=== PATIENT | female | born 1950 | race Caucasian/White ===

== ENCOUNTER → 2022-11-25 | Outpatient (CLI) | payer MEDICARE, MEDICAID | LOC: WOUNDCARE 09:47 | PROVIDERS: ATTEND Family Medicine | DX: Z47.2 Encounter for removal of internal fixation device (principal); T81.31XA Disruption of external operation (surgical) wound, not elsewhere classified, initial encounter; T84.54XA Infection and inflammatory reaction due to internal left knee prosthesis, initial encounter; M35.00 Sjogren syndrome, unspecified; E66.01 Morbid (severe) obesity due to excess calories; E43 Unspecified severe protein-calorie malnutrition; M62.81 Muscle weakness (generalized); D50.0 Iron deficiency anemia secondary to blood loss (chronic); N18.2 Chronic kidney disease, stage 2 (mild); L24.A2 Irritant contact dermatitis due to fecal, urinary or dual incontinence; R15.9 Full incontinence of feces; R32 Unspecified urinary incontinence; R19.7 Diarrhea, unspecified; E55.9 Vitamin D deficiency, unspecified | CPT/HCPCS: 11043; 87070; 87077; 87205 ==

== ENCOUNTER → 2022-11-30 | Outpatient (CLI) | payer MEDICARE, MEDICAID | LOC: WOUNDCARE 13:57 | PROVIDERS: ATTEND Family Medicine | DX: Z47.2 Encounter for removal of internal fixation device (principal); T81.31XA Disruption of external operation (surgical) wound, not elsewhere classified, initial encounter; T84.54XA Infection and inflammatory reaction due to internal left knee prosthesis, initial encounter; I96 Gangrene, not elsewhere classified; M35.00 Sjogren syndrome, unspecified; E66.01 Morbid (severe) obesity due to excess calories; E43 Unspecified severe protein-calorie malnutrition; D50.0 Iron deficiency anemia secondary to blood loss (chronic); N18.2 Chronic kidney disease, stage 2 (mild); L24.A2 Irritant contact dermatitis due to fecal, urinary or dual incontinence; E55.9 Vitamin D deficiency, unspecified; B95.2 Enterococcus as the cause of diseases classified elsewhere; R15.9 Full incontinence of feces; R19.7 Diarrhea, unspecified; Z68.43 Body mass index [BMI] 50.0-59.9, adult | CPT/HCPCS: 11042; 17250 ==

== ENCOUNTER → 2022-12-07 | Outpatient (CLI) | payer MEDICARE, MEDICAID | LOC: WOUNDCARE 13:44 | PROVIDERS: ATTEND Family Medicine | DX: T81.31XA Disruption of external operation (surgical) wound, not elsewhere classified, initial encounter (principal); Z47.2 Encounter for removal of internal fixation device; T84.54XA Infection and inflammatory reaction due to internal left knee prosthesis, initial encounter; M35.00 Sjogren syndrome, unspecified; E66.01 Morbid (severe) obesity due to excess calories; E43 Unspecified severe protein-calorie malnutrition; M62.81 Muscle weakness (generalized); D50.0 Iron deficiency anemia secondary to blood loss (chronic); N18.2 Chronic kidney disease, stage 2 (mild); L24.A2 Irritant contact dermatitis due to fecal, urinary or dual incontinence; R15.9 Full incontinence of feces; R32 Unspecified urinary incontinence; R19.7 Diarrhea, unspecified; E55.9 Vitamin D deficiency, unspecified; B95.2 Enterococcus as the cause of diseases classified elsewhere; D52.9 Folate deficiency anemia, unspecified; I96 Gangrene, not elsewhere classified | CPT/HCPCS: 11043 ==

== ENCOUNTER → 2022-12-10 | Outpatient (CLI) | payer MEDICARE, MEDICAID ==
[~2022-12-10] MED LIST: GADOTERATE 0.5 MMOL/ML (CLARISCAN) 20 ML VIAL IV ONE
--- NOTE | 2022-12-10 13:32 | Diagnostic Imaging Report ---
PROCEDURE: MRI left joint lower extremity with and without contrast. TECHNIQUE: Multiplanar, multisequence pre and post contrast-enhanced MRI of the left lower extremity was accomplished. INDICATION: Knee pain. Prior knee arthroplasty has been removed. Skin wound. COMPARISON: None available. FINDINGS: There are surgical changes from prior total knee arthroplasty has been removed and antibiotic spacer is placed at the level of the expected tibia and fibular components. There are central intramedullary tracks of T2 hyperintensity and T1 isointense signal within the proximal tibia and fibula likely correspond to sites of the stem components that were removed. There is enhancement within these intramedullary tracks which could be granulation tissue versus infection. A concern for infection is further a spine fact there is a dermal wound in the infrapatellar region that appears to directly communicate with the joint space at the level the intercondylar region. There is a small amount of fluid between the interbody spacers the could represent abscess. Outside of the intramedullary tracks, there is no significant T2 hyperintense or T1 hypointense marrow replacement. The patella is high riding and a normal patellar tendon is not identified. Therefore, this may be chronically torn. IMPRESSION: 1. Dermal wound in the infrapatellar region has a sinus tract directly communicating with the knee joint and therefore intra-articular infection is likely present. 2. Tibial and femoral spaces are in place. The enhancement around the spacers may be infectious in nature or due to granulation tissue from prior hardware being removed. 3. The signal within the intramedullary tibia and femoral tracks from prior hardware removal could be due to osteomyelitis or granulation tissue associated with the hardware removal. Dictated by: Dictated on workstation # [id number]
== END ==
LOC: RAD 09:25
PROVIDERS: ATTEND Family Medicine
DX: Z47.2 Encounter for removal of internal fixation device (principal); T81.31XA Disruption of external operation (surgical) wound, not elsewhere classified, initial encounter; T84.54XA Infection and inflammatory reaction due to internal left knee prosthesis, initial encounter; M35.00 Sjogren syndrome, unspecified; E66.01 Morbid (severe) obesity due to excess calories; E43 Unspecified severe protein-calorie malnutrition; M62.81 Muscle weakness (generalized); D50.0 Iron deficiency anemia secondary to blood loss (chronic); N18.2 Chronic kidney disease, stage 2 (mild); L24.A2 Irritant contact dermatitis due to fecal, urinary or dual incontinence; R15.9 Full incontinence of feces; R32 Unspecified urinary incontinence; R19.7 Diarrhea, unspecified; E55.9 Vitamin D deficiency, unspecified; B95.2 Enterococcus as the cause of diseases classified elsewhere; D52.9 Folate deficiency anemia, unspecified
CPT/HCPCS: 73723

== ENCOUNTER → 2022-12-17 | Outpatient (CLI) | payer MEDICARE, MEDICAID | LOC: WOUNDCARE 12:08 | PROVIDERS: ATTEND Family Medicine | DX: T81.31XA Disruption of external operation (surgical) wound, not elsewhere classified, initial encounter (principal); Z47.2 Encounter for removal of internal fixation device; T84.54XA Infection and inflammatory reaction due to internal left knee prosthesis, initial encounter; M35.00 Sjogren syndrome, unspecified; E66.01 Morbid (severe) obesity due to excess calories; E43 Unspecified severe protein-calorie malnutrition; M62.81 Muscle weakness (generalized); D50.0 Iron deficiency anemia secondary to blood loss (chronic); N18.2 Chronic kidney disease, stage 2 (mild); L24.A2 Irritant contact dermatitis due to fecal, urinary or dual incontinence; R15.9 Full incontinence of feces; R32 Unspecified urinary incontinence; R19.7 Diarrhea, unspecified; E55.9 Vitamin D deficiency, unspecified; B95.2 Enterococcus as the cause of diseases classified elsewhere; D52.9 Folate deficiency anemia, unspecified; I96 Gangrene, not elsewhere classified | CPT/HCPCS: 11042 ==

== ENCOUNTER → 2022-12-24 | Outpatient (CLI) | payer MEDICARE, MEDICAID | LOC: WOUNDCARE 14:42 | PROVIDERS: ATTEND Family Medicine | DX: I96 Gangrene, not elsewhere classified (principal); T81.31XA Disruption of external operation (surgical) wound, not elsewhere classified, initial encounter; T84.54XA Infection and inflammatory reaction due to internal left knee prosthesis, initial encounter; M35.00 Sjogren syndrome, unspecified; M62.81 Muscle weakness (generalized); D52.9 Folate deficiency anemia, unspecified; N18.2 Chronic kidney disease, stage 2 (mild); L24.A2 Irritant contact dermatitis due to fecal, urinary or dual incontinence; E66.01 Morbid (severe) obesity due to excess calories; E43 Unspecified severe protein-calorie malnutrition; R19.7 Diarrhea, unspecified; B95.2 Enterococcus as the cause of diseases classified elsewhere; R15.9 Full incontinence of feces; R32 Unspecified urinary incontinence; E55.9 Vitamin D deficiency, unspecified; Z47.2 Encounter for removal of internal fixation device; Z68.41 Body mass index [BMI] 40.0-44.9, adult | CPT/HCPCS: 99212 ==

== ENCOUNTER → 2023-01-13 | Outpatient (CLI) | payer MEDICARE, MEDICAID | LOC: WOUNDCARE 13:13 | PROVIDERS: ATTEND Family Medicine | DX: T81.31XA Disruption of external operation (surgical) wound, not elsewhere classified, initial encounter (principal); T84.54XA Infection and inflammatory reaction due to internal left knee prosthesis, initial encounter; M35.00 Sjogren syndrome, unspecified; E66.01 Morbid (severe) obesity due to excess calories; E43 Unspecified severe protein-calorie malnutrition; M62.81 Muscle weakness (generalized); D50.0 Iron deficiency anemia secondary to blood loss (chronic); N18.2 Chronic kidney disease, stage 2 (mild); L24.A2 Irritant contact dermatitis due to fecal, urinary or dual incontinence; R15.9 Full incontinence of feces; R32 Unspecified urinary incontinence; R19.7 Diarrhea, unspecified; E55.9 Vitamin D deficiency, unspecified; B95.2 Enterococcus as the cause of diseases classified elsewhere; D52.9 Folate deficiency anemia, unspecified; M86.262 Subacute osteomyelitis, left tibia and fibula | CPT/HCPCS: 99212 ==

== ENCOUNTER → 2023-01-31 | Outpatient (CLI) | payer MEDICARE, MEDICAID ==
[2023-01-31 10:41] LABS: BILIRUBIN,URINE NEGATIVE (NEGATIVE); CLARITY,URINE CLOUDY; COLOR,URINE YELLOW; GLUCOSE, URINE (UA) NEGATIVE (NEGATIVE); KETONES,URINE NEGATIVE (NEGATIVE); LEUKOCYTE ESTERASE ,URINE 2+ (NEGATIVE); NITRITE,URINE NEGATIVE (NEGATIVE); PROTEIN,URINE NEGATIVE (NEGATIVE)
[2023-01-31 10:51] LABS: BACTERIA,URINE TRACE /HPF; SQUAMOUS EPITHELIAL CELL,UR RARE /HPF; WBC,URINE 25-50 /HPF
== END ==
LOC: CVS 10:33
PROVIDERS: ATTEND Internal Medicine
DX: Z01.89 Encounter for other specified special examinations (principal)
CPT/HCPCS: 81000; 87077; 87088; 87186

== ENCOUNTER 2023-03-21 16:02 | Emergency (ER) | payer MEDICARE, MEDICAID ==
[~2023-03-21] VITALS: Ht 170.2 cm; Wt 112.9 kg
[2023-03-21 16:47] LABS: BILIRUBIN,URINE NEGATIVE (NEGATIVE); CLARITY,URINE CLEAR; COLOR,URINE YELLOW; GLUCOSE, URINE (UA) NEGATIVE (NEGATIVE); KETONES,URINE NEGATIVE (NEGATIVE); LEUKOCYTE ESTERASE ,URINE 3+ (NEGATIVE); NITRITE,URINE POSITIVE (NEGATIVE); PH,URINE 6.5 (5-9); PROTEIN,URINE TRACE (NEGATIVE)
[2023-03-21 17:04] LABS: BASOPHILS % (AUTO) 0 % (0-10); EOSINOPHILS # (AUTO) 0.1 10^3/uL (0.0-0.3); EOSINOPHILS % (AUTO) 1 % (0-10); HEMATOCRIT 34 % (35-52); LYMPHOCYTES # (AUTO) 1.1 10^3/uL (1.0-4.0); LYMPHOCYTES % (AUTO) 10 % (12-44); MEAN CORPUSCULAR HEMOGLOBIN 28 pg (25-34); MEAN CORPUSCULAR HGB CONC 32 g/dL (32-36); MEAN CORPUSCULAR VOLUME 87 fL (80-99); MEAN PLATELET VOLUME 11.3 fL (9.0-12.2); MONOCYTES # (AUTO) 0.9 10^3/uL (0.0-1.0); MONOCYTES % (AUTO) 8 % (0-12); NEUTROPHILS # (AUTO) 8.6 10^3/uL (1.8-7.8); NEUTROPHILS % (AUTO) 80 % (42-75); PLATELET COUNT 262 10^3/uL (130-400); WHITE BLOOD COUNT 10.8 10^3/uL (4.3-11.0)
[2023-03-21 17:12] LABS: RBC,URINE RARE /HPF
[2023-03-21 17:13] LABS: ALBUMIN 2.6 GM/DL (3.2-4.5); POTASSIUM 3.7 MMOL/L (3.6-5.0)
[2023-03-21 17:13] LABS: BACTERIA,URINE MODERATE /HPF; CALCIUM OXALATE CRYSTALS,UR RARE /LPF; SQUAMOUS EPITHELIAL CELL,UR 0-2 /HPF
[2023-03-21 17:14] LABS: CALCIUM 8.3 MG/DL (8.5-10.1)
[2023-03-21 17:15] LABS: TOTAL PROTEIN 6.9 GM/DL (6.4-8.2)
[2023-03-21 17:17] LABS: BILIRUBIN,TOTAL 0.3 MG/DL (0.1-1.0)
[2023-03-21 17:19] LABS: CREATININE SERUM 0.88 MG/DL (0.60-1.30); INR 1.1 (0.8-1.4); PROTHROMBIN TIME PATIENT 14.4 SEC (12.2-14.7)
--- NOTE | 2023-03-21 17:57 | ED Lower Extremity ---
General Chief Complaint: Lower Extremity Stated Complaint: LEFT KNEE Nursing Triage Note: PT BROUGHT IN BY [facility] FROM [facility] WITH COMPLAINT OF POSSIBLE INFECTION OF AKA OF LEFT LEG. PT HAD AKA February. (PENELOPE HEAD) History of Present Illness Date Seen by Provider: March 21, 2023 Time Seen by Provider: 16:06 Initial Comments 72 year old female presents with concerns for infection to her left AKA. Surgery was in [place] on 03/09/2023. Staff at [facility] felt the wound was red and warm. She had more drainage over the last 12 hours. Dressing has serosanguineous drainage present. She is unsure when it was last changed. A new dressing was applied. She had TKR by Dr. Rodriguez in [place], [place] that became infected and was then removed. She attended wound care here and final plan was AKA, as it was not felt the infection could be cleared and new implants placed. Patient denies injury to her left leg. She has limited mobility and pressure to the stump. Onset: this morning Pain/Injury Location: left leg Method of Injury: unknown (PENELOPE HEAD) Allergies and Home Medications Allergies Coded Allergies: latex (Unverified Allergy, Unknown, 12/10/22) Patient Home Medication List Home Medication List Reviewed: Yes (PENELOPE HEAD) Ciprofloxacin HCl (Ciprofloxacin HCl) 500 Mg Tablet, 500 MG PO BID Prescribed by: PENELOPE HEAD on 03/21/231808 Review of Systems Constitutional: no symptoms reported, see HPI Skin: see HPI, other (wound concerns left AKA) (PENELOPE HEAD) All Other Systems Reviewed Negative Unless Noted: Yes (PENELOPE HEAD) Past Bngyjva-Mnvjej-Jqyiut Hx Patient Social History Tobacco Use?: No Use of E-Cig and/or Vaping dev: No Substance use?: No Alcohol Use?: No Pt feels they are or have been: No (PENELOPE HEAD) Family Medical History Reviewed Nursing Family Hx (PENELOPE HEAD) Physical Exam Vital Signs Vital Signs - First Documented 03/21/23 16:06 Temp 36.0 Pulse 64 Resp 16 B/P (MAP) 120/64 (82) Pulse Ox 100 O2 Delivery Room Air (BRENDA ECHEVARRIA MD) Vital Signs Capillary Refill : Less Than 3 Seconds (PENELOPE HEAD) Height, Weight, BMI Height: '" Weight: lbs. oz. kg; 38.00 BMI Method: General Appearance: WD/WN, no apparent distress Neck: non-tender, full range of motion, supple, normal inspection Cardiovascular: normal peripheral pulses, regular rate, rhythm Respiratory: chest non-tender, lungs clear, normal breath sounds Legs: right leg non-tender, right leg normal inspection, right leg limited range of motion; left leg soft tissue tenderness (incision to left AKA, sutures intact, no active bleeding or drainage. No warmth and trace erythema on posterior side, blanchable. ) Neurologic/Psychiatric: no motor/sensory deficits, alert, normal mood/affect, oriented x 3 Skin: normal color, warm/dry (PENELOPE HEAD) Progress/Results/Core Measures Results/Orders Lab Results Laboratory Tests Test 03/21/23 16:40 03/21/23 16:50 Range/Units Urine Color YELLOW Urine Clarity CLEAR Urine pH 6.5 5-9 Urine Specific [place] <=1.005 1.016-1.022 Urine Protein TRACE H NEGATIVE Urine Glucose (UA) NEGATIVE NEGATIVE Urine Ketones NEGATIVE NEGATIVE Urine Nitrite POSITIVE H NEGATIVE Urine Bilirubin NEGATIVE NEGATIVE Urine Urobilinogen 0.2 < = 1.0 MG/DL Urine Leukocyte Esterase 3+ H NEGATIVE Urine RBC (Auto) 1+ H NEGATIVE Urine RBC RARE /HPF Urine WBC 10-25 H /HPF Urine Squamous Epithelial Cells 0-2 /HPF Urine Crystals PRESENT H /LPF Urine Calcium Oxalate Crystals RARE H /LPF Urine Bacteria MODERATE H /HPF Urine Casts NONE /LPF Urine Mucus NEGATIVE /LPF Urine Culture Indicated YES White Blood Count 10.8 4.3-11.0 10^3/uL Red Blood Count 3.95 3.80-5.11 10^6/uL Hemoglobin 11.0 L 11.5-16.0 g/dL Hematocrit 34 L 35-52 % Mean Corpuscular Volume 87 80-99 fL Mean Corpuscular Hemoglobin 28 25-34 pg Mean Corpuscular Hemoglobin Concent 32 32-36 g/dL Red Cell Distribution Width 17.6 H 10.0-14.5 % Platelet Count 262 130-400 10^3/uL Mean Platelet Volume 11.3 9.0-12.2 fL Immature Granulocyte % (Auto) 1 % Neutrophils (%) (Auto) 80 H 42-75 % Lymphocytes (%) (Auto) 10 L 12-44 % Monocytes (%) (Auto) 8 0-12 % Eosinophils (%) (Auto) 1 0-10 % Basophils (%) (Auto) 0 0-10 % Neutrophils # (Auto) 8.6 H 1.8-7.8 10^3/uL Lymphocytes # (Auto) 1.1 1.0-4.0 10^3/uL Monocytes # (Auto) 0.9 0.0-1.0 10^3/uL Eosinophils # (Auto) 0.1 0.0-0.3 10^3/uL Basophils # (Auto) 0.0 0.0-0.1 10^3/uL Immature Granulocyte # (Auto) 0.1 0.0-0.1 10^3/uL Prothrombin Time 14.4 12.2-14.7 SEC INR Comment 1.1 0.8-1.4 Activated Partial Thromboplast Time 46 H 24-35 SEC Sodium Level 138 135-145 MMOL/L Potassium Level 3.7 3.6-5.0 MMOL/L Chloride Level 99 98-107 MMOL/L Carbon Dioxide Level 26 21-32 MMOL/L Anion Gap 13 5-14 MMOL/L Blood Urea Nitrogen 29 H 7-18 MG/DL Creatinine 0.88 0.60-1.30 MG/DL Estimat Glomerular Filtration Rate 70 BUN/Creatinine Ratio 33 Glucose Level 97 70-105 MG/DL Calcium Level 8.3 L 8.5-10.1 MG/DL Corrected Calcium 9.4 8.5-10.1 MG/DL Total Bilirubin 0.3 0.1-1.0 MG/DL Aspartate Amino Transf (AST/SGOT) 18 5-34 U/L Alanine Aminotransferase (ALT/SGPT) 11 0-55 U/L Alkaline Phosphatase 93 40-136 U/L C-Reactive Protein High Sensitivity 13.15 H 0.00-0.50 MG/DL Total Protein 6.9 6.4-8.2 GM/DL Albumin 2.6 L 3.2-4.5 GM/DL (BRENDA ECHEVARRIA MD) Vital Signs/I&O 03/21/23 16:06 Temp 36.0 Pulse 64 Resp 16 B/P (MAP) 120/64 (82) Pulse Ox 100 O2 Delivery Room Air (BRENDA ECHEVARRIA MD) Blood Pressure Mean: 82 Progress Progress Note : Time: 16:06 Progress Note Patient assessed, will obtain labs and reevaluate. 1640 new ABD dressing to left stump, no active bleeding. Will assess to deter mine if any bleeding. 1730 dressing dry and intact to left stump. Labs show no evidence of infection with normal WBC. UA shows UTI. Will provide antibiotics, pain medication, and return to [facility]. Patient requesting transfer back to [facility]. 1740 [facility] notified, they do not have a van that her wc can fit in. They are requesting [facility] to return her. 1800 [facility] does not have unit available, due to airport transfer. [facility] notified and patient reports she has an old WC in her room and it will fit in their van. 181 [facility] reports the other wc is not available, PT has taken it back. Patient told she will need to wait for [facility] to transport her. She is agreeable. Pain improved. 1910 patient has no complaints. Called [facility], no unit available to transport patient. [facility] notified and they have no ability to get patient. 1956 [facility] here to transport patient. Dressing continues to have no bleeding at left stump. Discharge instructions and return precautions reviewed (PENELOPE HEAD) Departure Impression Primary Impression: Above knee amputation of left lower extremity Additional Impression: UTI (urinary tract infection) Qualified Codes: N30.01 - Acute cystitis with hematuria Disposition: HOME, SELF-CARE Condition: Improved Departure-Patient Inst. Decision time for Depature: 18:00 (PENELOPE HEAD) Referrals: KALIN LONDONO MD (PCP/Family) Primary Care Physician Patient Instructions: Urinary Tract Infection, Adult (DC), Wound Care (DC) Add. Discharge Instructions: Change dressing to left stump three times daily and more often as needed. Antibiotics for UTI. Keep scheduled appointment with primary care and surgeon in [place] as needed. Change position every 2 hours while in bed and keep pillow under left thigh, to keep pressure off left stump. Return to the emergency department for new, urgent healthcare needs. All discharge instructions reviewed with patient and/or family. Voiced understanding. Scripts Ciprofloxacin HCl (Ciprofloxacin HCl) 500 Mg Tablet 500 MG PO BID, #14 TAB 0 Refills Prov: PENELOPE HEAD 03/21/23 ATTENDING PHYSICIAN NOTE: I was physically present as attending physician in the emergency department during the care of this patient, but I was not directly involved in the decision making or delivery of care for this patient. (BRENDA ECHEVARRIA MD) PENELOPE HEAD March 21, 2023 17:57 BRENDA ECHEVARRIA MD March 21, 2023 21:24
[2023-03-21] MEDS ORDERED: CIPROFLOXACIN 500 MG (CIPRO) TABLET PO STA (18:01)
[2023-03-21] MEDS ORDERED: HYDROcodone/APAP 7.5 MG/325 MG (LORTAB, LORCET PLUS) TABLET PO STA (18:01)
[2023-03-21] MEDS ORDERED: CIPR500T5 PO (18:09)
[2023-03-21 20:08] VITALS: BP 169/82
== END 2023-03-21 20:08 | disposition home or self-care (01) ==
LOC: EDUNIT# 16:02 → ER 16:04
DX: Z89.612 Acquired absence of left leg above knee (principal); N39.0 Urinary tract infection, site not specified
CPT/HCPCS: 36415; 80053; 81000; 85025; 85610; 85730; 86141; 87077; 87088

== ENCOUNTER → 2023-04-05 | Outpatient (CLI) | payer MEDICARE, MEDICAID ==
[~2023-04-05] MED LIST changes: +CIPR500T5 PO; -GADOTERATE 0.5 MMOL/ML (CLARISCAN) 20 ML VIAL IV ONE
== END ==
LOC: WOUNDCARE 12:21
PROVIDERS: ATTEND Family Medicine
DX: T81.31XA Disruption of external operation (surgical) wound, not elsewhere classified, initial encounter (principal); A49.02 Methicillin resistant Staphylococcus aureus infection, unspecified site; D46.4 Refractory anemia, unspecified; E66.01 Morbid (severe) obesity due to excess calories; Z68.41 Body mass index [BMI] 40.0-44.9, adult; E44.0 Moderate protein-calorie malnutrition; E55.9 Vitamin D deficiency, unspecified; M35.00 Sjogren syndrome, unspecified
CPT/HCPCS: 11042; 87070; 87205; G0463; 87077

== ENCOUNTER → 2023-04-13 | Outpatient (CLI) | payer MEDICARE, MEDICAID | LOC: WOUNDCARE 14:01 | PROVIDERS: ATTEND Family Medicine | DX: T81.31XA Disruption of external operation (surgical) wound, not elsewhere classified, initial encounter (principal); B95.62 Methicillin resistant Staphylococcus aureus infection as the cause of diseases classified elsewhere; D46.4 Refractory anemia, unspecified; E66.01 Morbid (severe) obesity due to excess calories; Z68.41 Body mass index [BMI] 40.0-44.9, adult; E44.0 Moderate protein-calorie malnutrition; E55.9 Vitamin D deficiency, unspecified; M35.00 Sjogren syndrome, unspecified; T87.89 Other complications of amputation stump; I96 Gangrene, not elsewhere classified | CPT/HCPCS: 11042; G0463 ==

== ENCOUNTER → 2023-04-16 | Outpatient (CLI) | payer MEDICAID, MEDICARE ==
[~2023-04-16] MED LIST changes: +CATHETER FLUSH 10 ML SYR IV PRN; +HOLD METFORMIN - RECEIVED CONTRAST 20 ML VIAL IV SCH; +IOHEXOL 350 MG/ML 100 ML (OMNIPAQUE 350) VIAL IV ONE; +NS 100 ML (IVPB) BAG IV ONE
--- NOTE | 2023-04-16 14:48 | Diagnostic Imaging Report ---
PROCEDURE: CT left lower extremity with contrast. TECHNIQUE: Multiple axial images of the left lower extremity were obtained after intravenous administration of iodinated contrast. Auto Exposure Controls were utilized during the CT exam to meet ALARA standards for radiation dose reduction. INDICATION: Thrcn-pwn-ujtl amputation. Postoperative infection. COMPARISON: Preoperative MRI from 12/10/2022. FINDINGS: Kgsjn-qiu-axsi amputation has been performed at the level of the mid femoral shaft. Just distal to the residual femoral shaft, there is either a single collection within the communication between two bulbous components or two separate collections. The more posterior larger collection measures 5.6 x 3.8 x 5.2 cm. Anterior to this, there is a thin elongated component of a collection measuring 5.2 x 3.3 x 2.1 cm. There is induration within the subcutaneous fat of the amputation stump overlying these collections. A small amount of periosteal reaction is present at the level of the distal femoral shaft, and this can be seen as a physiologic response following amputation. Alternatively, osteomyelitis could also give this appearance. The remainder of the hip is normal in appearance. A large amount of stool is present within the visualized aspects of the rectum. IMPRESSION: 1. There are either two adjacent or a single rim-enhancing fluid collection with a thin neck in the amputation stump at the distal aspect of the femur. This fluid collection could be a hematoma, but the sterility cannot be assessed by imaging. Ultrasound-guided aspiration could be performed for fluid sampling, as deemed clinically indicated. 2. Mild periosteal reaction of the distal femoral shaft at the level of the amputation may be physiologic response following amputation. However, osteomyelitis could also give this appearance. Dictated by: Dictated on workstation # [id number]
== END ==
LOC: RAD 04-15 10:15
PROVIDERS: ATTEND Family Medicine
DX: T81.31XA Disruption of external operation (surgical) wound, not elsewhere classified, initial encounter (principal); A49.02 Methicillin resistant Staphylococcus aureus infection, unspecified site; D46.4 Refractory anemia, unspecified; E66.01 Morbid (severe) obesity due to excess calories; E44.0 Moderate protein-calorie malnutrition; E55.9 Vitamin D deficiency, unspecified; M35.00 Sjogren syndrome, unspecified; T87.89 Other complications of amputation stump; Z68.41 Body mass index [BMI] 40.0-44.9, adult; Z98.890 Other specified postprocedural states
CPT/HCPCS: 73701

== ENCOUNTER → 2023-04-19 | Outpatient (CLI) | payer MEDICARE ==
[~2023-04-19] MED LIST changes: -CATHETER FLUSH 10 ML SYR IV PRN; -HOLD METFORMIN - RECEIVED CONTRAST 20 ML VIAL IV SCH; -IOHEXOL 350 MG/ML 100 ML (OMNIPAQUE 350) VIAL IV ONE; -NS 100 ML (IVPB) BAG IV ONE
== END ==
LOC: WOUNDCARE 12:18
PROVIDERS: ATTEND Family Medicine
DX: T81.31XA Disruption of external operation (surgical) wound, not elsewhere classified, initial encounter (principal); A49.01 Methicillin susceptible Staphylococcus aureus infection, unspecified site; D46.4 Refractory anemia, unspecified; E66.01 Morbid (severe) obesity due to excess calories; E44.0 Moderate protein-calorie malnutrition; E55.9 Vitamin D deficiency, unspecified; M35.00 Sjogren syndrome, unspecified; T87.89 Other complications of amputation stump; T87.44 Infection of amputation stump, left lower extremity; I96 Gangrene, not elsewhere classified; Z68.41 Body mass index [BMI] 40.0-44.9, adult
CPT/HCPCS: 99212

== ENCOUNTER → 2023-04-26 | Outpatient (CLI) | payer MEDICARE ==
[2023-04-26 13:34] LABS: BASOPHILS # (AUTO) 0.1 10^3/uL (0.0-0.1); BASOPHILS % (AUTO) 1 % (0-10); EOSINOPHILS % (AUTO) 0 % (0-10); HEMATOCRIT 29 % (35-52); HEMOGLOBIN 8.9 g/dL (11.5-16.0); LYMPHOCYTES # (AUTO) 1.6 10^3/uL (1.0-4.0); LYMPHOCYTES % (AUTO) 17 % (12-44); MEAN CORPUSCULAR HEMOGLOBIN 27 pg (25-34); MEAN CORPUSCULAR HGB CONC 31 g/dL (32-36); MEAN CORPUSCULAR VOLUME 87 fL (80-99); MEAN PLATELET VOLUME 11.1 fL (9.0-12.2); MONOCYTES # (AUTO) 0.7 10^3/uL (0.0-1.0); MONOCYTES % (AUTO) 7 % (0-12); NEUTROPHILS # (AUTO) 7.1 10^3/uL (1.8-7.8); NEUTROPHILS % (AUTO) 75 % (42-75); PLATELET COUNT 206 10^3/uL (130-400); WHITE BLOOD COUNT 9.5 10^3/uL (4.3-11.0)
== END ==
LOC: WOUNDCARE 12:28
PROVIDERS: ATTEND Family Medicine
DX: T81.31XA Disruption of external operation (surgical) wound, not elsewhere classified, initial encounter (principal); A49.02 Methicillin resistant Staphylococcus aureus infection, unspecified site; D46.4 Refractory anemia, unspecified; E66.01 Morbid (severe) obesity due to excess calories; Z68.41 Body mass index [BMI] 40.0-44.9, adult; E44.0 Moderate protein-calorie malnutrition; E55.9 Vitamin D deficiency, unspecified; M35.00 Sjogren syndrome, unspecified; T87.89 Other complications of amputation stump; T87.44 Infection of amputation stump, left lower extremity; I96 Gangrene, not elsewhere classified
CPT/HCPCS: 85025; G0463; 36415; 99212

== ENCOUNTER → 2023-05-03 | Outpatient (CLI) | payer MEDICARE | LOC: WOUNDCARE 12:36 | PROVIDERS: ATTEND Family Medicine | DX: T81.31XA Disruption of external operation (surgical) wound, not elsewhere classified, initial encounter (principal); D46.4 Refractory anemia, unspecified; E66.01 Morbid (severe) obesity due to excess calories; E44.0 Moderate protein-calorie malnutrition; E55.9 Vitamin D deficiency, unspecified; T87.89 Other complications of amputation stump; A49.02 Methicillin resistant Staphylococcus aureus infection, unspecified site; M35.00 Sjogren syndrome, unspecified; T87.44 Infection of amputation stump, left lower extremity; Z68.41 Body mass index [BMI] 40.0-44.9, adult | CPT/HCPCS: 11042; A6197; G0463 ==

== ENCOUNTER → 2023-05-10 | Outpatient (CLI) | payer MEDICARE | LOC: WOUNDCARE 12:32 | PROVIDERS: ATTEND Family Medicine | DX: I96 Gangrene, not elsewhere classified (principal); T81.31XA Disruption of external operation (surgical) wound, not elsewhere classified, initial encounter; A49.02 Methicillin resistant Staphylococcus aureus infection, unspecified site; D46.4 Refractory anemia, unspecified; E66.01 Morbid (severe) obesity due to excess calories; E44.0 Moderate protein-calorie malnutrition; E55.9 Vitamin D deficiency, unspecified; M35.00 Sjogren syndrome, unspecified; T87.89 Other complications of amputation stump; T87.44 Infection of amputation stump, left lower extremity; B37.2 Candidiasis of skin and nail; Z68.41 Body mass index [BMI] 40.0-44.9, adult | CPT/HCPCS: 11042; 87070; 87205; G0463; 87077; 87186 ==

== ENCOUNTER → 2023-05-17 | Outpatient (CLI) | payer MEDICARE | LOC: WOUNDCARE 12:32 | PROVIDERS: ATTEND Family Medicine | DX: I96 Gangrene, not elsewhere classified (principal); T81.31XA Disruption of external operation (surgical) wound, not elsewhere classified, initial encounter; D46.4 Refractory anemia, unspecified; A49.02 Methicillin resistant Staphylococcus aureus infection, unspecified site; E66.01 Morbid (severe) obesity due to excess calories; E44.0 Moderate protein-calorie malnutrition; E55.9 Vitamin D deficiency, unspecified; M35.00 Sjogren syndrome, unspecified; T87.89 Other complications of amputation stump; T87.44 Infection of amputation stump, left lower extremity; B37.2 Candidiasis of skin and nail; Z68.41 Body mass index [BMI] 40.0-44.9, adult | CPT/HCPCS: 11042; G0463 ==

== ENCOUNTER → 2023-05-24 | Outpatient (CLI) | payer MEDICARE | LOC: WOUNDCARE 12:21 | PROVIDERS: ATTEND Family Medicine | DX: I96 Gangrene, not elsewhere classified (principal); T81.31XA Disruption of external operation (surgical) wound, not elsewhere classified, initial encounter; A49.02 Methicillin resistant Staphylococcus aureus infection, unspecified site; D46.4 Refractory anemia, unspecified; E66.01 Morbid (severe) obesity due to excess calories; E44.0 Moderate protein-calorie malnutrition; E55.9 Vitamin D deficiency, unspecified; M35.00 Sjogren syndrome, unspecified; T87.89 Other complications of amputation stump; T87.44 Infection of amputation stump, left lower extremity; B37.2 Candidiasis of skin and nail; Z68.41 Body mass index [BMI] 40.0-44.9, adult | CPT/HCPCS: 11042; G0463 ==

== ENCOUNTER 2023-05-26 11:58 | Day surgery (SDC) | payer MEDICARE, MEDICAID ==
[~2023-05-26] VITALS: Ht 170.2 cm; Wt 109.3 kg
[2023-05-26] MEDS ORDERED: LIDOCAINE 1% INJ 20 ML VIAL ONE (12:52)
[2023-05-26] MEDS ORDERED: LIDOCAINE 1% INJ 20 ML VIAL INJ ONE (14:15)
--- NOTE | 2023-05-26 14:29 | Progress Note-Post Operative ---
Post-Operative Progess Note Surgeon (s)/[employer] Worker (s) Surgeon LEONELA GARIBAY MD [employer] Worker: none Pre-Operative Diagnosis dysphagia with zenker's diverticulum Post-Operative Diagnosis same Procedure & Operative Findings Date of Procedure 05/26/23 Procedure Performed/Findings removal and replacement gastrostomy tube. Anesthesia Type local Estimated Blood Loss Estimated blood loss (mL): minimal Specimens/Packing Specimens Removed none LEONELA GARIBAY MD May 26, 2023 14:29
[2023-05-26 14:59] VITALS: BP 126/57
--- NOTE | 2023-05-26 20:30 | OPERATIVE REPORT ---
DATE OF SERVICE: 05/26/2023 ATTENDING PRIMARY CARE PHYSICIAN: Dr. Manjeet Cook. PREOPERATIVE DIAGNOSES: Dysphagia with history of Zenker's diverticulum. POSTOPERATIVE DIAGNOSES: Dysphagia with history of Zenker's diverticulum. PROCEDURE: Removal and replacement of gastrostomy tube with a 24 Palauan MICHAEL gastrostomy tube. SURGEON: Leonela Garibay MD ANESTHESIA: Local. ESTIMATED BLOOD LOSS: Minimal. DISPOSITION: The patient tolerated the procedure well. INDICATIONS: The patient is a 72-year-old female with multiple medical problems. She has been nonambulatory since 06/2022. She states that approximately in the fall, she developed significant dysphagia and had a hard time swallowing solids and liquids and was found to have a Zenker's diverticulum. She then underwent placement of a percutaneous gastrostomy tube with what appears to be a 24-Palauan gastrostomy tube. She states that the staff at her extended care facility had a difficult time using the gastrostomy tube due to food particulate matter clotting within the tube. DESCRIPTION OF PROCEDURE: The abdomen was prepped and draped in standard surgical fashion. 1% lidocaine was then used to anesthetize the skin abdominal wall musculature. The gastrostomy tube was then pulled with a steady gentle pressure with the entire tube intact. Good hemostasis was observed and a 24 Pal[place] MICHAEL gastrostomy tube was placed into the stomach through the tract without any resistance. The balloon was then inflated with 10 mm of sterile water and the external bolster placed over the abdominal wall to allow for gentle apposition of the abdominal wall layers and the stomach. A drain sponges were then placed. The patient tolerated the procedure well. The gastrostomy tube may be accessed and used at any time. Job ID: [id number] DocumentID: [id number] Dictated Date: 05/26/2023 14:33:56 Flight Engineer Performance Qualified Date: 05/26/2023 20:28:00 Dictated By: LEONELA GARIBAY MD [facility]
== END 2023-05-26 14:48 | disposition home or self-care (01) ==
LOC: SDC 11:58 → ENDO 14:48
PROVIDERS: ATTEND Surgery
DX: R13.10 Dysphagia, unspecified (principal); K22.5 Diverticulum of esophagus, acquired; Z93.1 Gastrostomy status; Z87.19 Personal history of other diseases of the digestive system

== ENCOUNTER → 2023-06-16 | Outpatient (CLI) | payer MEDICARE, MEDICAID | LOC: WOUNDCARE 12:52 | PROVIDERS: ATTEND Family Medicine | DX: T81.31XA Disruption of external operation (surgical) wound, not elsewhere classified, initial encounter (principal); D46.4 Refractory anemia, unspecified; E66.01 Morbid (severe) obesity due to excess calories; E44.0 Moderate protein-calorie malnutrition; E55.9 Vitamin D deficiency, unspecified; T87.89 Other complications of amputation stump; Z68.41 Body mass index [BMI] 40.0-44.9, adult; M35.00 Sjogren syndrome, unspecified | CPT/HCPCS: 11042; A6212; G0463 ==

== ENCOUNTER → 2023-06-21 | Outpatient (CLI) | payer MEDICARE, MEDICAID | LOC: WOUNDCARE 12:20 | PROVIDERS: ATTEND Family Medicine | DX: T81.31XA Disruption of external operation (surgical) wound, not elsewhere classified, initial encounter (principal); D46.4 Refractory anemia, unspecified; Z68.41 Body mass index [BMI] 40.0-44.9, adult; E44.0 Moderate protein-calorie malnutrition; M35.00 Sjogren syndrome, unspecified; T87.89 Other complications of amputation stump | CPT/HCPCS: 11042; A6212; G0463 ==

== ENCOUNTER → 2023-06-28 | Outpatient (CLI) | payer MEDICARE, MEDICAID | LOC: WOUNDCARE 12:25 | PROVIDERS: ATTEND Family Medicine | DX: T81.31XA Disruption of external operation (surgical) wound, not elsewhere classified, initial encounter (principal); D46.4 Refractory anemia, unspecified; E66.01 Morbid (severe) obesity due to excess calories; E44.0 Moderate protein-calorie malnutrition; E55.9 Vitamin D deficiency, unspecified; T87.89 Other complications of amputation stump; Z68.41 Body mass index [BMI] 40.0-44.9, adult; M35.00 Sjogren syndrome, unspecified | CPT/HCPCS: 11042; G0463 ==

== ENCOUNTER 2023-07-12 12:48 | Inpatient (IN) | payer MEDICARE, MEDICAID ==
[~2023-07-12] VITALS: Ht 170 cm; Wt 101.3 kg
[~2023-07-12 12:48] MED LIST changes: -ACET325T38; -ACID1TAB; -ALBU2.5V4 NEB; -AMIO200T65; -ARIP10TA55; -ASCO500T17 PO; -BETA60LO5 TOP; -CHOL10008 PO; -FLUO20TA28; -FLUT16SP22 NSEACH; -FURO40TA4; -HYDR-3820; -HYDR200T71; -LEVO112T55; -LOPE2CAP; -LOPE2TAB34; -LORA5TAB9; -LORAZ30SOL PEG; -MELA3TAB39; -MULT-422; -NYST15PO4 TOP; -ONDA4TAB11; -PANT40GR; -POTASSIUM CHLORIDE; -PRAM0.128; -PREG150C46; -PSEU15LI; -QUET25TA35 PO; -SIME125C78; -[UNRECOGNIZED DRUG - CODE]
[2023-07-12] MEDS ORDERED: NS IV 500 ML 500 ML IV ONE (13:15)
[2023-07-12 13:24] LABS: BASOPHILS # (AUTO) 0.1 10^3/uL (0.0-0.1); BASOPHILS % (AUTO) 0 % (0-10); EOSINOPHILS # (AUTO) 0.1 10^3/uL (0.0-0.3); EOSINOPHILS % (AUTO) 0 % (0-10); HEMATOCRIT 35 % (35-52); HEMOGLOBIN 10.9 g/dL (11.5-16.0); LYMPHOCYTES % (AUTO) 8 % (12-44); MEAN CORPUSCULAR HEMOGLOBIN 28 pg (25-34); MEAN CORPUSCULAR HGB CONC 31 g/dL (32-36); MEAN CORPUSCULAR VOLUME 89 fL (80-99); MEAN PLATELET VOLUME 11.3 fL (9.0-12.2); MONOCYTES # (AUTO) 1.1 10^3/uL (0.0-1.0); MONOCYTES % (AUTO) 8 % (0-12); NEUTROPHILS # (AUTO) 11.4 10^3/uL (1.8-7.8); NEUTROPHILS % (AUTO) 83 % (42-75); PLATELET COUNT 305 10^3/uL (130-400); WHITE BLOOD COUNT 13.7 10^3/uL (4.3-11.0)
--- NOTE | 2023-07-12 13:28 | ED General ---
General Chief Complaint: Respiratory Problems Stated Complaint: SOB | CONFUSION Nursing Triage Note: PT FROM [facility] WAS BEING SEEN AT WOUND CARE FOR LEFT LEG AND BECAME SOB AND WAS PUT ON 3L NC. PT STATES THAT SHE HAS BEEN SOB ALL WEEKEND AND CONFUSED. Source of Information: Patient Exam Limitations: No Limitations History of Present Illness Date Seen by Provider: Jul 12, 2023 Time Seen by Provider: 13:04 Initial Comments Here by wheelchair from wound care where she was noted to be short of breath and confused. She was therefore continued evaluation and work on her left lower extremity stump AKA. Patient admits to being short of breath this weekend and feeling a little confused. She is a resident of [facility]. She denies cough, nausea, vomiting or chest pain. She does have chronic Bal catheter. She does report difficulty with stooling. She is answering questions appropriately and following commands. She is under the care of [facility]. Timing/Duration: 2-3 Days Severity: Moderate Associated Systoms: No Chest Pain, No Cough, No Fever/Chills, No Nausea/Vomiting; Shortness of Air, Weakness Allergies and Home Medications Allergies Coded Allergies: latex (Unverified Allergy, Unknown, 12/10/22) Patient Home Medication List Home Medication List Reviewed: Yes Ciprofloxacin HCl (Ciprofloxacin HCl) 500 Mg Tablet, 500 MG PO BID Prescribed by: PENELOPE HEAD on 03/21/231808 Review of Systems Review of Systems Constitutional: see HPI; No chills, No fever EENTM: No nose congestion, No throat pain Respiratory: No cough; short of breath Cardiovascular: No chest pain; edema Gastrointestinal: abdominal pain, constipation; No nausea, No vomiting Genitourinary: see HPI Musculoskeletal: see HPI Skin: No change in color, No lesions Psychiatric/Neurological: See HPI, Weakness Past [id number] Hx Patient Social History Tobacco Use?: No Substance use?: No Alcohol Use?: No Past Medical History Surgery/Hospitalization HX: HYSTERECTOMY, LEFT LEG AMP, GALLBLADDER Surgeries: Yes Gallbladder, Hysterectomy, Orthopedic Respiratory: Yes Chronic Bronchitis Cardiac: Yes Chronic Edema/Swelling, Coronary Artery Disease Neurological: No Genitourinary: Yes Gastrointestinal: Yes Gastroesophageal Reflux Musculoskeletal: Yes Amputee Endocrine: Yes Hypothyroidsim Family Medical History No Pertinent Family Hx Physical Exam-Suspected Sepsis Physical Exam Vital Signs Vital Signs - First Documented Capillary Refill : Blood Pressure Mean: 85 Height, Weight, BMI Height: '" Weight: lbs. oz. kg; 37.00 BMI Method: General Appearance: No Apparent Distress, Obese, Other (Seems a bit confused) HEENT: PERRL/EOMI, Pharynx Normal Neck: Full Range of Motion, Non Tender, Supple Respiratory: Lungs Clear, Normal Breath Sounds Cardiovascular: Regular Rate, Rhythm Gastrointestinal: Non Tender, Soft Back: Normal Inspection, No CVA Tenderness, No Vertebral Tenderness Extremity: Non Tender, Pedal Edema (Right), Other (Left AKA) Neurologic/Psychiatric: Alert, Oriented x3 Skin: normal color, warm/dry Focused Exam Lactate Level 07/12/23 13:13: Lactic Acid Level 0.66 Lactic Acid Level Laboratory Tests Test 07/12/23 13:13 Lactic Acid Level 0.66 MMOL/L (0.50-2.00) Progress/Results/Core Measures Suspected Sepsis SIRS Temperature: Pulse: 76 Respiratory Rate: Laboratory Tests 07/12/23 13:13: White Blood Count 13.7H Blood Pressure 137 /59 Mean: 85 07/12/23 13:13: Lactic Acid Level 0.66 Laboratory Tests 07/12/23 13:13: Creatinine 0.79, INR Comment 1.2, Platelet Count 305, Total Bilirubin 0.3 Results/Orders Lab Results Laboratory Tests Test 07/12/23 13:13 07/12/23 13:45 Range/Units White Blood Count 13.7 H 4.3-11.0 10^3/uL Red Blood Count 3.95 3.80-5.11 10^6/uL Hemoglobin 10.9 L 11.5-16.0 g/dL Hematocrit 35 35-52 % Mean Corpuscular Volume 89 80-99 fL Mean Corpuscular Hemoglobin 28 25-34 pg Mean Corpuscular Hemoglobin Concent 31 L 32-36 g/dL Red Cell Distribution Width 16.0 H 10.0-14.5 % Platelet Count 305 130-400 10^3/uL Mean Platelet Volume 11.3 9.0-12.2 fL Immature Granulocyte % (Auto) 0 % Neutrophils (%) (Auto) 83 H 42-75 % Lymphocytes (%) (Auto) 8 L 12-44 % Monocytes (%) (Auto) 8 0-12 % Eosinophils (%) (Auto) 0 0-10 % Basophils (%) (Auto) 0 0-10 % Neutrophils # (Auto) 11.4 H 1.8-7.8 10^3/uL Lymphocytes # (Auto) 1.0 1.0-4.0 10^3/uL Monocytes # (Auto) 1.1 H 0.0-1.0 10^3/uL Eosinophils # (Auto) 0.1 0.0-0.3 10^3/uL Basophils # (Auto) 0.1 0.0-0.1 10^3/uL Immature Granulocyte # (Auto) 0.1 0.0-0.1 10^3/uL Prothrombin Time 15.0 H 12.2-14.7 SEC INR Comment 1.2 0.8-1.4 Activated Partial Thromboplast Time 45 H 24-35 SEC Urine Color YELLOW Urine Clarity CLEAR Urine pH 6.0 5-9 Urine Specific [place] 1.010 L 1.016-1.022 Urine Protein 1+ H NEGATIVE Urine Glucose (UA) NEGATIVE NEGATIVE Urine Ketones NEGATIVE NEGATIVE Urine Nitrite POSITIVE H NEGATIVE Urine Bilirubin NEGATIVE NEGATIVE Urine Urobilinogen 0.2 < = 1.0 MG/DL Urine Leukocyte Esterase 1+ H NEGATIVE Urine RBC (Auto) TRACE H NEGATIVE Urine RBC 2-5 H /HPF Urine WBC 5-10 H /HPF Urine Crystals NONE /LPF Urine Bacteria LARGE H /HPF Urine Casts NONE /LPF Urine Mucus NEGATIVE /LPF Urine Culture Indicated YES Sodium Level 135 135-145 MMOL/L Potassium Level 4.7 3.6-5.0 MMOL/L Chloride Level 97 L 98-107 MMOL/L Carbon Dioxide Level 30 21-32 MMOL/L Anion Gap 8 5-14 MMOL/L Blood Urea Nitrogen 66 H 7-18 MG/DL Creatinine 0.79 0.60-1.30 MG/DL Estimat Glomerular Filtration Rate 79 BUN/Creatinine Ratio 84 Glucose Level 117 H 70-105 MG/DL Lactic Acid Level 0.66 0.50-2.00 MMOL/L Calcium Level 8.7 8.5-10.1 MG/DL Corrected Calcium 9.2 8.5-10.1 MG/DL Total Bilirubin 0.3 0.1-1.0 MG/DL Aspartate Amino Transf (AST/SGOT) 22 5-34 U/L Alanine Aminotransferase (ALT/SGPT) 20 0-55 U/L Alkaline Phosphatase 141 H 40-136 U/L Troponin I 0.035 H <0.028 NG/ML C-Reactive Protein High Sensitivity 14.54 H 0.00-0.50 MG/DL B-Type Natriuretic Peptide 270.6 H <100.0 PG/ML Total Protein 7.7 6.4-8.2 GM/DL Albumin 3.4 3.2-4.5 GM/DL Free Thyroxine 0.91 0.70-1.48 NG/DL TSH [place] Testing 21.44 H 0.35-4.94 UIU/ML Influenza Type A (RT-PCR) Not Detected Not Detecte Influenza Type B (RT-PCR) Not Detected Not Detecte SARS-CoV-2 RNA (RT-PCR) Not Detected Not Detecte Blood Gas Puncture Site RIGHT RADIAL Blood Gas Patient Temperature 36.5 Arterial Blood pH 7.41 7.37-7.43 Arterial Blood Partial Pressure CO2 52 H 35-45 MMHG Arterial Blood Partial Pressure O2 72 L 79-93 MMHG Arterial Blood HCO3 33 H 23-27 MMOL/L Arterial Blood Total CO2 34.6 H 21.0-31.0 MMOL/L Arterial Blood Oxygen Saturation 95 94-100 % Arterial Blood Base Excess 8.2 H -2.5-2.5 MMOL/L Paramjit Test YES-POS Blood Gas Ventilator Setting NO Blood Gas Inspired Oxygen 2 My Orders Orders - KRISTIN KLEIN MD Cbc With Automated Diff (07/12/23 13:08) Comprehensive Metabolic Panel (07/12/23 13:08) Blood Culture (07/12/23 13:08) Sputum Culture (07/12/23 13:08) Urinalysis (07/12/23 13:08) Urine Culture (07/12/23 13:08) Protime With Inr (07/12/23 13:08) Partial Thromboplastin Time (07/12/23 13:08) Chest 1 View, Ap/Pa Only (07/12/23 13:08) Ed Iv/Invasive Line Start (07/12/23 13:08) Ed Iv/Invasive Line Start (07/12/23 13:08) Vital Signs Adult Sepsis Patie Q15M (07/12/23 13:08) O2 (07/12/23 13:08) Remove Rings In Anticipation O (07/12/23 13:08) Lactic Acid Analyzer (07/12/23 13:08) Influenza A And B By Pcr (07/12/23 13:08) Covid 19 Inhouse Test (07/12/23 13:08) Ns Iv 500 Ml (Ns Iv 500 Ml) (07/12/23 13:15) Arterial Blood Gas (07/12/23 13:08) Thyroid Analyzer (07/12/23 13:31) Arterial Blood Draw - Obtain (07/12/23 13:45) Bnp Satish (07/12/23 14:37) Hs C Reactive Protein (07/12/23 14:38) Ekg Tracing (07/12/23 14:38) Troponin I Satish (07/12/23 14:38) Free T4 (Free Thyroxine) (07/12/23 13:13) Fentanyl Injection (Fentanyl Injection (07/12/23 15:22) Ceftriaxone Iv/Im (Ceftriaxone Iv/Im) (07/12/23 16:06) Furosemide Injection (Furosemide Injec (07/12/23 16:06) Enoxaparin Injection (Enoxaparin Injecti (07/12/23 16:30) Medications Given in ED Current Medications Medications Dose Ordered Sig/Angely Route Start Time Stop Time Status Last Admin Dose Admin Sodium Chloride 500 ml @ 0 mls/hr Q0M ONCE IV 07/12/23 13:15 07/12/23 13:16 DC 07/12/23 13:23 0 MLS/HR Vital Signs/I&O 07/12/23 07/12/23 07/12/23 13:08 13:08 13:10 Temp 36.5 Pulse 76 B/P (MAP) 137/59 (85) Pulse Ox 98 O2 Delivery Nasal Cannula Nasal Cannula Nasal Cannula O2 Flow Rate 3.00 2.00 2.00 Capillary Refill : Blood Pressure Mean: 85 Progress Note : Progress Note 6 person transfer from wheelchair to bed. Seen and evaluated. IV, labs including CBC, CMP, blood cultures and lactic acid ordered. UA and chest x-ray ordered. We will check COVID and influenza. Normal saline 500 mL bolus ordered. Monitor patient. I have added thyroid studies. Differential diagnosis includes sepsis, pneumonia, UTI, thyroid dysfunction, electrolyte abnormality, dehydration 1625: CBC reviewed and does show slight elevated white count and left shift. CMP reviewed and patient has normal electrolytes with normal creatinine and negative lactic acid. I did add troponin, BNP and thyroid studies given her history and chest x-ray did show vascular congestion on my interpretation. Radiology report agreed. Troponin was slightly bumped and BNP is slightly elevated with moderately elevated CRP. UA does show urinary tract infection. Rocephin 1 g IV ordered. I did discuss the case with Dr. Laughlin and she accepts patient for admission, inpatient status for UTI and concerns for mild heart failure and elevated troponin. She requested consult with Dr. Magana with cardiology. I did discuss the case with him and he accepts patient in consult and request Lovenox 1 mg/kg subcu twice daily and this was ordered. I did give patient fentanyl 75 mcg IV for pain and we will continue her hydrocodone while in the hospital. Lasix 40 mg IV ordered for congestive heart failure concerns. 2D cardiac echo ordered for tomorrow for same reason. All of this was discussed with the patient who agrees with plan. Admit, inpatient status. ECG Initial ECG Impression Date: Jul 12, 2023 Initial ECG Impression Time: 14:46 Initial ECG Rate: 75 Initial ECG Rhythm: Normal Sinus Comment Sinus rhythm with first-degree AV block. Right axis deviation. Right bundle branch block. No evidence of ST elevation MT. Interpreted by me. Diagnostic Imaging Diagonstic Imaging: Xray Plain Films/CT/US/NM/MRI: chest Comments [facility], [place] NAME: ARLEEN LIZ [facility] REC#: [id number] PT STATUS: REG ER : 1950 PHYSICIAN: KRISTIN KLEIN MD ADMIT DATE: 07/12/23/ER Draft Date of Exam:07/12/23 CHEST 1 VIEW, AP/PA ONLY INDICATION: Shortness of air. COMPARISON: None. FINDINGS: Single frontal radiographic view of the chest was obtained and shows mild cardiomegaly and pulmonary vascular congestion. There is also mild diffuse coarse prominence of the interstitium. Left basilar effusion and associated patchy left basilar airspace opacities are also noted. There is no large effusion on the right. No pneumothorax is seen on either side. Osseous structures show no gross acute abnormalities. IMPRESSION: 1. Cardiomegaly with sequela of CHF including probable interstitial pulmonary edema. 2. Left basilar effusion with associated left basilar atelectasis. Some component of left basilar pneumonia cannot be entirely excluded. Dictated on workstation # [id number] Dict: 07/12/23 1414 Trans: 07/12/23 1418 [id number] Interpreted by: ERICKSON CODY MD Electronically signed by: Departure Communication (Admissions) Time/Spoke to Admitting Phy: 16:05 Time/Spoke to Consulting Phy: 16:09 Impression Primary Impression: UTI (urinary tract infection) Qualified Codes: N30.00 - Acute cystitis without hematuria Additional Impressions: Acute on chronic heart failure Qualified Codes: I50.9 - Heart failure, unspecified Elevated troponin Abnormal TSH Above knee amputation of left lower extremity Disposition: ADMITTED INPATIENT Condition: Stable Admissions Decision to Admit Reason: Admit from ER (General) Decision to Admit/Date: Jul 12, 2023 Time/Decision to Admit Time: 16:05 Departure-Patient Inst. Referrals: EMANUEL VILLA (PCP/Family) Primary Care Physician KRISTIN KLEIN MD Jul 12, 2023 13:28
[2023-07-12 13:34] LABS: CLARITY,URINE CLEAR; COLOR,URINE YELLOW; GLUCOSE, URINE (UA) NEGATIVE (NEGATIVE); PROTEIN,URINE 1+ (NEGATIVE)
[2023-07-12 13:35] LABS: BACTERIA,URINE LARGE /HPF; BILIRUBIN,URINE NEGATIVE (NEGATIVE); KETONES,URINE NEGATIVE (NEGATIVE); LEUKOCYTE ESTERASE ,URINE 1+ (NEGATIVE); NITRITE,URINE POSITIVE (NEGATIVE)
[2023-07-12 13:37] LABS: ALBUMIN 3.4 GM/DL (3.2-4.5); POTASSIUM 4.7 MMOL/L (3.6-5.0)
[2023-07-12 13:38] LABS: CALCIUM 8.7 MG/DL (8.5-10.1)
[2023-07-12 13:39] LABS: INR 1.2 (0.8-1.4); TOTAL PROTEIN 7.7 GM/DL (6.4-8.2)
[2023-07-12 13:41] LABS: BILIRUBIN,TOTAL 0.3 MG/DL (0.1-1.0)
[2023-07-12 13:43] LABS: CREATININE SERUM 0.79 MG/DL (0.60-1.30)
[2023-07-12 13:50] LABS: ABG BASE EXCESS 8.2 MMOL/L (-2.5-2.5); ABG OXYGEN SATURATION 95 % (94-100); ABG PCO2 52 MMHG (35-45); ABG PH 7.41 (7.37-7.43); ABG PO2 72 MMHG (79-93); ABG TCO2 34.6 MMOL/L (21.0-31.0)
[2023-07-12 13:56] LABS: ALLENS TEST YES-POS; INSPIRED O2 2; PATIENT TEMP 36.5; VENTILATOR NO
--- NOTE | 2023-07-12 14:19 | Diagnostic Imaging Report ---
INDICATION: Shortness of air. COMPARISON: None. FINDINGS: Single frontal radiographic view of the chest was obtained and shows mild cardiomegaly and pulmonary vascular congestion. There is also mild diffuse coarse prominence of the interstitium. Left basilar effusion and associated patchy left basilar airspace opacities are also noted. There is no large effusion on the right. No pneumothorax is seen on either side. Osseous structures show no gross acute abnormalities. IMPRESSION: 1. Cardiomegaly with sequela of CHF including probable interstitial pulmonary edema. 2. Left basilar effusion with associated left basilar atelectasis. Some component of left basilar pneumonia cannot be entirely excluded. Dictated by: Dictated on workstation # [id number]
[2023-07-12 14:44] LABS: TSH (THYROID ANALYZER) 21.44 UIU/ML (0.35-4.94)
[2023-07-12] MEDS ORDERED: fentaNYL INJECTION 100 MCG/2 ML VIAL IVP STA (15:22)
[2023-07-12 15:24] LABS: FREE T4 (FREE THYROXINE) 0.91 NG/DL (0.70-1.48)
[2023-07-12] MEDS ORDERED: FUROSEMIDE INJECTION 40 MG/4 ML VIAL IV STA (16:06)
[2023-07-12] MEDS ORDERED: cefTRIAXone IV/IM 1,000 MG in NS (IVPB) 50 ML 50 ML IV STA (16:06)
[2023-07-12] MEDS ORDERED: ENOXAPARIN 100 MG/1 ML SYRINGE SC ONE (16:30)
[2023-07-12 17:45] VITALS: BP 137/79
[2023-07-12] MEDS ORDERED: CATHETER FLUSH 10 ML SYR IVP PRN (19:00)
[2023-07-12] MEDS: CATHETER FLUSH 10 ML SYR IVP SCH (19:52)
[2023-07-12 20:08] VITALS: BP 124/76
[2023-07-12] MEDS: HYDROcodone/ACETAMINOPHEN 10/325 TABLET PO PRN (22:17)
[2023-07-12 23:06] VITALS: BP 124/70
[2023-07-12 23:09] VITALS: BP 111/70
[2023-07-12] MEDS ORDERED: RT-Ipratropium/Albuterol NEB 3 ML VIAL INH PRN (23:15)
[2023-07-12] MEDS ORDERED: FUROSEMIDE INJECTION 40 MG/4 ML VIAL IVP ONE (23:30)
[2023-07-12] MEDS ORDERED: FUROSEMIDE INJECTION 40 MG/4 ML VIAL ONE (23:35)
[2023-07-13 03:28] VITALS: BP 105/72
[2023-07-13] MEDS: ENOXAPARIN 300 MG/3 ML MULTI-DOSE VIAL SQ SCH ×2 (04:58→16:55)
[2023-07-13] MEDS: CATHETER FLUSH 10 ML SYR IVP SCH ×3 (04:58→20:30)
[2023-07-13] MEDS: HYDROcodone/ACETAMINOPHEN 10/325 TABLET PO PRN ×2 (05:27→13:29)
[2023-07-13 06:02] LABS: BASOPHILS # (AUTO) 0.1 10^3/uL (0.0-0.1); BASOPHILS % (AUTO) 1 % (0-10); EOSINOPHILS # (AUTO) 0.1 10^3/uL (0.0-0.3); EOSINOPHILS % (AUTO) 1 % (0-10); HEMATOCRIT 34 % (35-52); HEMOGLOBIN 10.8 g/dL (11.5-16.0); LYMPHOCYTES # (AUTO) 1.6 10^3/uL (1.0-4.0); LYMPHOCYTES % (AUTO) 17 % (12-44); MEAN CORPUSCULAR HEMOGLOBIN 28 pg (25-34); MEAN CORPUSCULAR HGB CONC 32 g/dL (32-36); MEAN CORPUSCULAR VOLUME 87 fL (80-99); MEAN PLATELET VOLUME 11.3 fL (9.0-12.2); MONOCYTES % (AUTO) 10 % (0-12); NEUTROPHILS # (AUTO) 6.5 10^3/uL (1.8-7.8); NEUTROPHILS % (AUTO) 71 % (42-75); PLATELET COUNT 289 10^3/uL (130-400); WHITE BLOOD COUNT 9.2 10^3/uL (4.3-11.0)
[2023-07-13 06:15] LABS: ALBUMIN 3.2 GM/DL (3.2-4.5); CHLORIDE 98 MMOL/L (98-107); POTASSIUM 3.3 MMOL/L (3.6-5.0); SODIUM 144 MMOL/L (135-145)
[2023-07-13 06:16] LABS: CALCIUM 8.5 MG/DL (8.5-10.1)
[2023-07-13 06:17] LABS: TOTAL PROTEIN 7.5 GM/DL (6.4-8.2); TRIGLYCERIDES 45 MG/DL (<150); VLDL CHOLESTEROL 9 MG/DL (5-40)
[2023-07-13 06:18] LABS: CARBON DIOXIDE 33 MMOL/L (21-32); GLUCOSE 89 MG/DL (70-105)
[2023-07-13 06:19] LABS: BILIRUBIN,TOTAL 0.3 MG/DL (0.1-1.0)
[2023-07-13 06:21] LABS: ALKALINE PHOSPHATASE 131 U/L (40-136); CREATININE SERUM 0.78 MG/DL (0.60-1.30); GFR ESTIMATED 81
[2023-07-13 06:22] LABS: BUN/CREATININE RATIO 65; CHOLESTEROL 104 MG/DL (< 200)
[2023-07-13 06:23] LABS: HDL CHOLESTEROL 43 MG/DL (40-60)
[2023-07-13 06:24] LABS: ALANINE AMINOTRANSFERASE 18 U/L (0-55)
[2023-07-13 07:30] VITALS: BP 139/72
--- NOTE | 2023-07-13 08:34 | Consultation-Cardiology ---
HPI-Cardiology Cardiology Consultation Date of Consultation 07/13/23 Date of Admission Time Seen by Provider: 08:29 Indication: Congestive heart failure HPI 72-year-old lady with questionable history of congestive heart failure. She has history of left AKA. Patient has been having increasing shortness of breath and confusion. Complaining of abdominal pain. She is a resident at [facility]. She denied any nausea or vomiting, no diarrhea. Reported constipation Patient was noted to have elevation in BNP, reportedly had elevated heart rate on telemetry. Home Medications & Allergies Allergies: Coded Allergies: cephalexin (Verified Allergy, Unknown, 07/12/23) codeine (Verified Allergy, Unknown, 07/12/23) latex (Unverified Allergy, Unknown, 12/10/22) morphine (Verified Allergy, Unknown, 07/12/23) Home Medication List Reviewed: Yes OEU-[id number]-Cchquw Hx Patient Social History Employed/Student: retired Smoking Status: Never a Smoker Alcohol Use?: No Past Medical History Discussed below Family Medical History Significant Family History: No Pertinent Family Hx Review of Systems-General Review of Systems Constitutional: see HPI; No chills, No fever; malaise EENTM: eye pain; No nose congestion, No throat pain Respiratory: No cough; short of breath Cardiovascular: see HPI; No chest pain; edema Gastrointestinal: abdominal pain, constipation; No nausea, No vomiting Genitourinary: see HPI Musculoskeletal: see HPI Skin: No change in color, No lesions Psychiatric/Neurological: See HPI, Weakness Reviewed Test Results Reviewed Test Results Lab Laboratory Tests Test 07/12/23 13:13 07/12/23 13:45 07/13/23 05:53 Range/Units White Blood Count 13.7 H 9.2 4.3-11.0 10^3/uL Red Blood Count 3.95 3.85 3.80-5.11 10^6/uL Hemoglobin 10.9 L 10.8 L 11.5-16.0 g/dL Hematocrit 35 34 L 35-52 % Mean Corpuscular Volume 89 87 80-99 fL Mean Corpuscular Hemoglobin 28 28 25-34 pg Mean Corpuscular Hemoglobin Concent 31 L 32 32-36 g/dL Red Cell Distribution Width 16.0 H 15.9 H 10.0-14.5 % Platelet Count 305 289 130-400 10^3/uL Mean Platelet Volume 11.3 11.3 9.0-12.2 fL Immature Granulocyte % (Auto) 0 0 % Neutrophils (%) (Auto) 83 H 71 42-75 % Lymphocytes (%) (Auto) 8 L 17 12-44 % Monocytes (%) (Auto) 8 10 0-12 % Eosinophils (%) (Auto) 0 1 0-10 % Basophils (%) (Auto) 0 1 0-10 % Neutrophils # (Auto) 11.4 H 6.5 1.8-7.8 10^3/uL Lymphocytes # (Auto) 1.0 1.6 1.0-4.0 10^3/uL Monocytes # (Auto) 1.1 H 1.0 0.0-1.0 10^3/uL Eosinophils # (Auto) 0.1 0.1 0.0-0.3 10^3/uL Basophils # (Auto) 0.1 0.1 0.0-0.1 10^3/uL Immature Granulocyte # (Auto) 0.1 0.0 0.0-0.1 10^3/uL Prothrombin Time 15.0 H 12.2-14.7 SEC INR Comment 1.2 0.8-1.4 Activated Partial Thromboplast Time 45 H 24-35 SEC Urine Color YELLOW Urine Clarity CLEAR Urine pH 6.0 5-9 Urine Specific [place] 1.010 L 1.016-1.022 Urine Protein 1+ H NEGATIVE Urine Glucose (UA) NEGATIVE NEGATIVE Urine Ketones NEGATIVE NEGATIVE Urine Nitrite POSITIVE H NEGATIVE Urine Bilirubin NEGATIVE NEGATIVE Urine Urobilinogen 0.2 < = 1.0 MG/DL Urine Leukocyte Esterase 1+ H NEGATIVE Urine RBC (Auto) TRACE H NEGATIVE Urine RBC 2-5 H /HPF Urine WBC 5-10 H /HPF Urine Crystals NONE /LPF Urine Bacteria LARGE H /HPF Urine Casts NONE /LPF Urine Mucus NEGATIVE /LPF Urine Culture Indicated YES Sodium Level 135 144 135-145 MMOL/L Potassium Level 4.7 3.3 L 3.6-5.0 MMOL/L Chloride Level 97 L 98 98-107 MMOL/L Carbon Dioxide Level 30 33 H 21-32 MMOL/L Anion Gap 8 13 5-14 MMOL/L Blood Urea Nitrogen 66 H 51 H 7-18 MG/DL Creatinine 0.79 0.78 0.60-1.30 MG/DL Estimat Glomerular Filtration Rate 79 81 BUN/Creatinine Ratio 84 65 Glucose Level 117 H 89 70-105 MG/DL Lactic Acid Level 0.66 0.50-2.00 MMOL/L Calcium Level 8.7 8.5 8.5-10.1 MG/DL Corrected Calcium 9.2 9.1 8.5-10.1 MG/DL Total Bilirubin 0.3 0.3 0.1-1.0 MG/DL Aspartate Amino Transf (AST/SGOT) 22 22 5-34 U/L Alanine Aminotransferase (ALT/SGPT) 20 18 0-55 U/L Alkaline Phosphatase 141 H 131 40-136 U/L Troponin I 0.035 H < 0.028 <0.028 NG/ML C-Reactive Protein High Sensitivity 14.54 H 0.00-0.50 MG/DL B-Type Natriuretic Peptide 270.6 H <100.0 PG/ML Total Protein 7.7 7.5 6.4-8.2 GM/DL Albumin 3.4 3.2 3.2-4.5 GM/DL Free Thyroxine 0.91 0.70-1.48 NG/DL TSH [place] Testing 21.44 H 0.35-4.94 UIU/ML Influenza Type A (RT-PCR) Not Detected Not Detecte Influenza Type B (RT-PCR) Not Detected Not Detecte SARS-CoV-2 RNA (RT-PCR) Not Detected Not Detecte Blood Gas Puncture Site RIGHT RADIAL Blood Gas Patient Temperature 36.5 Arterial Blood pH 7.41 7.37-7.43 Arterial Blood Partial Pressure CO2 52 H 35-45 MMHG Arterial Blood Partial Pressure O2 72 L 79-93 MMHG Arterial Blood HCO3 33 H 23-27 MMOL/L Arterial Blood Total CO2 34.6 H 21.0-31.0 MMOL/L Arterial Blood Oxygen Saturation 95 94-100 % Arterial Blood Base Excess 8.2 H -2.5-2.5 MMOL/L Paramjit Test YES-POS Blood Gas Ventilator Setting NO Blood Gas Inspired Oxygen 2 Triglycerides Level 45 <150 MG/DL Cholesterol Level 104 < 200 MG/DL LDL Cholesterol Direct 56 1-129 MG/DL VLDL Cholesterol 9 5-40 MG/DL HDL Cholesterol 43 40-60 MG/DL Physical Exam Physical Exam Vital Signs Vital Signs - First Documented 07/12/23 17:45 Resp 21 Capillary Refill : Height, Weight, BMI Height: '" Weight: lbs. oz. kg; 36.26 BMI Method: General Appearance: No Apparent Distress, Obese, Other (Seems a bit confused) HEENT: PERRL/EOMI, Pharynx Normal Neck: Full Range of Motion, Non Tender, Supple Respiratory: Lungs Clear, Normal Breath Sounds Cardiovascular: Regular Rate, Rhythm Gastrointestinal: Non Tender, Soft Back: Normal Inspection, No CVA Tenderness, No Vertebral Tenderness Extremity: Non Tender, Pedal Edema (Right), Other (Left AKA) Neurologic/Psychiatric: Alert, Oriented x3 A/P-Cardiology Admission Diagnosis Congestive heart failure Abdominal pain Constipation Assessment/Plan Congestive heart failure, Decompensated, shortness of breath with elevation in BNP Started on diuretics, appears to be responding well Still having dyspnea, I will evaluate 2D echo Atrial fibrillation with left bundle branch block I will evaluate EKG Starting Lovenox Abdominal pain, constipation, managed by medical team Questionable history of coronary artery disease. Initial troponin was minimally elevated, repeat troponin was normal. We will evaluate twelve-lead EKG Hypothyroidism, elevated TSH Defer management to medical team History of left AKA ABBIE BERGER MD Jul 13, 2023 08:34
[2023-07-13] MEDS: ASPIRIN 81 MG CHEWABLE TABLET PO SCH (08:54)
[2023-07-13] MEDS: FUROSEMIDE INJECTION 40 MG/4 ML VIAL IVP SCH ×2 (08:54→16:55)
[2023-07-13] MEDS ORDERED: VANCOMYCIN INJECTION 0.1 MG in NS (IVPB) 250 ML 250 ML IV SCH (11:00)
[2023-07-13] MEDS ORDERED: PIPERACILLIN/Tazobactam 4.5 GM in NS (IVPB) 100 ML 100 ML IV ONE (11:30)
[2023-07-13 12:00] VITALS: BP 109/57
[2023-07-13] MEDS ORDERED: VANCOMYCIN 2000 MG/NS 500 ML IVPB IV ONE ×2 (12:00)
--- NOTE | 2023-07-13 12:39 | History & Physical ---
GEREMIASLEIGH 07/13/23 1239: History of Present Illness History of Present Illness Reason for visit/HPI 72-year old female with history of left AKA was being seen for wound care, became confused and SOB, leading to presentation to ED on 07/12. She reports that over the weekend she has been feeling more confused and has had increasing SOB, has been needing supplemental oxygen, does not use at baseline. CXR showed vascular congestion and a left basilar effusion with atelectasis. Initial troponin slightly elevated at 0.035, repeal <0.028. BNP was elevated at 270.6 and CRP was elevated at 14.54. EKG showed that she was in a-fib with RBBB and right axis deviation. Urine culture was obtained which showed gram negative rods, probable for enterococcus. She was started on Lasix, lovenox and rocephin while in the ED. Patient is seen laying awake in bed. She reports that she is still having some SOB on 2L O2 via [place] Has maintained good O2 sats, and shows no increased work of breathing. She also reports that she has been having some intermittent epigastric pain for the past week, slightly tender on palpation. She has some edema in her right lower extremity, patient is unsure if it has changed since admission, or if changed from her baseline. Patient has no other complaints. Date of Admission Jul 12, 2023 at 16:54 Date Seen by a Provider: Jul 13, 2023 Time Seen by a Provider: 10:00 I consulted on this patient on 07/13/23 12:27 Attending Physician Di Pagan Admitting Physician Admitting Physician: Sherly Kaufman MD Attending Physician: Sherly Kaufman MD Consult Allergies and Home Medications Allergies Coded Allergies: cephalexin (Verified Allergy, Unknown, 07/12/23) codeine (Verified Allergy, Unknown, 07/12/23) latex (Unverified Allergy, Unknown, 12/10/22) morphine (Verified Allergy, Unknown, 07/12/23) Patient Home Medication List Acetaminophen (Tylenol) 325 Mg Tablet, 650 MG Q6H PRN for PAIN-MILD (1-4), (Reported) Entered as Reported by: MACY RODRIGUEZ on 07/13/23 6387 Last Action: Reviewed Albuterol Sulfate (Albuterol Sulfate) 2.5 Mg/3 Ml (0.083 %) Vial.neb, 3 ML NEB Q6H PRN for SHORTNESS OF BREATH, (Reported) Entered as Reported by: MACY RODRIGUEZ on 07/13/231515 Last Action: Reviewed Amiodarone HCl (Amiodarone HCl) 200 Mg Tablet, 200 MG DAILY, (Reported) Entered as Reported by: MACY RODRIGUEZ on 07/13/231515 Last Action: Continued Aripiprazole (Aripiprazole) 10 Mg Tablet, 10 MG DAILY, (Reported) Entered as Reported by: MACY RODRIGUEZ on 07/13/231515 Last Action: Continued Ascorbic Acid (Vitamin C) 500 Mg Tablet, 500 MG PO BID, (Reported) Entered as Reported by: MACY RODRIGUEZ on 07/13/231515 Last Action: Reviewed Betamethasone Dipropionate (Betamethasone Dipropionate) 0.05 % Lotion, 1 APPLIC TOP UD PRN for ECZEMA, (Reported) Entered as Reported by: MACY RODRIGUEZ on 07/13/231515 Last Action: Reviewed Cholecalciferol (Vitamin D3) (Vitamin D3) 25 Mcg (1000 Unit) Tab.chew, 25 MCG PO DAILY, (Reported) Entered as Reported by: MACY RODRIGUEZ on 07/13/231515 Last Action: Reviewed Fluoxetine HCl (Fluoxetine HCl) 20 Mg Tablet, 20 MG DAILY, (Reported) Entered as Reported by: MACY RODRIGUEZ on 07/13/231515 Last Action: Continued Fluticasone Propionate (Fluticasone Propionate) 50 Mcg/Actuation [place].susp, 1 SPRAY NSEACH DAILY, (Reported) Entered as Reported by: MACY RODRIGUEZ on 07/13/231515 Last Action: Reviewed Furosemide (Furosemide) 40 Mg Tablet, 40 MG DAILY, (Reported) Entered as Reported by: MACY RODRIGUEZ on 07/13/231515 Last Action: Reviewed Hydrocodone/Acetaminophen (Hydrocodone-Acetamin 10-325 mg) 10 Mg-325 Mg Tablet, 1 EA QID, (Reported) Entered as Reported by: MACY RODRIGUEZ on 07/13/231515 Last Action: Reviewed Hydroxychloroquine Sulfate (Hydroxychloroquine Sulfate) 200 Mg Tablet, 200 MG Q12H, (Reported) Entered as Reported by: MACY RODRIGUEZ on 07/13/231515 Last Action: Continued L. Acidophilus/Bulgaricus (Floranex Tablet) 1 Million Cell Tablet, 2 EACH TID, (Reported) Entered as Reported by: MACY RODRIGUEZ on 07/13/231515 Last Action: Reviewed Levothyroxine Sodium (Levothyroxine Sodium) 112 Mcg Tablet, 112 MCG DAILY, (Reported) Entered as Reported by: MACY RODRIGUEZ on 07/13/231515 Last Action: Continued Loperamide HCl (Loperamide) 2 Mg Capsule, 2 MG Q12H, (Reported) Entered as Reported by: MACY RODRIGUEZ on 07/13/231515 Last Action: Reviewed Loperamide HCl (Loperamide) 2 Mg Tablet, 2 MG DAILY PRN for LOOSE STOOLS, (Reported) Entered as Reported by: MACY RODRIGUEZ on 07/13/231515 Last Action: Reviewed Loratadine (Claritin) 5 Mg Tab.rapdis, 10 MG DAILY, (Reported) Entered as Reported by: MACY RODRIGUEZ on 07/13/231515 Last Action: Reviewed Lorazepam (Lorazepam) 2 Mg/Ml Oral.conc, 0.125 ML PEG Q8H, (Reported) Entered as Reported by: MACY RODRIGUEZ on 07/13/231515 Last Action: Reviewed Melatonin (Melatonin) 3 Mg Tablet, 3 MG HS PRN for SLEEP, (Reported) Entered as Reported by: MACY RODRIGUEZ on 07/13/231515 Last Action: Reviewed Multivitamin with Minerals (One Daily Plus Minerals) 1 Each Tablet, 1 EACH DAILY, (Reported) Entered as Reported by: MACY RODRIGUEZ on 07/13/231515 Last Action: Reviewed Nystatin (Nystatin) 100,000 Unit/Gram Powder, 1 APPLIC TOP Q12H, (Reported) Entered as Reported by: MACY RODRIGUEZ on 07/13/231515 Last Action: Reviewed Ondansetron (Ondansetron Odt) 4 Mg Tab.rapdis, 4 MG Q8H PRN for NAUSEA/VOMITING- 1ST LINE, (Reported) Entered as Reported by: MACY RODRIGUEZ on 07/13/231515 Last Action: Reviewed Pantoprazole Sodium (Pantoprazole Sodium) 40 Mg Granpkt.dr, 40 MG DAILY, (Reported) Entered as Reported by: MACY RODRIGUEZ on 07/13/231515 Last Action: Converted Pramipexole Di-HCl (Pramipexole Dihydrochloride) 0.125 Mg Tablet, 0.125 MG HS, (Reported) Entered as Reported by: MACY RODRIGUEZ on 07/13/231515 Last Action: Reviewed Pregabalin (Pregabalin) 150 Mg Capsule, 150 MG TID, (Reported) Entered as Reported by: MACY RODRIGUEZ on 07/13/231515 Last Action: Reviewed Pseudoephedrine HCl (Children's Sudafed) 15 Mg/5 Ml Liquid, 20 ML Q8H PRN for SINUS PAIN/PRESSURE, (Reported) Entered as Reported by: MACY RODRIGUEZ on 07/13/231515 Last Action: Reviewed Psyllium Husk (with Sugar) (Metamucil Free Powder) 3 Gram/7 Gram Powder, 7 GM BID, (Reported) Entered as Reported by: MACY RODRIGUEZ on 07/13/231515 Last Action: Reviewed Quetiapine Fumarate (Quetiapine Fumarate) 25 Mg Tablet, 25 MG PO HS, (Reported) Entered as Reported by: MACY RODRIGUEZ on 07/13/231515 Last Action: Continued Simethicone (Simethicone) 125 Mg Capsule, 125 MG QID PRN for GAS, (Reported) Entered as Reported by: MACY RODRIGUEZ on 07/13/231515 Last Action: Reviewed [Potassium Chloride] 20MEQ/15ML SOLN, 15 ML BID, (Reported) Entered as Reported by: MACY RODRIGUEZ on 07/13/231515 Last Action: Reviewed Discontinued Medications Ciprofloxacin HCl (Ciprofloxacin HCl) 500 Mg Tablet, 500 MG PO BID Discontinued Reason: No Longer Taking Prescribed by: PENELOPE HEAD on 03/21/231808 Last Action: Discontinued Past [id number]-Qaqkdo Hx Patient Social History Employed/Student: retired Tobacco Use?: No Smoking Status: Never a Smoker Smokeless Tobacco Frequency: Never a User Use of E-Cig and/or Vaping dev: No Substance use?: No Alcohol Use?: No Pt feels they are or have been: No Immunizations Up To Date Tetanus Booster (TDap): Unknown Current Status status: No status: No Advance Directives: No Communicates: Verbally Primary Language: Cuban Preferred Spoken Language: Cuban Is interpretation needed?: No Sensory deficits: Vision impairment Past Medical History Surgeries: Gallbladder, Hysterectomy, Orthopedic Chronic Bronchitis Chronic Edema/Swelling, Coronary Artery Disease Gastroesophageal Reflux Amputee Hypothyroidsim Family Medical History No Pertinent Family Hx Review of Systems Constitutional: No chills, No fever EENTM: No hearing loss, No blurred vision Respiratory: No cough; short of breath, wheezing (slight, left lower lobe) Cardiovascular: No chest pain; edema (mild edema in R lower extremity); No palpitations Gastrointestinal: abdominal pain (Mild epigastric pain, slight tenderness on palpation); No nausea, No vomiting Genitourinary: No dysuria, No hematuria Musculoskeletal: No back pain, No neck pain Skin: No change in color, No change in hair/nails Psychiatric/Neurological: Denies Numbness, Denies Weakness; Other (slightly confused) Physical Exam Vital Signs Vital Signs - First Documented 07/12/23 17:45 Resp 21 Capillary Refill : Height, Weight, BMI Height: '" Weight: lbs. oz. kg; 36.26 BMI Method: General Appearance: No Apparent Distress, WD/WN HEENT: PERRL/EOMI Neck: Non Tender, Supple Respiratory: Chest Non Tender, Normal Breath Sounds, Wheezing (slight wheezing over left lower lobe) Cardiovascular: No Edema, No Gallop, Normal Peripheral Pulses Gastrointestinal: Non Tender, Soft Rectal: Deferred Back: No Vertebral Tenderness Extremity: Normal Capillary Refill, No Calf Tenderness, Pedal Edema (mild edema in RLE) Neurologic/Psychiatric: Alert, Other (Slight confusion) Skin: Normal Color, Warm/Dry Lymphatic: No Adenopathy (cervical) Assessment/Plan Assessment and Plan Acute CHF exacerbation: Cardiology consulted, appreciate recs. Receiving lasix 40mg BID. Monitor I's and O's, -3100 yesterday, -1900 so far today. Echo ordered. SOB- on 2L O2 via [place] maintaining good O2 sats UTI- Received rocephin in ED, currently on Vancomycin, zosyn G-tube dependent: Patient is unsure on details of her feeds, reaching out to [facility] for more information Hx of left AKA, managed by wound care clinic Admission Diagnosis Admission Status: Observation SHERLY KAUFMAN MD 07/13/23 1741: Allergies and Home Medications Allergies Coded Allergies: cephalexin (Verified Allergy, Unknown, 07/12/23) codeine (Verified Allergy, Unknown, 07/12/23) latex (Unverified Allergy, Unknown, 12/10/22) morphine (Verified Allergy, Unknown, 07/12/23) Patient Home Medication List Home Medication List Reviewed: Yes Acetaminophen (Tylenol) 325 Mg Tablet, 650 MG Q6H PRN for PAIN-MILD (1-4), (Reported) Entered as Reported by: MACY RODRIGUEZ on 07/13/231515 Last Action: Reviewed Albuterol Sulfate (Albuterol Sulfate) 2.5 Mg/3 Ml (0.083 %) Vial.neb, 3 ML NEB Q6H PRN for SHORTNESS OF BREATH, (Reported) Entered as Reported by: MACY RODRIGUEZ on 07/13/231515 Last Action: Reviewed Amiodarone HCl (Amiodarone HCl) 200 Mg Tablet, 200 MG DAILY, (Reported) Entered as Reported by: MACY RODRIGUEZ on 07/13/231515 Last Action: Continued Aripiprazole (Aripiprazole) 10 Mg Tablet, 10 MG DAILY, (Reported) Entered as Reported by: MACY RODRIGUEZ on 07/13/231515 Last Action: Continued Ascorbic Acid (Vitamin C) 500 Mg Tablet, 500 MG PO BID, (Reported) Entered as Reported by: MACY RODRIGUEZ on 07/13/231515 Last Action: Reviewed Betamethasone Dipropionate (Betamethasone Dipropionate) 0.05 % Lotion, 1 APPLIC TOP UD PRN for ECZEMA, (Reported) Entered as Reported by: MACY RODRIGUEZ on 07/13/231515 Last Action: Reviewed Cholecalciferol (Vitamin D3) (Vitamin D3) 25 Mcg (1000 Unit) Tab.chew, 25 MCG PO DAILY, (Reported) Entered as Reported by: MACY RODRIGUEZ on 07/13/231515 Last Action: Reviewed Fluoxetine HCl (Fluoxetine HCl) 20 Mg Tablet, 20 MG DAILY, (Reported) Entered as Reported by: MACY RODRIGUEZ on 07/13/231515 Last Action: Continued Fluticasone Propionate (Fluticasone Propionate) 50 Mcg/Actuation [place].susp, 1 SPRAY NSEACH DAILY, (Reported) Entered as Reported by: MACY RODRIGUEZ on 07/13/231515 Last Action: Reviewed Furosemide (Furosemide) 40 Mg Tablet, 40 MG DAILY, (Reported) Entered as Reported by: MACY RODRIGUEZ on 07/13/231515 Last Action: Reviewed Hydrocodone/Acetaminophen (Hydrocodone-Acetamin 10-325 mg) 10 Mg-325 Mg Tablet, 1 EA QID, (Reported) Entered as Reported by: MACY RODRIGUEZ on 07/13/231515 Last Action: Reviewed Hydroxychloroquine Sulfate (Hydroxychloroquine Sulfate) 200 Mg Tablet, 200 MG Q12H, (Reported) Entered as Reported by: MACY RODRIGUEZ on 07/13/231515 Last Action: Continued L. Acidophilus/Bulgaricus (Floranex Tablet) 1 Million Cell Tablet, 2 EACH TID, (Reported) Entered as Reported by: MACY RODRIGUEZ on 07/13/231515 Last Action: Reviewed Levothyroxine Sodium (Levothyroxine Sodium) 112 Mcg Tablet, 112 MCG DAILY, (Reported) Entered as Reported by: MACY RODRIGUEZ on 07/13/231515 Last Action: Continued Loperamide HCl (Loperamide) 2 Mg Capsule, 2 MG Q12H, (Reported) Entered as Reported by: MACY RODRIGUEZ on 07/13/231515 Last Action: Reviewed Loperamide HCl (Loperamide) 2 Mg Tablet, 2 MG DAILY PRN for LOOSE STOOLS, (Reported) Entered as Reported by: MACY RODRIGUEZ on 07/13/231515 Last Action: Reviewed Loratadine (Claritin) 5 Mg Tab.rapdis, 10 MG DAILY, (Reported) Entered as Reported by: MACY RODRIGUEZ on 07/13/231515 Last Action: Reviewed Lorazepam (Lorazepam) 2 Mg/Ml Oral.conc, 0.125 ML PEG Q8H, (Reported) Entered as Reported by: MACY RODRIGUEZ on 07/13/231515 Last Action: Reviewed Melatonin (Melatonin) 3 Mg Tablet, 3 MG HS PRN for SLEEP, (Reported) Entered as Reported by: MACY RODRIGUEZ on 07/13/231515 Last Action: Reviewed Multivitamin with Minerals (One Daily Plus Minerals) 1 Each Tablet, 1 EACH DAILY, (Reported) Entered as Reported by: MACY RODRIGUEZ on 07/13/231515 Last Action: Reviewed Nystatin (Nystatin) 100,000 Unit/Gram Powder, 1 APPLIC TOP Q12H, (Reported) Entered as Reported by: MACY RODRIGUEZ on 07/13/231515 Last Action: Reviewed Ondansetron (Ondansetron Odt) 4 Mg Tab.rapdis, 4 MG Q8H PRN for NAUSEA/VOMITING- 1ST LINE, (Reported) Entered as Reported by: MACY RODRIGUEZ on 07/13/231515 Last Action: Reviewed Pantoprazole Sodium (Pantoprazole Sodium) 40 Mg Granpkt.dr, 40 MG DAILY, (Reported) Entered as Reported by: MACY RODRIGUEZ on 07/13/231515 Last Action: Converted Pramipexole Di-HCl (Pramipexole Dihydrochloride) 0.125 Mg Tablet, 0.125 MG HS, (Reported) Entered as Reported by: MACY RODRIGUEZ on 07/13/231515 Last Action: Reviewed Pregabalin (Pregabalin) 150 Mg Capsule, 150 MG TID, (Reported) Entered as Reported by: MACY RODRIGUEZ on 07/13/231515 Last Action: Reviewed Pseudoephedrine HCl (Children's Sudafed) 15 Mg/5 Ml Liquid, 20 ML Q8H PRN for SINUS PAIN/PRESSURE, (Reported) Entered as Reported by: MACY RODRIGUEZ on 07/13/231515 Last Action: Reviewed Psyllium Husk (with Sugar) (Metamucil Free Powder) 3 Gram/7 Gram Powder, 7 GM BID, (Reported) Entered as Reported by: MACY RODRIGUEZ on 07/13/231515 Last Action: Reviewed Quetiapine Fumarate (Quetiapine Fumarate) 25 Mg Tablet, 25 MG PO HS, (Reported) Entered as Reported by: MACY RODRIGUEZ on 07/13/231515 Last Action: Continued Simethicone (Simethicone) 125 Mg Capsule, 125 MG QID PRN for GAS, (Reported) Entered as Reported by: MACY RODRIGUEZ on 07/13/231515 Last Action: Reviewed [Potassium Chloride] 20MEQ/15ML SOLN, 15 ML BID, (Reported) Entered as Reported by: MACY RODRIGUEZ on 8/29/23 1516 Last Action: Reviewed Discontinued Medications Ciprofloxacin HCl (Ciprofloxacin HCl) 500 Mg Tablet, 500 MG PO BID Discontinued Reason: No Longer Taking Prescribed by: PENELOPE HEAD on 03/21/23 1809 Last Action: Discontinued Past [id number]-[id number] Hx Patient Social History Living Status: Lives in [facility] Review of Systems Constitutional: No chills, No fever; malaise EENTM: no symptoms reported Respiratory: No cough; dyspnea on exertion; No orthopnea; short of breath Cardiovascular: no symptoms reported; No chest pain; edema (mild edema in R lower extremity); No palpitations Gastrointestinal: abdominal pain (Mild epigastric pain, slight tenderness on palpation), loss of appetite; No nausea, No vomiting Genitourinary: No dysuria; frequency; No hematuria Musculoskeletal: no symptoms reported; No back pain Skin: no symptoms reported Psychiatric/Neurological: No Symptoms Reported Physical Exam General Appearance: No Apparent Distress, WD/WN, Obese HEENT: PERRL/EOMI Neck: Non Tender, Supple Respiratory: Lungs Clear, Normal Breath Sounds, No Accessory Muscle Use, No Respiratory Distress Cardiovascular: Regular Rate, Rhythm, No Murmur, Normal Peripheral Pulses Gastrointestinal: Normal Bowel Sounds, Non Tender, Soft; No Distended, No Guarding Back: No CVA Tenderness, No Vertebral Tenderness Extremity: Normal Capillary Refill, No Calf Tenderness, Other (1+ pitting edema RLE (improving) LAKA) Neurologic/Psychiatric: Alert, Oriented x3 Skin: Normal Color, Warm/Dry Lymphatic: No Adenopathy (cervical) Assessment/Plan Admission Diagnosis Admission Status: Inpatient Order (span 2 midnights) Reason for Inpatient Admission: multiple comorbidites and high risk for decompensation Supervisory-Addendum Brief Verification & Attestation Participated in pt care: history, physical Personally performed: exam, history Care discussed with: Medical Student Procedures: n/a Verification and Attestation of Medical Student E/M Service A medical student performed and documented this service in my presence. I reviewed and verified all information documented by the medical student and made modifications to such information, when appropriate. I personally performed the physical exam and medical decision making. Sherly Kaufman, Jul 13, 2023,17:51 Agree with above, in addition Plan: Acute CHF Acute Respiratory Failure with hypoxia Altered mental Status: resolved -Unable to evaluate Diastolic due to body hiabitus, IV lasix, Cardiology consult, appreciate recommendations, titrate oxygen as tolerated Type II KS Atrial Fibrillation rate controlled - Troponin trending down, likely 2/2 to stress, no chest pain UTI - H/o multi drug resistance, IV antibiotics adjusted Hypothyroidism - Levothyroxine needs adjusted Normocytic anemia - At baseline, no acute bleeding Hypokalemia - Replace and repeat BMP in AM L AKA G-tube dependent LEIGH ARCHULETA Jul 13, 2023 12:39 SHERLY KAUFMAN MD Jul 13, 2023 17:41
[2023-07-13] MEDS: RT-Ipratropium/Albuterol NEB 3 ML VIAL INH SCH ×2 (13:56→20:57)
[2023-07-13] MEDS: ONDANSETRON INJECTION 4 MG/2 ML (SDV) IV PRN (14:50)
[2023-07-13] MEDS ORDERED: ACID1TAB (15:16)
[2023-07-13] MEDS ORDERED: FLUT16SP22 NSEACH (15:16)
[2023-07-13] MEDS ORDERED: FURO40TA4 (15:16)
[2023-07-13] MEDS ORDERED: FLUO20TA28 (15:16)
[2023-07-13] MEDS ORDERED: SIME125C78 (15:16)
[2023-07-13] MEDS ORDERED: ONDA4TAB11 (15:16)
[2023-07-13] MEDS ORDERED: [UNRECOGNIZED DRUG - CODE] (15:16)
[2023-07-13] MEDS ORDERED: ARIP10TA55 (15:16)
[2023-07-13] MEDS ORDERED: PSEU15LI (15:16)
[2023-07-13] MEDS ORDERED: NYST15PO4 TOP (15:16)
[2023-07-13] MEDS ORDERED: LOPE2TAB34 (15:16)
[2023-07-13] MEDS ORDERED: BETA60LO5 TOP (15:16)
[2023-07-13] MEDS ORDERED: QUET25TA35 PO (15:16)
[2023-07-13] MEDS ORDERED: LEVO112T55 (15:16)
[2023-07-13] MEDS ORDERED: PANT40GR (15:16)
[2023-07-13] MEDS ORDERED: ACET325T38 (15:16)
[2023-07-13] MEDS ORDERED: HYDR200T71 (15:16)
[2023-07-13] MEDS ORDERED: ALBU2.5V4 NEB (15:16)
[2023-07-13] MEDS ORDERED: MELA3TAB39 (15:16)
[2023-07-13] MEDS ORDERED: LORA5TAB9 (15:16)
[2023-07-13] MEDS ORDERED: LORAZ30SOL PEG (15:16)
[2023-07-13] MEDS ORDERED: PRAM0.128 (15:16)
[2023-07-13] MEDS ORDERED: ASCO500T17 PO (15:16)
[2023-07-13] MEDS ORDERED: MULT-422 (15:16)
[2023-07-13] MEDS ORDERED: HYDR-3820 (15:16)
[2023-07-13] MEDS ORDERED: LOPE2CAP (15:16)
[2023-07-13] MEDS ORDERED: POTASSIUM CHLORIDE (15:16)
[2023-07-13] MEDS ORDERED: CHOL10008 PO (15:16)
[2023-07-13] MEDS ORDERED: AMIO200T65 (15:16)
[2023-07-13] MEDS ORDERED: PREG150C46 (15:16)
[2023-07-13 15:30] VITALS: BP 120/57
[2023-07-13] MEDS ORDERED: cefTRIAXone 1 GM/NS 50 ML IVPB IV SCH ×2 (16:00)
[2023-07-13] MEDS: PIPERACILLIN/Tazobactam 4.5 GM in NS (IVPB) 100 ML 100 ML IV SCH (16:56)
[2023-07-13] MEDS: HYDROXYCHLOROQUINE 200 MG TABLET GT SCH (18:18)
[2023-07-13] MEDS: QUEtiapine IMMEDIATE RELEASE 25 MG TABLET PO SCH (20:30)
[2023-07-13 20:37] VITALS: BP 117/58
[2023-07-13 23:13] VITALS: BP 110/71
[2023-07-14] MEDS: HYDROcodone/ACETAMINOPHEN 10/325 TABLET PO PRN ×2 (00:04→08:48)
[2023-07-14] MEDS: PIPERACILLIN/Tazobactam 4.5 GM in NS (IVPB) 100 ML 100 ML IV SCH ×3 (00:04→19:51)
[2023-07-14] MEDS: ONDANSETRON INJECTION 4 MG/2 ML (SDV) IV PRN ×4 (01:53→20:37)
[2023-07-14 03:19] VITALS: BP 99/64
[2023-07-14 05:52] LABS: BASOPHILS % (AUTO) 1 % (0-10); EOSINOPHILS # (AUTO) 0.2 10^3/uL (0.0-0.3); EOSINOPHILS % (AUTO) 3 % (0-10); HEMATOCRIT 34 % (35-52); HEMOGLOBIN 10.4 g/dL (11.5-16.0); LYMPHOCYTES # (AUTO) 1.1 10^3/uL (1.0-4.0); LYMPHOCYTES % (AUTO) 15 % (12-44); MEAN CORPUSCULAR HEMOGLOBIN 27 pg (25-34); MEAN CORPUSCULAR HGB CONC 31 g/dL (32-36); MEAN CORPUSCULAR VOLUME 87 fL (80-99); MEAN PLATELET VOLUME 10.8 fL (9.0-12.2); MONOCYTES # (AUTO) 0.9 10^3/uL (0.0-1.0); MONOCYTES % (AUTO) 12 % (0-12); NEUTROPHILS # (AUTO) 5.1 10^3/uL (1.8-7.8); NEUTROPHILS % (AUTO) 69 % (42-75); PLATELET COUNT 245 10^3/uL (130-400); WHITE BLOOD COUNT 7.4 10^3/uL (4.3-11.0)
[2023-07-14] MEDS: HYDROXYCHLOROQUINE 200 MG TABLET GT SCH ×2 (05:53→18:09)
[2023-07-14] MEDS: ENOXAPARIN 300 MG/3 ML MULTI-DOSE VIAL SQ SCH ×2 (05:54→17:17)
[2023-07-14] MEDS: FUROSEMIDE INJECTION 40 MG/4 ML VIAL IVP SCH ×2 (05:54→17:13)
[2023-07-14] MEDS: LEVOTHYROXINE 112 MCG TABLET GT SCH (05:54)
[2023-07-14] MEDS: VANCOMYCIN 1250 MG/NS 250 ML PREMIX IV SCH ×2 (05:54→18:08)
[2023-07-14] MEDS: PANTOPRAZOLE 2 MG/ML LIQUID 200 ML (PROTONIX) GT SCH ×3 (05:55)
[2023-07-14] MEDS: CATHETER FLUSH 10 ML SYR IVP SCH ×3 (05:55→19:51)
[2023-07-14 06:13] LABS: BILIRUBIN,TOTAL 0.3 MG/DL (0.1-1.0); CALCIUM 8.2 MG/DL (8.5-10.1); CREATININE SERUM 0.85 MG/DL (0.60-1.30); TOTAL PROTEIN 6.7 GM/DL (6.4-8.2)
[2023-07-14 06:15] LABS: POTASSIUM 2.5 MMOL/L (3.6-5.0)
[2023-07-14] MEDS ORDERED: POTASSIUM CHLORIDE 20 MEQ TABLET PO ONE (07:00)
[2023-07-14 07:46] VITALS: BP 129/71
[2023-07-14] MEDS: POTASSIUM CL 10MEQ/50ML IVPB 50 ML IV SCH ×5 (07:55→13:11)
[2023-07-14] MEDS: AMIODARONE 200 MG TABLET GT SCH (08:48)
[2023-07-14] MEDS: ASPIRIN 81 MG CHEWABLE TABLET PO SCH (08:48)
[2023-07-14] MEDS: ARIPiprazole 10 MG TABLET GT SCH (08:48)
[2023-07-14] MEDS: POTASSIUM CHLORIDE 20 MEQ TABLET PO SCH ×4 (08:48→19:51)
[2023-07-14] MEDS: FLUoxetine 20 MG CAPSULE GT SCH (08:49)
[2023-07-14] MEDS ORDERED: PANTOPRAZOLE SODIUM 40 MG SCH (09:00)
[2023-07-14 09:26] LABS: CALCIUM 8.2 MG/DL (8.5-10.1); CREATININE SERUM 0.83 MG/DL (0.60-1.30); POTASSIUM 2.7 MMOL/L (3.6-5.0)
--- NOTE | 2023-07-14 09:31 | Cardiology Progress Note ---
Subjective Date Seen by Provider: Jul 14, 2023 Time Seen by Provider: 08:55 Subjective/Events-last exam Patient laying in bed, complaining of generalized weakness and dyspnea. Focused Exam Lactate Level 07/12/23 13:13: Lactic Acid Level 0.66 Objective-Cardiology Exam Last Set of Vital Signs Vital Signs 07/14/23 07/14/23 12:06 12:41 Temp 36.5 Pulse 62 Resp 20 B/P (MAP) 120/54 (76) Pulse Ox 99 O2 Delivery Nasal Cannula O2 Flow Rate 2.00 I&O Intake and Output 07/14/23 00:00 Intake Total 620 ml Output Total 4900 ml Balance -4280 ml Intake Oral 0 ml IV Total 620 ml Output Urine Total 4900 ml General: Alert, Oriented X3 HEENT: Atraumatic, PERRLA Lungs: Other (decreased breath sounds) Heart: Regular Rate Abdomen: Normal Bowel Sounds, Soft Extremities: Other (+1 edema BLE) Neuro: Normal Speech Psych/Mental Status: Other (flat affect) Results Lab Laboratory Tests 07/14/23 05:28 07/14/23 09:04 A/P-Cardiology Admission Diagnosis Congestive heart failure Abdominal pain Constipation Assessment/Plan Congestive heart failure, Decompensated, shortness of breath with elevation in BNP Started on diuretics, appears to be responding well 2D Echo done 07/13/23 showing EF 65-70%. PA 15-20mmHg. Study not technically sufficient enough to evaluate LV diastolic function. Atrial fibrillation with left bundle branch block Started on Lovenox Abdominal pain, constipation, managed by medical team UTI, started on antibiotics, managed by medical team Hypokalemia, replace and continue to monitor. Questionable history of coronary artery disease. Initial troponin was minimally elevated, repeat troponin was normal. Continue medical management Hypothyroidism, elevated TSH Defer management to medical team History of left AKA Supervisory-Addendum Brief Supervisory Addendum Participated in pt care: history, MDM, physical Personally performed: exam, history, MDM Care discussed with: BARON Results interpretation: Verified all documentation Notes: Patient was seen and evaluated with Esperanza, examination performed, management plan was discussed, agree with the current scribed note, I made few changes to the note using Italic font Patient was seen at bedside, responding well to diuretics Echocardiogram showed normal LV function Currently on Lovenox, I will switch it to Xarelto prior to discharge and monitor tolerance and response Monitor blood pressure Reporting improvement in her abdominal pain ESPERANZA SARKAR Jul 14, 2023 09:31 ABBIE BERGER MD Jul 14, 2023 13:44
[2023-07-14] MEDS: RT-Ipratropium/Albuterol NEB 3 ML VIAL INH SCH ×2 (09:46→20:56)
[2023-07-14 12:06] VITALS: BP 120/54
--- NOTE | 2023-07-14 12:24 | Progress Note ---
LEIGH ARCHULETA 07/14/23 1224: Subjective Date Seen by a Provider: Jul 14, 2023 Time Seen by a Provider: 09:30 Subjective/Events-last exam Initially asleep in bed when seen, easily aroused. She states that she has been feeling SOB, unchanged from yesterday. O2 sats in high 90s on 2L [place] nursing reports she needs frequent reminders to breathe through her nose in order to utilize the supplemental oxygen. She reports that she is still having some epigastric pain which she has been having for quite awhile now, but states that it is improved from yesterday. [place], patient has been receiving 4 cans of Jevity 1.5 during the night for feedings. Will start feedings today. Echo completed yesterday showed EF of 65-70%, unable to evaluate diastolic dysfunction due to body habitus, patient noncompliance Patient has no new complaints. Review of Systems General: No Chills, No Night Sweats HEENT: No Head Aches, No Visual Changes Pulmonary: Dyspnea (states mild SOB); No Cough Cardiovascular: No: Chest Pain, Palpitations Gastrointestinal: No: Nausea, Vomiting Genitourinary: No Dysuria, No Hematuria Musculoskeletal: No: neck pain, back pain Neurological: No: Weakness, Numbness Focused Exam Lactate Level 07/12/23 13:13: Lactic Acid Level 0.66 Objective Exam Last Set of Vital Signs Vital Signs Date Time Temp Pulse Resp B/P (MAP) Pulse Ox O2 Delivery O2 Flow Rate FiO2 07/14/23 12:06 36.5 61 20 120/54 (76) 99 Nasal Cannula 2.00 Capillary Refill : I&O Intake and Output 07/14/23 00:00 Intake Total 620 ml Output Total 4900 ml Balance -4280 ml Intake Oral 0 ml IV Total 620 ml Output Urine Total 4900 ml General: Alert, Other (slight confusion) HEENT: Atraumatic Neck: Supple Lungs: Normal Air Movement Heart: Regular Rate Abdomen: Soft, Other (mild epigastric tenderness) Extremities: No Cyanosis, Normal Pulses Skin: No Rashes, No Breakdown Neuro: Normal Speech Psych/Mental Status: Mental Status NL Results Lab Laboratory Tests 07/14/23 05:28: White Blood Count 7.4, Red Blood Count 3.85, Hemoglobin 10.4L, Hematocrit 34L, Mean Corpuscular Volume 87, Mean Corpuscular Hemoglobin 27, Mean Corpuscular Hemoglobin Concent 31L, Red Cell Distribution Width 15.8H, Platelet Count 245, Mean Platelet Volume 10.8, Immature Granulocyte % (Auto) 0, Neutrophils (%) (Auto) 69, Lymphocytes (%) (Auto) 15, Monocytes (%) (Auto) 12, Eosinophils (%) (Auto) 3, Basophils (%) (Auto) 1, Neutrophils # (Auto) 5.1, Lymphocytes # (Auto) 1.1, Monocytes # (Auto) 0.9, Eosinophils # (Auto) 0.2, Basophils # (Auto) 0.0, Immature Granulocyte # (Auto) 0.0, Sodium Level 146H, Potassium Level 2.5*L, Chloride Level 99, Carbon Dioxide Level 35H, Anion Gap 12, Blood Urea Nitrogen 36H, Creatinine 0.85, Estimat Glomerular Filtration Rate 73, BUN/Creatinine Ratio 42, Glucose Level 79, Calcium Level 8.2L, Corrected Calcium 9.0, Magnesium Level 2.2, Total Bilirubin 0.3, Aspartate Amino Transf (AST/SGOT) 20, Alanine Aminotransferase (ALT/SGPT) 18, Alkaline Phosphatase 139H, Total Protein 6.7, Albumin 3.0L 07/14/23 09:04: Sodium Level 145, Potassium Level 2.7L, Chloride Level 97L, Carbon Dioxide Level 34H, Anion Gap 14, Blood Urea Nitrogen 33H, Creatinine 0.83, Estimat Glomerular Filtration Rate 75, BUN/Creatinine Ratio 40, Glucose Level 82, Calcium Level 8.2L Microbiology 07/12/23 Blood Culture - Preliminary, Resulted No growth 07/12/23 Urine Culture - Preliminary, Resulted Enterobacter cloacae complex Enterococcus faecalis Susceptibility To Follow Assessment/Plan Assessment/Plan Assess & Plan/Chief Complaint Acute CHF - echo showed EF65-70%, unable to evaluate diastolic, cardiology consulted, appreciate recs, responding well to lasix, ended yesterday -4800ml, continue to monitor I's&O's AMS - resolved UTI: on Vancomycin, zosyn A-fib: rate currently controlled, on lovenox Hypothyroidism - Levothyroxine 112mcg daily G-tube dependent: starting feeds today Normocytic anemia: mild, close to patient's baseline, continue to monitor Hypokalemia: 2.5 this morning, remeasured at 2.7, continue K replacement Clinical Quality Measures Admission Status Admission Dx Acute CHF exacerbation: Cardiology consulted, appreciate recs. Receiving lasix 40mg BID. Monitor I's and O's, -3100 yesterday, -1900 so far today. Echo ordered. SOB- on 2L O2 via [place] maintaining good O2 sats UTI- Received rocephin in ED, currently on Vancomycin, zosyn G-tube dependent: Patient is unsure on details of her feeds, reaching out to [facility] for more information Hx of left AKA, managed by wound care clinic MARIA FERNANDA LAUGHLIN MD 07/14/23 1709: Supervisory-Addendum Brief Verification & Attestation Participated in pt care: history, physical Personally performed: exam, history Care discussed with: Medical Student Procedures: n/a Verification and Attestation of Medical Student E/M Service A medical student performed and documented this service in my presence. I reviewed and verified all information documented by the medical student and made modifications to such information, when appropriate. I personally performed the physical exam and medical decision making. Maria Fernanda Laughlin, Jul 14, 2023,17:07 Agree with above, in addition Plan: Acute CHF Acute Respiratory Failure with hypoxia Altered mental Status: resolved -Unable to evaluate Diastolic due to body hiabitus, IV lasix, Cardiology consult, appreciate recommendations, titrate oxygen as tolerated 07/14: Good UOP, likely can descalate lasix in AM Type II DC Atrial Fibrillation rate controlled - Troponin trending down, likely 2/2 to stress, no chest pain UTI - H/o multi drug resistance, IV antibiotics adjusted 07/14: Enterococcous, sensitivities pending Hypothyroidism - Levothyroxine needs adjusted Normocytic anemia - At baseline, no acute bleeding Hypokalemia - Replace and repeat BMP in AM L AKA G-tube dependent Dispo: Possible d/c SNF /Wednesday LEIGH ARCHULETA Jul 14, 2023 12:24 MARIA FERNANDA LAUGHLIN MD Jul 14, 2023 17:09
[2023-07-14 16:43] VITALS: BP 135/70
[2023-07-14 19:46] VITALS: BP 116/70
[2023-07-14] MEDS: QUEtiapine IMMEDIATE RELEASE 25 MG TABLET PO SCH (19:51)
[2023-07-14 23:41] VITALS: BP 118/67
[2023-07-15] VITALS (7 sets, daily range): BP systolic 106–167; BP diastolic 54–70
[2023-07-15] MEDS: ONDANSETRON INJECTION 4 MG/2 ML (SDV) IV PRN ×3 (01:33→18:05)
[2023-07-15] MEDS: HYDROcodone/ACETAMINOPHEN 10/325 TABLET PO PRN (02:32)
[2023-07-15] MEDS: PIPERACILLIN/Tazobactam 4.5 GM in NS (IVPB) 100 ML 100 ML IV SCH ×3 (03:53→19:22)
[2023-07-15] MEDS ORDERED: TROUGH ORDER-PHARMACY XX ONE (05:00)
[2023-07-15] MEDS: ENOXAPARIN 300 MG/3 ML MULTI-DOSE VIAL SQ SCH (05:38)
[2023-07-15] MEDS: CATHETER FLUSH 10 ML SYR IVP SCH ×3 (05:42→21:41)
[2023-07-15 05:50] LABS: CALCIUM 8.4 MG/DL (8.5-10.1); CREATININE SERUM 0.92 MG/DL (0.60-1.30); POTASSIUM 2.9 MMOL/L (3.6-5.0)
[2023-07-15 05:59] LABS: VANCOMYCIN,TROUGH 36.7 UG/ML (10.0-20.0)
[2023-07-15] MEDS: VANCOMYCIN 1250 MG/NS 250 ML PREMIX IV SCH (06:01)
[2023-07-15] MEDS: LEVOTHYROXINE 112 MCG TABLET GT SCH (06:04)
[2023-07-15] MEDS: FUROSEMIDE INJECTION 40 MG/4 ML VIAL IVP SCH (06:04)
[2023-07-15] MEDS: HYDROXYCHLOROQUINE 200 MG TABLET GT SCH ×2 (06:04→17:59)
[2023-07-15] MEDS: PANTOPRAZOLE 2 MG/ML LIQUID 200 ML (PROTONIX) GT SCH ×3 (06:08)
[2023-07-15] MEDS: RT-Ipratropium/Albuterol NEB 3 ML VIAL INH SCH (06:46)
[2023-07-15] MEDS: D5 1/2NS + KCL 40 MEQ/L 1000ML 1,000 ML IV SCH ×2 (07:34→18:00)
[2023-07-15] MEDS: ARIPiprazole 10 MG TABLET GT SCH (08:05)
[2023-07-15] MEDS: AMIODARONE 200 MG TABLET GT SCH (08:05)
[2023-07-15] MEDS: ASPIRIN 81 MG CHEWABLE TABLET PO SCH (08:05)
[2023-07-15] MEDS: FLUoxetine 20 MG CAPSULE GT SCH (08:06)
[2023-07-15] MEDS: FUROSEMIDE 40 MG TABLET PO SCH ×2 (08:07→18:00)
[2023-07-15] MEDS: POTASSIUM CHLORIDE 20 MEQ TABLET PO SCH ×4 (08:08→20:40)
--- NOTE | 2023-07-15 08:31 | Cardiology Progress Note ---
Subjective Date Seen by Provider: Jul 15, 2023 Time Seen by Provider: 08:31 Subjective/Events-last exam Patient was seen at bedside, lethargic. No new complaint Focused Exam Lactate Level 07/12/23 13:13: Lactic Acid Level 0.66 Objective-Cardiology Exam Last Set of Vital Signs Vital Signs 07/15/23 07/15/23 07/15/23 07/15/23 03:05 06:46 06:51 07:00 Temp 36.7 Pulse 68 Resp 17 B/P (MAP) 128/70 (89) Pulse Ox 92 O2 Delivery Nasal Cannula O2 Flow Rate 2.00 I&O Intake and Output 07/15/23 00:00 Intake Total 260 ml Output Total 3100 ml Balance -2840 ml Intake Oral 160 ml IV Total 100 ml Output Urine Total 3100 ml # Bowel Movements 3 General: Alert, Cooperative, Other (slight confusion) HEENT: Atraumatic Neck: Supple Lungs: Normal Air Movement Heart: Regular Rate, Normal S1, Normal S2 Abdomen: Soft, Other (mild epigastric tenderness) Extremities: No Cyanosis, Normal Pulses Skin: No Rashes, No Breakdown Neuro: Normal Speech Psych/Mental Status: Mental Status NL Results Lab Laboratory Tests 07/14/23 09:04 07/15/23 05:27 A/P-Cardiology Admission Diagnosis Congestive heart failure Abdominal pain Constipation Assessment/Plan Congestive heart failure, Decompensated, shortness of breath with elevation in BNP Started on diuretics, appears to be responding well 2D Echo done 07/13/23 showing EF 65-70%. PA 15-20mmHg. Study not technically sufficient enough to evaluate LV diastolic function. Atrial fibrillation with left bundle branch block Started on Lovenox Abdominal pain, constipation, managed by medical team UTI, started on antibiotics, managed by medical team Hypokalemia, replace and continue to monitor. Questionable history of coronary artery disease. Initial troponin was minimally elevated, repeat troponin was normal. Continue medical management Hypothyroidism, elevated TSH Defer management to medical team History of left AKBARA ABBIE BERGER MD Jul 15, 2023 08:31
--- NOTE | 2023-07-15 10:36 | Diagnostic Imaging Report ---
INDICATION: Dyspnea. Frontal chest obtained at 8:38 a.m. compared with 07/12/2023 There is cardiomegaly. There is central vascular congestion which appears similar to the prior study. There is some left basilar infiltrate versus atelectasis with questionable small left pleural effusion. IMPRESSION: Cardiomegaly with central vascular congestion. There is some left basilar infiltrate versus atelectasis with questionable small left pleural effusion. Dictated by: Dictated on workstation # [id number]
--- NOTE | 2023-07-15 11:21 | Progress Note ---
LEIGH ARCHULETA 07/15/23 1121: Subjective Date Seen by a Provider: Jul 15, 2023 Time Seen by a Provider: 09:15 Subjective/Events-last exam Patient seen laying in bed this morning. She reports that she feels well overall today. She reports she is still having some SOB, continues to maintain good O2 sats on 2L via [place] Still having some mild epigastric pain with some slight tenderness to palpation, but reports it feels slightly improved from yesterday. Has been doing well with tube feeds, reports that she gets some nausea, no vomiting afterwards. Patient has no new complaints. Review of Systems General: No Chills, No Night Sweats HEENT: No Head Aches, No Visual Changes Pulmonary: Dyspnea; No Cough Cardiovascular: No: Chest Pain, Palpitations Gastrointestinal: Nausea (mild nausea after feeds), Abdominal Pain (mild epigastric pain); No: Vomiting Genitourinary: No Dysuria, No Hematuria Musculoskeletal: No: neck pain, back pain Neurological: No: Weakness, Numbness Focused Exam Lactate Level 07/12/23 13:13: Lactic Acid Level 0.66 Objective Exam Last Set of Vital Signs Vital Signs Date Time Temp Pulse Resp B/P (MAP) Pulse Ox O2 Delivery O2 Flow Rate FiO2 07/15/23 08:41 37.0 65 18 167/70 (102) 96 Nasal Cannula 2.00 Capillary Refill : I&O Intake and Output 07/15/23 00:00 Intake Total 260 ml Output Total 3100 ml Balance -2840 ml Intake Oral 160 ml IV Total 100 ml Output Urine Total 3100 ml # Bowel Movements 3 General: Alert, Oriented X3 HEENT: Atraumatic Neck: Supple Lungs: Clear to Auscultation Heart: Regular Rate, No Murmurs Abdomen: Soft, Other (slight tenderness to palpation in epigastric) Extremities: No Clubbing, No Cyanosis Skin: No Rashes, No Breakdown Neuro: Normal Speech Psych/Mental Status: Mental Status NL Results Lab Laboratory Tests 07/15/23 05:27: Sodium Level 145, Potassium Level 2.9L, Chloride Level 100, Carbon Dioxide Level 32, Anion Gap 13, Blood Urea Nitrogen 33H, Creatinine 0.92, Estimat Glomerular Filtration Rate 66, BUN/Creatinine Ratio 36, Glucose Level 178H, Calcium Level 8.4L, Magnesium Level 2.0, Vancomycin Level Trough 36.7*H Microbiology 07/12/23 Blood Culture - Preliminary, Resulted No growth 07/12/23 Urine Culture - Preliminary, Resulted Enterobacter cloacae complex Enterococcus faecalis Susceptibility To Follow Assessment/Plan Assessment/Plan Assess & Plan/Chief Complaint Acute CHF - echo on 07/13 showed EF65-70%, unable to evaluate diastolic, cardiology consulted, appreciate recs, responding well to lasix, ended yesterday -4800ml, continue to monitor I's&O's Acute Respiratory failure with hypoxia - improved, has maintained good O2 sats on 2L via [place] AMS - resolved UTI: on Vancomycin, zosyn A-fib: rate currently controlled, on lovenox Hypothyroidism - Levothyroxine 112mcg daily G-tube dependent: Doing well with resuming feeds Normocytic anemia: mild, close to patient's baseline, continue to monitor Hypokalemia: Improved from 2.7 yesterday to 2.9 today, continue K replacement Nausea: slight nausea after feeds, zofran as needed Clinical Quality Measures Admission Status Admission Dx Acute CHF exacerbation: Cardiology consulted, appreciate recs. Receiving lasix 40mg BID. Monitor I's and O's, -3100 yesterday, -1900 so far today. Echo ordered. SOB- on 2L O2 via [place] maintaining good O2 sats UTI- Received rocephin in ED, currently on Vancomycin, zosyn G-tube dependent: Patient is unsure on details of her feeds, reaching out to [facility] for more information Hx of left AKA, managed by wound care clinic MARIA FERNANDA LAUGHLIN MD 07/15/23 1503: Supervisory-Addendum Brief Verification & Attestation Participated in pt care: history, physical Personally performed: exam, history Care discussed with: Medical Student Procedures: n/a Verification and Attestation of Medical Student E/M Service A medical student performed and documented this service in my presence. I reviewed and verified all information documented by the medical student and made modifications to such information, when appropriate. I personally performed the physical exam and medical decision making. Maria Fernanda Laughlin, Jul 15, 2023,15:00 Agree with above, in addition Plan: Acute CHF Acute Respiratory Failure with hypoxia Altered mental Status: resolved -Unable to evaluate Diastolic due to body hiabitus, IV lasix, Cardiology co nsult, appreciate recommendations, titrate oxygen as tolerated 07/14: Good UOP, likely can descalate lasix in AM 07/15: Deescalate Lasix to PO Type II DE Atrial Fibrillation rate controlled - Troponin trending down, likely 2/2 to stress, no chest pain UTI - H/o multi drug resistance, IV antibiotics adjusted 07/14: Enterococcous, sensitivities pending Hypothyroidism - Levothyroxine needs adjusted Normocytic anemia - At baseline, no acute bleeding Hypokalemia - Replace and repeat BMP in AM 07/15: Increased Potassium and added to IVFs L AKA G-tube dependent LEIGH ARCHULETA Jul 15, 2023 11:21 MARIA FERNANDA LAUGHLIN MD Jul 15, 2023 15:03
--- NOTE | 2023-07-15 11:24 | Diagnostic Imaging Report ---
INDICATION: Right upper extremity PICC placement. TECHNIQUE: Portable AP view of chest is obtained with comparison made to study of 07/15/2023. FINDINGS: Right upper extremity PICC has been placed however the tip is directed cephalad in the region of jugular vein. Cardiomegaly and left basilar infiltrate have not changed. There is no evidence of pneumothorax. IMPRESSION: Abnormal positioning of right upper extremity PICC with catheter tip directed cephalad and likely within the jugular vein. Dictated by: Dictated on workstation # [id number]
[2023-07-15] MEDS: ENOXAPARIN 100 MG/1 ML SYRINGE SC SCH (18:01)
[2023-07-15] MEDS: QUEtiapine IMMEDIATE RELEASE 25 MG TABLET PO SCH (20:40)
[2023-07-16] MEDS: ONDANSETRON INJECTION 4 MG/2 ML (SDV) IV PRN ×2 (00:30→06:56)
[2023-07-16] MEDS: HYDROcodone/ACETAMINOPHEN 10/325 TABLET PO PRN (00:31)
[2023-07-16] MEDS: D5 1/2NS + KCL 40 MEQ/L 1000ML 1,000 ML IV SCH ×2 (02:47→11:10)
[2023-07-16] MEDS: PIPERACILLIN/Tazobactam 4.5 GM in NS (IVPB) 100 ML 100 ML IV SCH ×2 (03:13→11:10)
[2023-07-16 04:00] VITALS: BP 135/64
[2023-07-16] MEDS: ENOXAPARIN 100 MG/1 ML SYRINGE SC SCH (04:56)
[2023-07-16 05:25] LABS: CALCIUM 8.1 MG/DL (8.5-10.1); CREATININE SERUM 0.87 MG/DL (0.60-1.30); POTASSIUM 3.5 MMOL/L (3.6-5.0)
[2023-07-16] MEDS: CATHETER FLUSH 10 ML SYR IVP SCH (06:00)
[2023-07-16] MEDS: PANTOPRAZOLE 2 MG/ML LIQUID 200 ML (PROTONIX) GT SCH ×3 (06:00)
[2023-07-16] MEDS: HYDROXYCHLOROQUINE 200 MG TABLET GT SCH (06:16)
[2023-07-16] MEDS: LEVOTHYROXINE 112 MCG TABLET GT SCH (06:16)
[2023-07-16] MEDS: FUROSEMIDE 40 MG TABLET PO SCH (06:16)
[2023-07-16] MEDS ORDERED: TROUGH ORDER-PHARMACY XX ONE (07:00)
[2023-07-16 07:24] VITALS: BP 135/75
[2023-07-16] MEDS ORDERED: VANCOMYCIN 1250 MG/NS 250 ML PREMIX IV SCH (08:00)
[2023-07-16] MEDS: POTASSIUM CHLORIDE 20 MEQ TABLET PO SCH (08:21)
[2023-07-16] MEDS: ARIPiprazole 10 MG TABLET GT SCH (08:21)
[2023-07-16] MEDS: ASPIRIN 81 MG CHEWABLE TABLET PO SCH (08:21)
[2023-07-16] MEDS: FLUoxetine 20 MG CAPSULE GT SCH (08:21)
[2023-07-16] MEDS: AMIODARONE 200 MG TABLET GT SCH (08:21)
--- NOTE | 2023-07-16 10:10 | Cardiology Progress Note ---
Subjective Date Seen by Provider: Jul 16, 2023 Time Seen by Provider: 10:10 Subjective/Events-last exam Patient was seen at bedside, laying down comfortably. No new complaint Objective-Cardiology Exam Last Set of Vital Signs Vital Signs 07/16/23 07/16/23 07:24 08:00 Temp 36.9 Pulse 63 Resp 18 B/P (MAP) 135/75 (95) Pulse Ox 98 O2 Delivery Nasal Cannula O2 Flow Rate 2.00 I&O Intake and Output 07/15/23 23:59 Intake Total 840 ml Output Total 2500 ml Balance -1660 ml Intake Oral 0 ml IV Total 100 ml Tube Feeding 640 ml Enteral Flush 100 ml Output Urine Total 2500 ml # Bowel Movements 2 General: Alert, Oriented X3 HEENT: Atraumatic Neck: Supple Lungs: Clear to Auscultation Heart: Regular Rate, No Murmurs Abdomen: Soft, Other (slight tenderness to palpation in epigastric) Extremities: No Clubbing, No Cyanosis Skin: No Rashes, No Breakdown Neuro: Normal Speech Psych/Mental Status: Mental Status NL Results Lab Laboratory Tests 07/16/23 04:55 A/P-Cardiology Admission Diagnosis Congestive heart failure Abdominal pain Constipation Assessment/Plan Congestive heart failure, Decompensated, shortness of breath with elevation in BNP Started on diuretics, appears to be responding well 2D Echo done 07/13/23 showing EF 65-70%. PA 15-20mmHg. Study not technically sufficient enough to evaluate LV diastolic function. Atrial fibrillation with left bundle branch block Started on Lovenox Abdominal pain, constipation, managed by medical team UTI, started on antibiotics, managed by medical team Hypokalemia, replace and continue to monitor. Questionable history of coronary artery disease. Initial troponin was minimally elevated, repeat troponin was normal. Continue medical management Hypothyroidism, elevated TSH Defer management to medical team History of left ABBIE RANDOLPH MD Jul 16, 2023 10:10
[2023-07-16 12:10] VITALS: BP 132/84
--- NOTE | 2023-07-16 12:17 | Discharge Summary ---
Discharge Summary Hospital Course Was the Problem List Reviewed?: Yes Problems/Dx: (1) Acute on chronic heart failure Status: Acute Qualifiers: Qualified Codes: I50.9 - Heart failure, unspecified (2) Above knee amputation of left lower extremity Status: Acute (3) UTI (urinary tract infection) Status: Acute Qualifiers: Qualified Codes: N30.00 - Acute cystitis without hematuria Hospital Course Date of Admission: Jul 12, 2023 at 16:54 Admission Diagnosis : Family Physician/Provider: Di Pagan Date of Discharge: 07/16/23 Discharge Diagnosis: [ ] Hospital Course: Patient is a 72-year-old resident of [facility] who was being seen at the wound clinic and admitted for acute respiratory failure with hypoxia and AMS. She was found to have an acute exacerbation of CHF, cardiology was consulted and she was started on 40mg IV lasix BID, which was changed to PO today. She responded well to the lasix, good urine output, and her AMS resolved, back at her baseline. She has been on 2L supplemental O2 via [place] throughout her stay and has maintained good O2 sats, she does not normally use O2 at the facility, but had been using it for the week prior to admission. She was found to be in a-fib on EKG and was started on lovenox during this stay. She had some mild normocytic anemia throughout her stay, but this is her baseline, she was also found to be hypokalemic, started on potassium replacement and today her potassium was measured at 3.5. She was found to have a UTI on admission, has a history of MDR infections, started initially on rocephin, then treated with vancomycin and zosyn, she also received ampicillin and ceftazidime/avibactim. Her levothyroxine dose was also adjusted during this stay, increased to 112mcg. She is being discharged todayTo swing bed status Labs and Pending Lab Test: Laboratory Tests 07/16/23 04:55: Sodium Level 150H, Potassium Level 3.5L, Chloride Level 102, Carbon Dioxide Level 34H, Anion Gap 14, Blood Urea Nitrogen 31H, Creatinine 0.87, Estimat Glomerular Filtration Rate 71, BUN/Creatinine Ratio 36, Glucose Level 166H, Calcium Level 8.1L 07/16/23 06:50: Vancomycin Level Trough 16.8 Microbiology 07/12/23 Blood Culture - Preliminary, Resulted No growth 07/12/23 Urine Culture - Preliminary, Resulted Enterobacter cloacae complex Enterobacter cloacae complex#2 Enterococcus faecalis Home Meds Active Reported Lorazepam 2 Mg/Ml Oral.conc 0.125 Ml PEG Q8H Betamethasone Dipropionate 0.05 % Lotion 1 Applic TOP UD PRN Fluoxetine HCl 20 Mg Tablet 20 Mg DAILY Children's Sudafed (Pseudoephedrine HCl) 15 Mg/5 Ml Liquid 20 Ml Q8H PRN Claritin (Loratadine) 5 Mg Tab.rapdis 10 Mg DAILY TAKES 2 (5MG) TABS Albuterol Sulfate 2.5 Mg/3 Ml (0.083 %) Vial.neb 3 Ml NEB Q6H PRN Simethicone 125 Mg Capsule 125 Mg QID PRN Amiodarone HCl 200 Mg Tablet 200 Mg DAILY Nystatin 100,000 Unit/Gram Powder 1 Applic TOP Q12H PERIWOUND Fluticasone Propionate 50 Mcg/Actuation [place].susp 1 [place] NSEACH DAILY Vitamin C (Ascorbic Acid) 500 Mg Tablet 500 Mg PO BID Quetiapine Fumarate 25 Mg Tablet 25 Mg PO HS [Potassium Chloride] 20MEQ/15ML Soln 15 Ml BID One Daily Plus Minerals (Multivitamin with Minerals) 1 Each Tablet 1 Each DAILY Furosemide 40 Mg Tablet 40 Mg DAILY Floranex Tablet (L. Acidophilus/Bulgaricus) 1 Million Cell Tablet 2 Each TID Hydroxychloroquine Sulfate 200 Mg Tablet 200 Mg Q12H Levothyroxine Sodium 112 Mcg Tablet 112 Mcg DAILY Melatonin 3 Mg Tablet 3 Mg HS PRN Ondansetron Odt (Ondansetron) 4 Mg Tab.rapdis 4 Mg Q8H PRN Pramipexole Dihydrochloride (Pramipexole Di-HCl) 0.125 Mg Tablet 0.125 Mg HS Pantoprazole Sodium 40 Mg Granpkt.dr 40 Mg DAILY Tylenol (Acetaminophen) 325 Mg Tablet 650 Mg Q6H PRN Vitamin D3 (Cholecalciferol (Vitamin D3)) 25 Mcg (1000 Unit) Tab.chew 25 Mcg PO DAILY Metamucil Free Powder (Psyllium Husk (with Sugar)) 3 Gram/7 Gram Powder 7 Gm BID Hydrocodone-Acetamin 10-325 mg (Hydrocodone/Acetaminophen) 10 Mg-325 Mg Tablet 1 Ea QID Loperamide (Loperamide HCl) 2 Mg Tablet 2 Mg DAILY PRN Loperamide (Loperamide HCl) 2 Mg Capsule 2 Mg Q12H Pregabalin 150 Mg Capsule 150 Mg TID Aripiprazole 10 Mg Tablet 10 Mg DAILY Assessment/Pt Instructions Swing bed Discharge Planning: <30 minutes discharge planning Discharge Instructions Discharge Diet: Tube Feeding Discharge Physical Examination Vital Signs Vital Signs Date Time Temp Pulse Resp B/P (MAP) Pulse Ox O2 Delivery O2 Flow Rate FiO2 07/16/23 12:10 36.0 61 16 132/84 (100) 98 Nasal Cannula 2.00 General Appearance: No Apparent Distress, WD/WN, Chronically ill, Obese Allergies: Coded Allergies: cephalexin (Verified Allergy, Unknown, 07/12/23) codeine (Verified Allergy, Unknown, 07/12/23) latex (Unverified Allergy, Unknown, 12/10/22) morphine (Verified Allergy, Unknown, 07/12/23) Discharge Summary Date of Admission Jul 12, 2023 at 16:54 Date of Discharge Discharge Date: Jul 16, 2023 MAURICIO KHAN DO Jul 16, 2023 12:17
[2023-07-16] MEDS ORDERED: AMPICILLIN (IV) 1,000 MG in NS (IVPB) 50 ML 50 ML IV SCH (13:00)
[2023-07-16] MEDS ORDERED: CEFTAZIDIME IV SCH ×2 (13:00)
[2023-07-16] MEDS ORDERED: AVIBACTAM IV SCH ×2 (13:00)
[2023-07-16] MEDS ORDERED: SODIUM CHLORIDE IV SCH ×2 (13:00)
--- NOTE | 2023-07-16 13:03 | Progress Note ---
LEIGH ARCHULETA 07/16/23 1303: Progress Note Patient is a 72-year-old resident of [facility] who was being seen at the wound clinic and admitted for acute respiratory failure with hypoxia and AMS. She was found to have an acute exacerbation of CHF, cardiology was consulted and she was started on 40mg IV lasix BID, which was changed to PO today. She responded well to the lasix, good urine output, and her AMS resolved, back at her baseline. She has been on 2L supplemental O2 via [place] throughout her stay and has maintained good O2 sats, she does not normally use O2 at the facility, but had been using it for the week prior to admission. She was found to be in a-fib on EKG and was started on lovenox during this stay. She had some mild normocytic anemia throughout her stay, but this is her baseline, she was also found to be hypokalemic, started on potassium replacement and today her potassium was measured at 3.5. She was found to have a UTI on admission, has a history of MDR infections, started initially on rocephin, then treated with vancomycin and zosyn, she also received ampicillin and ceftazidime/avibactim. Her levothyroxine dose was also adjusted during this stay, increased to 112mcg. She is being discharged today back to [facility] NATALIE SIMMONS DO 07/17/23 0549: Supervisory-Addendum Brief Verification & Attestation Participated in pt care: history, MDM, physical Personally performed: exam, history, MDM, supervision of care Care discussed with: Medical Student Procedures: n/a Results interpretation: Verified all documentation Verification and Attestation of Medical Student E/M Service A medical student performed and documented this service in my presence. I reviewed and verified all information documented by the medical student and made modifications to such information, when appropriate. I personally performed the physical exam and medical decision making. Natalie Simmons Jul 17, 2023,05:49 LEIGH ARCHULETA Jul 16, 2023 13:03 NATALIE SIMMONS DO Jul 17, 2023 05:49
== END 2023-07-16 12:35 | disposition swing bed (61) | DRG 280 ==
LOC: EDUNIT# 12:48 → ER 12:50 → 4TH 16:54
PROVIDERS: ADMIT Family Medicine; ATTEND Internal Medicine
DX: I11.0 Hypertensive heart disease with heart failure (principal); J96.01 Acute respiratory failure with hypoxia; I21.A1 Myocardial infarction type 2; N39.0 Urinary tract infection, site not specified; I50.9 Heart failure, unspecified; R41.0 Disorientation, unspecified; I25.10 Atherosclerotic heart disease of native coronary artery without angina pectoris; K21.9 Gastro-esophageal reflux disease without esophagitis; Z66 Do not resuscitate; Z20.822 Contact with and (suspected) exposure to COVID-19; E03.9 Hypothyroidism, unspecified; I48.91 Unspecified atrial fibrillation; I44.7 Left bundle-branch block, unspecified; K59.00 Constipation, unspecified; D64.9 Anemia, unspecified; E87.6 Hypokalemia; Z79.01 Long term (current) use of anticoagulants; Z89.612 Acquired absence of left leg above knee; Z93.1 Gastrostomy status; Z88.1 Allergy status to other antibiotic agents; Z88.5 Allergy status to narcotic agent; Z79.891 Long term (current) use of opiate analgesic; Z79.899 Other long term (current) drug therapy
CPT/HCPCS: 36410; 36415; 36600; 71045; 76937; 80048; 80053; 80061; 80202; 81000; 82805; 83605; 83735; 83880; 84439; 84443; 84484; 85025; 85610; 85730; 86141; 87040; 87077; 87088; 87186; 87636; 93005; 93306; 94640; 94760

== ENCOUNTER → 2023-07-12 | Outpatient (CLI) | payer MEDICARE, MEDICAID ==
[~2023-07-12] MED LIST changes: +ACET325T38; +ACID1TAB; +ALBU2.5V4 NEB; +AMIO200T65; +ARIP10TA55; +ASCO500T17 PO; +BETA60LO5 TOP; +CHOL10008 PO; +FLUO20TA28; +FLUT16SP22 NSEACH; +FURO40TA4; +HYDR-3820; +HYDR200T71; +LEVO112T55; +LOPE2CAP; +LOPE2TAB34; +LORA5TAB9; +LORAZ30SOL PEG; +MELA3TAB39; +MULT-422; +NYST15PO4 TOP; +ONDA4TAB11; +PANT40GR; +POTASSIUM CHLORIDE; +PRAM0.128; +PREG150C46; +PSEU15LI; +QUET25TA35 PO; +SIME125C78; +[UNRECOGNIZED DRUG - CODE]
== END ==
LOC: WOUNDCARE 12:33
PROVIDERS: ATTEND Family Medicine
DX: T81.31XA Disruption of external operation (surgical) wound, not elsewhere classified, initial encounter (principal); D46.4 Refractory anemia, unspecified; E66.01 Morbid (severe) obesity due to excess calories; E44.0 Moderate protein-calorie malnutrition; E55.9 Vitamin D deficiency, unspecified; T87.89 Other complications of amputation stump; J96.01 Acute respiratory failure with hypoxia; M35.00 Sjogren syndrome, unspecified; Z68.41 Body mass index [BMI] 40.0-44.9, adult
CPT/HCPCS: A6197; G0463; 99212

== ENCOUNTER 2023-07-16 12:11 | Inpatient (IN) | payer MEDICARE, MEDICAID ==
[~2023-07-16] VITALS: Ht 170 cm; Wt 101.3 kg
[~2023-07-16 12:11] MED LIST changes: +ACET325T38; +ACID1TAB; +ALBU2.5V4 NEB; +AMIO200T65; +ARIP10TA55; +ASCO500T17 PO; +BETA60LO5 TOP; +CHOL10008 PO; +FLUO20TA28; +FLUT16SP22 NSEACH; +FURO40TA4; +HYDR-3820; +HYDR200T71; +LEVO112T55; +LOPE2CAP; +LOPE2TAB34; +LORA5TAB9; +LORAZ30SOL PEG; +MELA3TAB39; +MULT-422; +NYST15PO4 TOP; +ONDA4TAB11; +PANT40GR; +POTASSIUM CHLORIDE; +PRAM0.128; +PREG150C46; +PSEU15LI; +QUET25TA35 PO; +SIME125C78; +[UNRECOGNIZED DRUG - CODE]
[2023-07-16] MEDS ORDERED: RT-Ipratropium/Albuterol NEB 3 ML VIAL INH PRN (12:45)
[2023-07-16] MEDS ORDERED: HYDROXYCHLOROQUINE 200 MG TABLET GT SCH (12:45)
[2023-07-16] MEDS ORDERED: AVIBACTAM IV SCH (13:00)
[2023-07-16] MEDS ORDERED: NS IV SCH (13:00)
[2023-07-16] MEDS ORDERED: AMPICILLIN (IV) 1,000 MG in NS (IVPB) 50 ML 50 ML IV SCH (13:00)
[2023-07-16] MEDS ORDERED: CEFTAZIDIME IV SCH (13:00)
[2023-07-16] MEDS ORDERED: CATHETER FLUSH 10 ML SYR IVP PRN (13:45)
[2023-07-16] MEDS: D5 1/2NS + KCL 40 MEQ/L 1000ML 1,000 ML IV SCH ×2 (13:49→14:29)
[2023-07-16] MEDS: AMPICILLIN (IV) 1,000 MG in NS (IVPB) 50 ML 50 ML IV SCH ×2 (14:23→21:56)
[2023-07-16] MEDS: CATHETER FLUSH 10 ML SYR IVP SCH ×2 (14:25→21:57)
[2023-07-16] MEDS: AVIBACTAM IV SCH ×2 (14:28→21:53)
[2023-07-16] MEDS: NS IV SCH ×2 (14:28→21:53)
[2023-07-16] MEDS: CEFTAZIDIME IV SCH ×2 (14:28→21:53)
[2023-07-16] MEDS: ONDANSETRON INJECTION 4 MG/2 ML (SDV) IV PRN (14:33)
[2023-07-16] MEDS: ENOXAPARIN 100 MG/1 ML SYRINGE SC SCH (17:44)
[2023-07-16] MEDS: HYDROXYCHLOROQUINE 200 MG TABLET GT SCH (17:44)
[2023-07-16] MEDS: FUROSEMIDE 40 MG TABLET PO SCH (17:44)
[2023-07-16 18:04] VITALS: BP 132/67
[2023-07-16] MEDS: POTASSIUM CHLORIDE 20 MEQ TABLET PO SCH (21:52)
[2023-07-16] MEDS: QUEtiapine IMMEDIATE RELEASE 25 MG TABLET PO SCH (21:52)
[2023-07-16] MEDS ORDERED: NS (IVPB) 100 ML 100 ML ONE (22:00)
[2023-07-17] MEDS: AMPICILLIN (IV) 1,000 MG in NS (IVPB) 50 ML 50 ML IV SCH ×4 (01:38→20:30)
[2023-07-17] MEDS: HYDROcodone/ACETAMINOPHEN 10/325 TABLET PO PRN ×2 (03:27→18:05)
[2023-07-17 06:00] VITALS: BP 178/78
--- NOTE | 2023-07-17 06:04 | Progress Note - Hospitalist ---
Subjective HPI/CC On Admission Date Seen by Provider: Jul 17, 2023 Time Seen by Provider: 09:00 Subjective/Events-last exam No major issues Reviewed meds and labs Supportive care Review of Systems General: Fatigue, Malaise Objective Exam Vital Signs Vital Signs Date Time Temp Pulse Resp B/P (MAP) Pulse Ox O2 Delivery O2 Flow Rate FiO2 07/17/23 19:59 36.5 63 20 130/82 (98) 98 Nasal Cannula 2.00 Capillary Refill : General Appearance: No Apparent Distress, WD/WN, Chronically ill, Obese Respiratory: Lungs Clear, Normal Breath Sounds Cardiovascular: Regular Rate, Rhythm Neurologic/Psychiatric: Alert Results/Procedures Lab Laboratory Tests 07/17/23 06:55 Patient resulted labs reviewed. Assessment/Plan Assessment and Plan Assess & Plan/Chief Complaint Assessment: Complicated multidrug-resistant UTI G-tube dependent intermediate patient Advanced age Severe debility Plan: Supportive care IV antibiotics MAURICIO KHAN DO Jul 17, 2023 06:04
[2023-07-17] MEDS: NS IV SCH ×3 (06:43→21:06)
[2023-07-17] MEDS: AVIBACTAM IV SCH ×3 (06:43→21:06)
[2023-07-17] MEDS: CEFTAZIDIME IV SCH ×3 (06:43→21:06)
[2023-07-17] MEDS: HYDROXYCHLOROQUINE 200 MG TABLET GT SCH ×2 (06:44→17:57)
[2023-07-17] MEDS: ENOXAPARIN 100 MG/1 ML SYRINGE SC SCH ×2 (06:44→17:58)
[2023-07-17] MEDS: FUROSEMIDE 40 MG TABLET PO SCH ×2 (06:44→17:57)
[2023-07-17] MEDS: LEVOTHYROXINE 112 MCG TABLET GT SCH (06:44)
[2023-07-17] MEDS: CATHETER FLUSH 10 ML SYR IVP SCH ×3 (06:46→21:07)
[2023-07-17 07:04] LABS: BASOPHILS % (AUTO) 0 % (0-10); EOSINOPHILS % (AUTO) 0 % (0-10); HEMATOCRIT 31 % (35-52); HEMOGLOBIN 9.7 g/dL (11.5-16.0); LYMPHOCYTES # (AUTO) 1.3 10^3/uL (1.0-4.0); LYMPHOCYTES % (AUTO) 12 % (12-44); MEAN CORPUSCULAR HEMOGLOBIN 28 pg (25-34); MEAN CORPUSCULAR HGB CONC 32 g/dL (32-36); MEAN CORPUSCULAR VOLUME 89 fL (80-99); MEAN PLATELET VOLUME 10.9 fL (9.0-12.2); MONOCYTES % (AUTO) 9 % (0-12); NEUTROPHILS # (AUTO) 8.5 10^3/uL (1.8-7.8); NEUTROPHILS % (AUTO) 79 % (42-75); PLATELET COUNT 235 10^3/uL (130-400); WHITE BLOOD COUNT 10.8 10^3/uL (4.3-11.0)
[2023-07-17 07:25] LABS: ALBUMIN 3.1 GM/DL (3.2-4.5); BILIRUBIN,TOTAL 0.2 MG/DL (0.1-1.0); CALCIUM 7.9 MG/DL (8.5-10.1); CREATININE SERUM 0.8 MG/DL (0.60-1.30); POTASSIUM 3.7 MMOL/L (3.6-5.0); TOTAL PROTEIN 6.7 GM/DL (6.4-8.2)
[2023-07-17] MEDS: FLUoxetine 20 MG CAPSULE GT SCH (08:53)
[2023-07-17] MEDS: ARIPiprazole 10 MG TABLET GT SCH (08:53)
[2023-07-17] MEDS: ASPIRIN 81 MG CHEWABLE TABLET PO SCH (08:53)
[2023-07-17] MEDS: AMIODARONE 200 MG TABLET GT SCH (08:54)
[2023-07-17] MEDS: POTASSIUM CHLORIDE 20 MEQ TABLET PO SCH ×2 (08:54→20:34)
[2023-07-17] MEDS: D5 1/2NS + KCL 40 MEQ/L 1000ML 1,000 ML IV SCH ×2 (09:58→18:17)
[2023-07-17] MEDS: PANTOPRAZOLE 2 MG/ML LIQUID 200 ML (PROTONIX) GT SCH ×3 (09:59)
[2023-07-17 19:59] VITALS: BP 130/82
[2023-07-17] MEDS: QUEtiapine IMMEDIATE RELEASE 25 MG TABLET PO SCH (20:34)
[2023-07-17 23:34] VITALS: BP 124/60
[2023-07-18] MEDS: D5 1/2NS + KCL 40 MEQ/L 1000ML 1,000 ML IV SCH ×2 (01:18→15:20)
[2023-07-18] MEDS: AMPICILLIN (IV) 1,000 MG in NS (IVPB) 50 ML 50 ML IV SCH ×4 (02:25→20:18)
[2023-07-18] MEDS: ONDANSETRON INJECTION 4 MG/2 ML (SDV) IV PRN (02:36)
[2023-07-18 03:00] VITALS: BP 150/70
[2023-07-18] MEDS: ENOXAPARIN 100 MG/1 ML SYRINGE SC SCH ×2 (05:19→16:52)
[2023-07-18] MEDS: AVIBACTAM IV SCH ×3 (05:20→22:47)
[2023-07-18] MEDS: NS IV SCH ×3 (05:20→22:47)
[2023-07-18] MEDS: CATHETER FLUSH 10 ML SYR IVP SCH ×3 (05:20→22:47)
[2023-07-18] MEDS: CEFTAZIDIME IV SCH ×3 (05:20→22:47)
[2023-07-18] MEDS: FUROSEMIDE 40 MG TABLET PO SCH ×2 (05:20→16:51)
[2023-07-18] MEDS: LEVOTHYROXINE 112 MCG TABLET GT SCH (05:20)
[2023-07-18] MEDS: HYDROXYCHLOROQUINE 200 MG TABLET GT SCH ×2 (05:20→16:51)
[2023-07-18 05:53] LABS: BASOPHILS # (AUTO) 0.1 10^3/uL (0.0-0.1); BASOPHILS % (AUTO) 1 % (0-10); EOSINOPHILS # (AUTO) 0.1 10^3/uL (0.0-0.3); EOSINOPHILS % (AUTO) 1 % (0-10); HEMATOCRIT 32 % (35-52); HEMOGLOBIN 9.9 g/dL (11.5-16.0); LYMPHOCYTES # (AUTO) 1.3 10^3/uL (1.0-4.0); LYMPHOCYTES % (AUTO) 10 % (12-44); MEAN CORPUSCULAR HEMOGLOBIN 28 pg (25-34); MEAN CORPUSCULAR HGB CONC 31 g/dL (32-36); MEAN CORPUSCULAR VOLUME 88 fL (80-99); MEAN PLATELET VOLUME 10.8 fL (9.0-12.2); MONOCYTES # (AUTO) 0.9 10^3/uL (0.0-1.0); MONOCYTES % (AUTO) 7 % (0-12); NEUTROPHILS # (AUTO) 10.3 10^3/uL (1.8-7.8); NEUTROPHILS % (AUTO) 81 % (42-75); PLATELET COUNT 241 10^3/uL (130-400); WHITE BLOOD COUNT 12.6 10^3/uL (4.3-11.0)
[2023-07-18 06:11] LABS: ALBUMIN 3.2 GM/DL (3.2-4.5); BILIRUBIN,TOTAL 0.3 MG/DL (0.1-1.0); CALCIUM 8.1 MG/DL (8.5-10.1); CREATININE SERUM 0.78 MG/DL (0.60-1.30); POTASSIUM 4.1 MMOL/L (3.6-5.0)
[2023-07-18] MEDS: PANTOPRAZOLE 2 MG/ML LIQUID 200 ML (PROTONIX) GT SCH ×3 (06:36)
--- NOTE | 2023-07-18 07:08 | Progress Note - Hospitalist ---
Subjective HPI/CC On Admission Date Seen by Provider: Jul 18, 2023 Time Seen by Provider: 11:00 Subjective/Events-last exam Patient doing about the same Left [id number] amputation makes it very difficult for her to get out of bed G-tube feeding tolerated IV antibiotics maintained Supportive care we will continue Review of Systems General: Fatigue, Malaise Objective Exam Vital Signs Vital Signs Date Time Temp Pulse Resp B/P (MAP) Pulse Ox O2 Delivery O2 Flow Rate FiO2 07/18/23 12:45 36.3 66 18 143/82 (102) 98 Nasal Cannula 2.00 Capillary Refill : General Appearance: No Apparent Distress, WD/WN, Chronically ill, Obese Cardiovascular: Regular Rate, Rhythm Neurologic/Psychiatric: Alert, Oriented x3, Depressed Affect Results/Procedures Lab Laboratory Tests 07/18/23 05:43 Patient resulted labs reviewed. Assessment/Plan Assessment and Plan Assess & Plan/Chief Complaint Assessment: Complicated multidrug-resistant UTI G-tube dependent [facility]P patient Advanced age Severe debility Left AKA Plan: Supportive care IV antibiotics Swing bed MAURICIO KHAN DO Jul 18, 2023 07:08
[2023-07-18 08:57] VITALS: BP 127/61
[2023-07-18] MEDS: POTASSIUM CHLORIDE 20 MEQ TABLET PO SCH ×2 (10:46→20:18)
[2023-07-18] MEDS: AMIODARONE 200 MG TABLET GT SCH (10:46)
[2023-07-18] MEDS: ARIPiprazole 10 MG TABLET GT SCH (10:46)
[2023-07-18] MEDS: FLUoxetine 20 MG CAPSULE GT SCH (10:46)
[2023-07-18] MEDS: ASPIRIN 81 MG CHEWABLE TABLET PO SCH (10:46)
[2023-07-18 12:45] VITALS: BP 143/82
[2023-07-18 17:00] VITALS: BP 171/70
[2023-07-18] MEDS: QUEtiapine IMMEDIATE RELEASE 25 MG TABLET PO SCH (20:18)
[2023-07-18 20:56] VITALS: BP 135/63
[2023-07-18 23:25] VITALS: BP 142/78
[2023-07-19] MEDS: D5 1/2NS + KCL 40 MEQ/L 1000ML 1,000 ML IV SCH ×3 (01:53→21:44)
[2023-07-19] MEDS: AMPICILLIN (IV) 1,000 MG in NS (IVPB) 50 ML 50 ML IV SCH ×4 (02:38→21:26)
[2023-07-19 03:05] VITALS: BP 138/72
[2023-07-19] MEDS: HYDROcodone/ACETAMINOPHEN 10/325 TABLET PO PRN ×2 (03:07→10:14)
[2023-07-19] MEDS: ENOXAPARIN 100 MG/1 ML SYRINGE SC SCH ×2 (05:19→18:21)
[2023-07-19] MEDS: LEVOTHYROXINE 112 MCG TABLET GT SCH (05:19)
[2023-07-19] MEDS: NS IV SCH ×3 (05:19→21:26)
[2023-07-19] MEDS: CEFTAZIDIME IV SCH ×3 (05:19→21:26)
[2023-07-19] MEDS: HYDROXYCHLOROQUINE 200 MG TABLET GT SCH ×2 (05:19→18:21)
[2023-07-19] MEDS: AVIBACTAM IV SCH ×3 (05:19→21:26)
[2023-07-19] MEDS: PANTOPRAZOLE 2 MG/ML LIQUID 200 ML (PROTONIX) GT SCH ×3 (05:20)
[2023-07-19] MEDS: CATHETER FLUSH 10 ML SYR IVP SCH ×3 (05:20→21:44)
[2023-07-19] MEDS: FUROSEMIDE 40 MG TABLET PO SCH ×2 (05:22→18:21)
[2023-07-19 05:26] LABS: BASOPHILS # (AUTO) 0.1 10^3/uL (0.0-0.1); BASOPHILS % (AUTO) 0 % (0-10); EOSINOPHILS # (AUTO) 0.1 10^3/uL (0.0-0.3); EOSINOPHILS % (AUTO) 1 % (0-10); HEMATOCRIT 30 % (35-52); HEMOGLOBIN 9.5 g/dL (11.5-16.0); LYMPHOCYTES # (AUTO) 1.4 10^3/uL (1.0-4.0); LYMPHOCYTES % (AUTO) 11 % (12-44); MEAN CORPUSCULAR HEMOGLOBIN 28 pg (25-34); MEAN CORPUSCULAR HGB CONC 32 g/dL (32-36); MEAN CORPUSCULAR VOLUME 87 fL (80-99); MEAN PLATELET VOLUME 11.7 fL (9.0-12.2); MONOCYTES # (AUTO) 0.8 10^3/uL (0.0-1.0); MONOCYTES % (AUTO) 6 % (0-12); NEUTROPHILS # (AUTO) 10.8 10^3/uL (1.8-7.8); NEUTROPHILS % (AUTO) 82 % (42-75); PLATELET COUNT 252 10^3/uL (130-400); WHITE BLOOD COUNT 13.2 10^3/uL (4.3-11.0)
[2023-07-19 05:49] LABS: ALBUMIN 2.9 GM/DL (3.2-4.5); BILIRUBIN,TOTAL 0.3 MG/DL (0.1-1.0); CALCIUM 7.9 MG/DL (8.5-10.1); CREATININE SERUM 0.79 MG/DL (0.60-1.30); POTASSIUM 4.7 MMOL/L (3.6-5.0)
--- NOTE | 2023-07-19 06:56 | Progress Note - Hospitalist ---
Subjective HPI/CC On Admission Date Seen by Provider: Jul 19, 2023 Time Seen by Provider: 10:00 Subjective/Events-last exam No major issues overnight Remains supine in bed and bedridden IV abx maintained Loose stools No pain Review of Systems General: Fatigue, Malaise Objective Exam Vital Signs Vital Signs Date Time Temp Pulse Resp B/P (MAP) Pulse Ox O2 Delivery O2 Flow Rate FiO2 07/19/23 12:15 35.8 60 18 133/78 (96) 95 Nasal Cannula 2.00 Capillary Refill : General Appearance: No Apparent Distress, WD/WN, Chronically ill, Obese Respiratory: Lungs Clear, Normal Breath Sounds Cardiovascular: Regular Rate, Rhythm Results/Procedures Lab Laboratory Tests 07/19/23 05:15 Patient resulted labs reviewed. Assessment/Plan Assessment and Plan Assess & Plan/Chief Complaint Assessment: Complicated multidrug-resistant UTI G-tube dependent half-way patient Advanced age Severe debility Left AKA Plan: Supportive care IV antibiotics Swing bed MAURICIO KHAN DO Jul 19, 2023 06:56
[2023-07-19 07:28] VITALS: BP 111/56
[2023-07-19] MEDS: ASPIRIN 81 MG CHEWABLE TABLET PO SCH (10:13)
[2023-07-19] MEDS: POTASSIUM CHLORIDE 20 MEQ TABLET PO SCH ×2 (10:13→21:44)
[2023-07-19] MEDS: ARIPiprazole 10 MG TABLET GT SCH (10:13)
[2023-07-19] MEDS: AMIODARONE 200 MG TABLET GT SCH (10:13)
[2023-07-19] MEDS: FLUoxetine 20 MG CAPSULE GT SCH (10:14)
[2023-07-19] MEDS ORDERED: CHOLESTYRAMINE LITE 4 GM PACKET PO SCH (11:30)
[2023-07-19 12:15] VITALS: BP 133/78
[2023-07-19 16:12] VITALS: BP 140/65
[2023-07-19 20:17] VITALS: BP 168/80
[2023-07-19] MEDS: QUEtiapine IMMEDIATE RELEASE 25 MG TABLET PO SCH (21:26)
[2023-07-19] MEDS: CHOLESTYRAMINE LITE 4 GM PACKET PO SCH (22:42)
[2023-07-20 00:10] VITALS: BP 118/57
[2023-07-20] MEDS: AMPICILLIN (IV) 1,000 MG in NS (IVPB) 50 ML 50 ML IV SCH ×2 (02:33→09:31)
[2023-07-20 03:43] VITALS: BP 118/58
[2023-07-20 04:12] LABS: BASOPHILS # (AUTO) 0.1 10^3/uL (0.0-0.1); BASOPHILS % (AUTO) 0 % (0-10); EOSINOPHILS # (AUTO) 0.1 10^3/uL (0.0-0.3); EOSINOPHILS % (AUTO) 0 % (0-10); HEMATOCRIT 29 % (35-52); HEMOGLOBIN 9.2 g/dL (11.5-16.0); LYMPHOCYTES # (AUTO) 1.4 10^3/uL (1.0-4.0); LYMPHOCYTES % (AUTO) 10 % (12-44); MEAN CORPUSCULAR HEMOGLOBIN 27 pg (25-34); MEAN CORPUSCULAR HGB CONC 32 g/dL (32-36); MEAN CORPUSCULAR VOLUME 86 fL (80-99); MONOCYTES % (AUTO) 7 % (0-12); NEUTROPHILS % (AUTO) 82 % (42-75); PLATELET COUNT 261 10^3/uL (130-400); WHITE BLOOD COUNT 14.6 10^3/uL (4.3-11.0)
[2023-07-20] MEDS: ENOXAPARIN 100 MG/1 ML SYRINGE SC SCH (04:23)
[2023-07-20 04:48] LABS: ALBUMIN 3.1 GM/DL (3.2-4.5); BILIRUBIN,TOTAL 0.4 MG/DL (0.1-1.0); CALCIUM 8.1 MG/DL (8.5-10.1); CREATININE SERUM 0.79 MG/DL (0.60-1.30); POTASSIUM 4.3 MMOL/L (3.6-5.0); TOTAL PROTEIN 6.6 GM/DL (6.4-8.2)
[2023-07-20] MEDS: FUROSEMIDE 40 MG TABLET PO SCH (05:12)
[2023-07-20] MEDS: LEVOTHYROXINE 112 MCG TABLET GT SCH (05:12)
[2023-07-20] MEDS: CATHETER FLUSH 10 ML SYR IVP SCH (05:13)
[2023-07-20] MEDS: D5 1/2NS + KCL 40 MEQ/L 1000ML 1,000 ML IV SCH (05:13)
[2023-07-20 05:23] LABS: EOSINOPHILS % (MANUAL) 3 %; LYMPHOCYTES % (MANUAL) 11 %; MONOCYTES % (MANUAL) 4 %; NEUTROPHILS % (MANUAL) 82 %; RBC MORPH NORMAL
[2023-07-20] MEDS: PANTOPRAZOLE 2 MG/ML LIQUID 200 ML (PROTONIX) GT SCH ×3 (06:21)
[2023-07-20] MEDS: HYDROXYCHLOROQUINE 200 MG TABLET GT SCH (06:21)
[2023-07-20 07:57] VITALS: BP 152/69
--- NOTE | 2023-07-20 08:52 | Cardiology Progress Note ---
Subjective Date Seen by Provider: Jul 20, 2023 Time Seen by Provider: 08:50 Subjective/Events-last exam Patient was seen at bedside, laying down comfortably. No new complain Objective-Cardiology Exam Last Set of Vital Signs Vital Signs 07/20/23 07:57 Temp 36.5 Pulse 70 Resp 18 B/P (MAP) 152/69 (96) Pulse Ox 97 O2 Delivery Nasal Cannula O2 Flow Rate 2.00 I&O Intake and Output 07/20/23 00:00 Intake Total 2248 ml Output Total 2500 ml Balance -252 ml Intake Oral 0 ml Tube Feeding 400 ml Other 1848 ml Output Urine Total 2500 ml # Bowel Movements 12 General: Alert, Cooperative HEENT: Atraumatic, PERRLA Neck: Supple Lungs: Clear to Auscultation, Normal Air Movement Heart: Regular Rate, Normal S1, Normal S2 Abdomen: Normal Bowel Sounds Neuro: Normal Speech Psych/Mental Status: Mood NL Results Lab Laboratory Tests 07/20/23 04:05 A/P-Cardiology Admission Diagnosis Congestive heart failure Atrial fibrillation Hypertension UTI Assessment/Plan Shortness of breath, acute decompensated left ventricular diastolic dysfunction Normal systolic function Better at this time. 2D Echo done 07/13/23 showing EF 65-70%. PA 15-20mmHg. Study not technically sufficient enough to evaluate LV diastolic function. Paroxysmal atrial fibrillation with left bundle branch block, back to sinus rhythm Started on Lovenox, will change to Eliquis Stop aspirin Abdominal pain, constipation, managed by medical team UTI, started on antibiotics, managed by medical team Hypokalemia, replace and continue to monitor. Questionable history of coronary artery disease. Initial troponin was minimally elevated, repeat troponin was normal. Continue medical management Hypothyroidism, elevated TSH Defer management to medical team History of left AKBARA ABBIE BERGER MD Jul 20, 2023 08:52
--- NOTE | 2023-07-20 08:57 | Progress Note - Hospitalist ---
Subjective HPI/CC On Admission Date Seen by Provider: Jul 20, 2023 Time Seen by Provider: 11:30 Objective Exam Vital Signs Vital Signs Date Time Temp Pulse Resp B/P (MAP) Pulse Ox O2 Delivery O2 Flow Rate FiO2 07/20/23 07:57 36.5 70 18 152/69 (96) 97 Nasal Cannula 2.00 Capillary Refill : Results/Procedures Lab Laboratory Tests 07/20/23 04:05 Patient resulted labs reviewed. Assessment/Plan Assessment and Plan Assess & Plan/Chief Complaint Assessment: Complicated multidrug-resistant UTI G-tube dependent group home patient Advanced age Severe debility Left AKA Plan: Supportive care IV antibiotics Swing bed MAURICIO KHAN DO Jul 20, 2023 08:57
[2023-07-20] MEDS ORDERED: APIXABAN 5 MG TABLET PO SCH (09:00)
[2023-07-20] MEDS: POTASSIUM CHLORIDE 20 MEQ TABLET PO SCH (09:30)
[2023-07-20] MEDS: FLUoxetine 20 MG CAPSULE GT SCH (09:30)
[2023-07-20] MEDS: ARIPiprazole 10 MG TABLET GT SCH (09:30)
[2023-07-20] MEDS: CHOLESTYRAMINE LITE 4 GM PACKET PO SCH (09:30)
[2023-07-20] MEDS: CEFTAZIDIME IV SCH (09:31)
[2023-07-20] MEDS: HYDROcodone/ACETAMINOPHEN 10/325 TABLET PO PRN (09:31)
[2023-07-20] MEDS: AVIBACTAM IV SCH (09:31)
[2023-07-20] MEDS: AMIODARONE 200 MG TABLET GT SCH (09:31)
[2023-07-20] MEDS: NS IV SCH (09:31)
[2023-07-20] MEDS ORDERED: AVIBACTAM IV SCH (10:00)
[2023-07-20] MEDS ORDERED: CEFTAZIDIME IV SCH (10:00)
[2023-07-20] MEDS ORDERED: NS IV SCH (10:00)
[2023-07-20] MEDS ORDERED: POTA20PA28 PO (10:46)
[2023-07-20] MEDS ORDERED: CHOL4PAC3 PO (10:46)
[2023-07-20] MEDS ORDERED: ARIP10TA55 PEG (10:46)
[2023-07-20] MEDS ORDERED: PANT40GR PEG (10:46)
[2023-07-20] MEDS ORDERED: FLUO20TA28 PEG (10:46)
[2023-07-20] MEDS ORDERED: APIX5TAB PEG (10:46)
[2023-07-20] MEDS ORDERED: QUET25TA35 PEG (10:46)
[2023-07-20] MEDS ORDERED: HYDR-3820 PEG (10:46)
[2023-07-20] MEDS ORDERED: LEVO112T55 PEG (10:46)
[2023-07-20] MEDS ORDERED: ONDA4TAB11 PEG (10:46)
[2023-07-20] MEDS ORDERED: HYDR200T71 PEG (10:46)
[2023-07-20] MEDS ORDERED: FURO40TA4 PEG (10:46)
[2023-07-20] MEDS ORDERED: LORA5TAB9 PEG (10:46)
[2023-07-20] MEDS ORDERED: PREG150C46 PEG (10:46)
[2023-07-20] MEDS ORDERED: ACET325T38 PEG (10:46)
[2023-07-20] MEDS ORDERED: PRAM0.128 PEG (10:46)
[2023-07-20] MEDS ORDERED: METO50TA7 PO (10:46)
[2023-07-20] MEDS ORDERED: ALBU2.5V4 NEB (10:46)
[2023-07-20] MEDS ORDERED: AMIO200T65 PEG (10:46)
[2023-07-20] MEDS ORDERED: LORAZ30SOL PEG (10:46)
--- NOTE | 2023-07-20 10:48 | Discharge Inst-Skilled Nursing ---
Discharge Inst-Skilled NF Reconcile Patient Problems Problems Reviewed?: Yes Patient Instructions Patient Problems: Debility UTI Consult/Follow Up/Orders Follow Up Appt.: PCP NH rounds Skilled NF Admit to: Via [facility] Certification ([facility]) I certify that SNF services are required to be given on an inpatient basis because of the above named patient's need for [facility] care on a continuing basis for the conditions(s) for which he/she was receiving inpatient hospital services prior to his/her transfer to the SNF. Fpc Facility Order: Nursing Services, Immigration Investigator-Evaluate & Treat, Physical Therapy-Evaluate & Treat Oxygen Delivery Method: Nasal Cannula Discharge Diet: Tube Feeding New & Resume Previous Orders New Medications: Potassium Chloride (Potassium Chloride) 20 Meq Packet 20 MEQ PO DAILY, #30 PACKET Apixaban (Eliquis) 5 Mg Tablet 5 MG PEG BID, #60 TAB Cholestyramine/Aspartame (Prevalite Packet) 4 Gram Powd.pack 4 GM PO TID, #60 EACH Furosemide (Furosemide) 40 Mg Tablet 40 MG PEG DAILY@07,17, #60 TAB Metoprolol Succinate (Metoprolol Succinate) 50 Mg Tab.er.24h 50 MG PO DAILY, #30 TAB Changed Medications: Acetaminophen (Tylenol) 325 Mg Tablet 650 MG PEG Q6H PRN for PAIN-MILD (1-4), #30 TAB (Medication details modified) Amiodarone HCl (Amiodarone HCl) 200 Mg Tablet 200 MG PEG DAILY, #30 TAB (Medication details modified) Aripiprazole (Aripiprazole) 10 Mg Tablet 10 MG PEG DAILY, #30 TAB (Medication details modified) Fluoxetine HCl (Fluoxetine HCl) 20 Mg Tablet 20 MG PEG DAILY, #30 TAB (Medication details modified) Hydrocodone/Acetaminophen (Hydrocodone-Acetamin 10-325 mg) 10 Mg-325 Mg Tablet 1 EA PEG QID, #15 TAB (Medication details modified) Hydroxychloroquine Sulfate (Hydroxychloroquine Sulfate) 200 Mg Tablet 200 MG PEG Q12H, #60 TAB (Medication details modified) Levothyroxine Sodium (Levothyroxine Sodium) 112 Mcg Tablet 112 MCG PEG DAILY, #30 TAB (Medication details modified) Loratadine (Claritin) 5 Mg Tab.rapdis 10 MG PEG DAILY, #60 TAB (Medication details modified) TAKES 2 (5MG) TABS Ondansetron (Ondansetron Odt) 4 Mg Tab.rapdis 4 MG PEG Q8H PRN for NAUSEA/VOMITING-1ST LINE, #10 TAB (Medication details modified) Pantoprazole Sodium (Pantoprazole Sodium) 40 Mg Granpkt.dr 40 MG PEG DAILY, #30 TAB (Medication details modified) Pramipexole Di-HCl (Pramipexole Dihydrochloride) 0.125 Mg Tablet 0.125 MG PEG HS, #30 TAB (Medication details modified) Pregabalin (Pregabalin) 150 Mg Capsule 150 MG PEG TID, #90 TAB (Medication details modified) Quetiapine Fumarate (Quetiapine Fumarate) 25 Mg Tablet 25 MG PEG HS, #30 TAB (Changed from: PO) Continued Medications: Albuterol Sulfate (Albuterol Sulfate) 2.5 Mg/3 Ml (0.083 %) Vial.neb 3 ML NEB Q6H PRN for SHORTNESS OF BREATH, #60 EA (This prescription has been renewed) Ascorbic Acid (Vitamin C) 500 Mg Tablet 500 MG PO BID, TAB Betamethasone Dipropionate (Betamethasone Dipropionate) 0.05 % Lotion 1 APPLIC TOP UD PRN for ECZEMA, EA Cholecalciferol (Vitamin D3) (Vitamin D3) 25 Mcg (1000 Unit) Tab.chew 25 MCG PO DAILY, TAB Fluticasone Propionate (Fluticasone Propionate) 50 Mcg/Actuation [place].susp 1 SPRAY NSEACH DAILY, EA L. Acidophilus/Bulgaricus (Floranex Tablet) 1 Million Cell Tablet 2 EACH TID, TAB Loperamide HCl (Loperamide) 2 Mg Capsule 2 MG Q12H, CAP Loperamide HCl (Loperamide) 2 Mg Tablet 2 MG DAILY PRN for LOOSE STOOLS, TAB Lorazepam (Lorazepam) 2 Mg/Ml Oral.conc 0.125 ML PEG Q8H, #30 ML (This prescription has been renewed) Melatonin (Melatonin) 3 Mg Tablet 3 MG HS PRN for SLEEP, TAB Multivitamin with Minerals (One Daily Plus Minerals) 1 Each Tablet 1 EACH DAILY, TAB Nystatin (Nystatin) 100,000 Unit/Gram Powder 1 APPLIC TOP Q12H, EA PERIWOUND Pseudoephedrine HCl (Children's Sudafed) 15 Mg/5 Ml Liquid 20 ML Q8H PRN for SINUS PAIN/PRESSURE, EA Psyllium Husk (with Sugar) (Metamucil Free Powder) 3 Gram/7 Gram Powder 7 GM BID, KACI Simethicone (Simethicone) 125 Mg Capsule 125 MG QID PRN for GAS, CAP Discontinued Medications: Furosemide (Furosemide) 40 Mg Tablet 40 MG DAILY, TAB [Potassium Chloride] () 20MEQ/15ML SOLN 15 ML BID, KACI Simmons Jul 20, 2023 10:46 MAURICIO SIMMONS DO Jul 20, 2023 10:48
--- NOTE | 2023-07-20 10:48 | Discharge Summary ---
Discharge Summary Hospital Course Was the Problem List Reviewed?: Yes Problems/Dx: (1) UTI (urinary tract infection) Status: Acute (2) Above knee amputation of left lower extremity Status: Acute Hospital Course Date of Admission: Jul 16, 2023 at 12:45 Admission Diagnosis : Family Physician/Provider: Di Pagan Date of Discharge: 07/20/23 Discharge Diagnosis: [ ] Hospital Course: Lengthy course after she was admitted for sepsis due to resistant UTI. IV abx maintained and completed while on SB. G-tube maintained for nutrition due to dysphagia. No events during SB course. Labs and Pending Lab Test: Laboratory Tests 07/20/23 04:05: White Blood Count 14.6H, Red Blood Count 3.36L, Hemoglobin 9.2L, Hematocrit 29L, Mean Corpuscular Volume 86, Mean Corpuscular Hemoglobin 27, Mean Corpuscular Hemoglobin Concent 32, Red Cell Distribution Width 15.9H, Platelet Count 261, Mean Platelet Volume 11.0, Immature Granulocyte % (Auto) 1, Neutrophils (%) (Auto) 82H, Lymphocytes (%) (Auto) 10L, Monocytes (%) (Auto) 7, Eosinophils (%) (Auto) 0, Basophils (%) (Auto) 0, Neutrophils # (Auto) 12.0H, Lymphocytes # (Auto) 1.4, Monocytes # (Auto) 1.0, Eosinophils # (Auto) 0.1, Basophils # (Auto) 0.1, Immature Granulocyte # (Auto) 0.1, Neutrophils % (Manual) 82, Lymphocytes % (Manual) 11, Monocytes % (Manual) 4, Eosinophils % (Manual) 3, Blood Morphology Comment NORMAL, Sodium Level 138, Potassium Level 4.3, Chloride Level 103, Carbon Dioxide Level 25, Anion Gap 10, Blood Urea Nitrogen 16, Creatinine 0.79, Estimat Glomerular Filtration Rate 79, BUN/Creatinine Ratio 20, Glucose Level 142H, Calcium Level 8.1L, Corrected Calcium 8.8, Total Bilirubin 0.4, Aspartate Amino Transf (AST/SGOT) 24, Alanine Aminotransferase (ALT/SGPT) 32, Alkaline Phosphatase 106, Total Protein 6.6, Albumin 3.1L Home Meds Active Potassium Chloride 20 Meq Packet 20 Meq PO DAILY Furosemide 40 Mg Tablet 40 Mg PEG DAILY@, Metoprolol Succinate 50 Mg Tab.er.24h 50 Mg PO DAILY Prevalite Packet (Cholestyramine/Aspartame) 4 Gram Powd.pack 4 Gm PO TID Eliquis (Apixaban) 5 Mg Tablet 5 Mg PEG BID Lorazepam 2 Mg/Ml Oral.conc 0.125 Ml PEG Q8H Fluoxetine HCl 20 Mg Tablet 20 Mg PEG DAILY Claritin (Loratadine) 5 Mg Tab.rapdis 10 Mg PEG DAILY TAKES 2 (5MG) TABS Albuterol Sulfate 2.5 Mg/3 Ml (0.083 %) Vial.neb 3 Ml NEB Q6H PRN Amiodarone HCl 200 Mg Tablet 200 Mg PEG DAILY Quetiapine Fumarate 25 Mg Tablet 25 Mg PEG HS Hydroxychloroquine Sulfate 200 Mg Tablet 200 Mg PEG Q12H Levothyroxine Sodium 112 Mcg Tablet 112 Mcg PEG DAILY Ondansetron Odt (Ondansetron) 4 Mg Tab.rapdis 4 Mg PEG Q8H PRN Pramipexole Dihydrochloride (Pramipexole Di-HCl) 0.125 Mg Tablet 0.125 Mg PEG HS Pantoprazole Sodium 40 Mg Granpkt.dr 40 Mg PEG DAILY Tylenol (Acetaminophen) 325 Mg Tablet 650 Mg PEG Q6H PRN Hydrocodone-Acetamin 10-325 mg (Hydrocodone/Acetaminophen) 10 Mg-325 Mg Tablet 1 Ea PEG QID Pregabalin 150 Mg Capsule 150 Mg PEG TID Aripiprazole 10 Mg Tablet 10 Mg PEG DAILY Reported Betamethasone Dipropionate 0.05 % Lotion 1 Applic TOP UD PRN Children's Sudafed (Pseudoephedrine HCl) 15 Mg/5 Ml Liquid 20 Ml Q8H PRN Simethicone 125 Mg Capsule 125 Mg QID PRN Nystatin 100,000 Unit/Gram Powder 1 Applic TOP Q12H PERIWOUND Fluticasone Propionate 50 Mcg/Actuation [place].susp 1 [place] NSEACH DAILY Vitamin C (Ascorbic Acid) 500 Mg Tablet 500 Mg PO BID [Potassium Chloride] 20MEQ/15ML Soln 15 Ml BID One Daily Plus Minerals (Multivitamin with Minerals) 1 Each Tablet 1 Each DAILY Furosemide 40 Mg Tablet 40 Mg DAILY Floranex Tablet (L. Acidophilus/Bulgaricus) 1 Million Cell Tablet 2 Each TID Melatonin 3 Mg Tablet 3 Mg HS PRN Vitamin D3 (Cholecalciferol (Vitamin D3)) 25 Mcg (1000 Unit) Tab.chew 25 Mcg PO DAILY Metamucil Free Powder (Psyllium Husk (with Sugar)) 3 Gram/7 Gram Powder 7 Gm BID Loperamide (Loperamide HCl) 2 Mg Tablet 2 Mg DAILY PRN Loperamide (Loperamide HCl) 2 Mg Capsule 2 Mg Q12H Assessment/Pt Instructions PCP NH rounds Discharge Planning: <30 minutes discharge planning Discharge Instructions Discharge Diet: Tube Feeding Discharge Physical Examination Vital Signs Vital Signs Date Time Temp Pulse Resp B/P (MAP) Pulse Ox O2 Delivery O2 Flow Rate FiO2 07/20/23 07:57 36.5 70 18 152/69 (96) 97 Nasal Cannula 2.00 General Appearance: No Apparent Distress, WD/WN Allergies: Coded Allergies: cephalexin (Verified Allergy, Unknown, 07/12/23) codeine (Verified Allergy, Unknown, 07/12/23) latex (Unverified Allergy, Unknown, 12/10/22) morphine (Verified Allergy, Unknown, 07/12/23) Discharge Summary Date of Admission Jul 16, 2023 at 12:45 Date of Discharge Discharge Date: Jul 20, 2023 Discharge Diagnosis Assessment: Complicated multidrug-resistant UTI G-tube dependent longterm patient Advanced age Severe debility Left AKA Plan: Supportive care IV antibiotics Swing bed MAURICIO KHAN DO Jul 20, 2023 10:48
[2023-07-20 12:05] VITALS: BP 161/74
[2023-07-20 12:56] VITALS: BP 161/74
== END 2023-07-20 12:42 | DRG 690 ==
LOC: 4TH 12:45
PROVIDERS: ADMIT Internal Medicine; ATTEND Internal Medicine
DX: N39.0 Urinary tract infection, site not specified (principal); Z16.24 Resistance to multiple antibiotics; I50.32 Chronic diastolic (congestive) heart failure; R13.10 Dysphagia, unspecified; Z93.1 Gastrostomy status; I48.0 Paroxysmal atrial fibrillation; I44.7 Left bundle-branch block, unspecified; K59.00 Constipation, unspecified; Z66 Do not resuscitate; E87.6 Hypokalemia; E03.9 Hypothyroidism, unspecified; Z89.612 Acquired absence of left leg above knee
CPT/HCPCS: 36415; 80053; 85007; 85025; 85027; 94760

== ENCOUNTER → 2023-07-28 | Outpatient (CLI) | payer MEDICARE, MEDICAID ==
[~2023-07-28] MED LIST changes: +ACET325T38 PEG; +AMIO200T65 PEG; +APIX5TAB PEG; +ARIP10TA55 PEG; +CHOL4PAC3 PO; +FLUO20TA28 PEG; +FURO40TA4 PEG; +HYDR-3820 PEG; +HYDR200T71 PEG; +LEVO112T55 PEG; +LORA5TAB9 PEG; +METO50TA7 PO; +ONDA4TAB11 PEG; +PANT40GR PEG; +POTA20PA28 PO; +PRAM0.128 PEG; +PREG150C46 PEG; +QUET25TA35 PEG
== END ==
LOC: WOUNDCARE 13:02
PROVIDERS: ATTEND Family Medicine
DX: T81.31XA Disruption of external operation (surgical) wound, not elsewhere classified, initial encounter (principal); D46.4 Refractory anemia, unspecified; E66.01 Morbid (severe) obesity due to excess calories; Z68.41 Body mass index [BMI] 40.0-44.9, adult; E44.0 Moderate protein-calorie malnutrition; E55.9 Vitamin D deficiency, unspecified; M35.00 Sjogren syndrome, unspecified; T87.89 Other complications of amputation stump; J96.01 Acute respiratory failure with hypoxia
CPT/HCPCS: 99212

== ENCOUNTER 2023-08-06 10:36 | Emergency (ER) | payer MEDICARE, MEDICAID ==
[~2023-08-06] VITALS: Ht 170 cm; Wt 112.0 kg
--- NOTE | 2023-08-06 10:40 | ED Abdominal Pain ---
General Stated Complaint: SOB | ABD PAIN History of Present Illness Date Seen by Provider: Aug 06, 2023 Time Seen by Provider: 10:40 Initial Comments 72-year-old female [facility]. Patient's complaint upon arrival to the ER was abdominal pain. longterm was concerned for maybe some shortness of breath however no significant shortness of breath per patient. Patient has had a normal bowel movement yesterday with some diarrhea which is normal for her. Patient's abdominal pain is located in the mid to lower abdomen. She does feel bloated. Allergies and Home Medications Allergies Coded Allergies: cephalexin (Verified Allergy, Unknown, 07/12/23) codeine (Verified Allergy, Unknown, 07/12/23) latex (Unverified Allergy, Unknown, 12/10/22) morphine (Verified Allergy, Unknown, 07/12/23) Patient Home Medication List Home Medication List Reviewed: Yes Acetaminophen (Tylenol) 325 Mg Tablet, 650 MG PEG Q6H PRN for PAIN-MILD (1-4) Prescribed by: MAURICIO KHAN on 07/20/23 1046 Albuterol Sulfate (Albuterol Sulfate) 2.5 Mg/3 Ml (0.083 %) Vial.neb, 3 ML NEB Q6H PRN for SHORTNESS OF BREATH Prescribed by: MAURICIO KHAN on 07/20/23 104 Amiodarone HCl (Amiodarone HCl) 200 Mg Tablet, 200 MG PEG DAILY Prescribed by: MAURICIO KHAN on 07/20/23 1046 Apixaban (Eliquis) 5 Mg Tablet, 5 MG PEG BID Prescribed by: MAURICIO KHAN on 07/20/23 1046 Aripiprazole (Aripiprazole) 10 Mg Tablet, 10 MG PEG DAILY Prescribed by: MAURICIO KHAN on 07/20/23 1046 Ascorbic Acid (Vitamin C) 500 Mg Tablet, 500 MG PO BID, (Reported) Entered as Reported by: MACY RODRIGUEZ on 07/13/23 151 Betamethasone Dipropionate (Betamethasone Dipropionate) 0.05 % Lotion, 1 APPLIC TOP UD PRN for ECZEMA, (Reported) Entered as Reported by: MACY RODRIGUEZ on 07/13/23 151 Cholecalciferol (Vitamin D3) (Vitamin D3) 25 Mcg (1000 Unit) Tab.chew, 25 MCG PO DAILY, (Reported) Entered as Reported by: MACY RODRIGUEZ on 07/13/231515 Cholestyramine/Aspartame (Prevalite Packet) 4 Gram Powd.pack, 4 GM PO TID Prescribed by: MAURICIO KHAN on 07/20/231045 Fluoxetine HCl (Fluoxetine HCl) 20 Mg Tablet, 20 MG PEG DAILY Prescribed by: MAURICIO KHAN on 07/20/231045 Fluticasone Propionate (Fluticasone Propionate) 50 Mcg/Actuation [place].susp, 1 SPRAY NSEACH DAILY, (Reported) Entered as Reported by: MACY RODRIGUEZ on 07/13/231515 Furosemide (Furosemide) 40 Mg Tablet, 40 MG PEG DAILY@,17 Prescribed by: MAURICIO KHAN on 07/20/23 104 Hydrocodone/Acetaminophen (Hydrocodone-Acetamin 10-325 mg) 10 Mg-325 Mg Tablet, 1 EA PEG QID Prescribed by: MAURICIO KHAN on 07/20/231045 Hydroxychloroquine Sulfate (Hydroxychloroquine Sulfate) 200 Mg Tablet, 200 MG PEG Q12H Prescribed by: MAURICIO KHAN on 07/20/231045 L. Acidophilus/Bulgaricus (Floranex Tablet) 1 Million Cell Tablet, 2 EACH TID, (Reported) Entered as Reported by: MACY RODRIGUEZ on 07/13/231515 Levothyroxine Sodium (Levothyroxine Sodium) 112 Mcg Tablet, 112 MCG PEG DAILY Prescribed by: MAURICIO KHAN on 07/20/231045 Loperamide HCl (Loperamide) 2 Mg Capsule, 2 MG Q12H, (Reported) Entered as Reported by: MACY RODRIGUEZ on 07/13/231515 Loperamide HCl (Loperamide) 2 Mg Tablet, 2 MG DAILY PRN for LOOSE STOOLS, (Reported) Entered as Reported by: MACY RODRIGUEZ on 07/13/231515 Loratadine (Claritin) 5 Mg Tab.rapdis, 10 MG PEG DAILY Prescribed by: MAURICIO KHAN on 07/20/231045 Lorazepam (Lorazepam) 2 Mg/Ml Oral.conc, 0.125 ML PEG Q8H Prescribed by: MAURICIO KHAN on 07/20/231045 Melatonin (Melatonin) 3 Mg Tablet, 3 MG HS PRN for SLEEP, (Reported) Entered as Reported by: MACY RODRIGUEZ on 07/13/23 151 Metoprolol Succinate (Metoprolol Succinate) 50 Mg Tab.er.24h, 50 MG PO DAILY Prescribed by: MAURICIO KHAN on 07/20/23 104 Multivitamin with Minerals (One Daily Plus Minerals) 1 Each Tablet, 1 EACH DAILY, (Reported) Entered as Reported by: MACY RODRIGUEZ on 07/13/23 1516 Nitrofurantoin Macrocrystal (Nitrofurantoin) 100 Mg Capsule, 100 MG PO BID Prescribed by: THIEN SARAH on 08/06/23 1254 Nystatin (Nystatin) 100,000 Unit/Gram Powder, 1 APPLIC TOP Q12H, (Reported) Entered as Reported by: MACY RODRIGUEZ on 07/13/23 151 Ondansetron (Ondansetron Odt) 4 Mg Tab.rapdis, 4 MG PEG Q8H PRN for NAUSEA/VOMITING-1ST LINE Prescribed by: MAURICIO KHAN on 07/20/23 1046 Pantoprazole Sodium (Pantoprazole Sodium) 40 Mg Granpkt.dr, 40 MG PEG DAILY Prescribed by: MAURICIO KHAN on 07/20/23 1046 Polyethylene Glycol 3350 (Miralax) 17 Gram/Dose Powder, 119 GM FEEDING TID Prescribed by: THIEN SARAH on 08/06/23 1254 Potassium Chloride (Potassium Chloride) 20 Meq Packet, 20 MEQ PO DAILY Prescribed by: MAURICIO KHAN on 07/20/23 104 Pramipexole Di-HCl (Pramipexole Dihydrochloride) 0.125 Mg Tablet, 0.125 MG PEG HS Prescribed by: MAURICIO KHAN on 07/20/23 104 Pregabalin (Pregabalin) 150 Mg Capsule, 150 MG PEG TID Prescribed by: MAURICIO KHAN on 07/20/23 1046 Pseudoephedrine HCl (Children's Sudafed) 15 Mg/5 Ml Liquid, 20 ML Q8H PRN for SINUS PAIN/PRESSURE, (Reported) Entered as Reported by: MACY RODRIGUEZ on 07/13/23 151 Psyllium Husk (with Sugar) (Metamucil Free Powder) 3 Gram/7 Gram Powder, 7 GM BID, (Reported) Entered as Reported by: MACY RODRIGUEZ on 07/13/23 1516 Quetiapine Fumarate (Quetiapine Fumarate) 25 Mg Tablet, 25 MG PEG HS Prescribed by: MAURICIO KHAN on 07/20/23 1046 Simethicone (Simethicone) 125 Mg Capsule, 125 MG QID PRN for GAS, (Reported) Entered as Reported by: MACY RODRIGUEZ on 07/13/23 1516 Review of Systems Review of Systems Constitutional: No chills, No fever Respiratory: See HPI Cardiovascular: No Symptoms Reported Gastrointestinal: No Symptoms Reported, Abdomen Distended, Abdominal Pain, Nausea Genitourinary: No Symptoms Reported Skin: no symptoms reported Psychiatric/Neurological: No Symptoms Reported Past Iknxzqr-Epcgjq-Kqqyaa Hx Past Medical History Surgery/Hospitalization HX: HTN, Amp left leg AK, Surgeries: Yes Gallbladder, Hysterectomy, Orthopedic Respiratory: Yes Chronic Bronchitis Cardiac: Yes Chronic Edema/Swelling, Coronary Artery Disease Neurological: No Genitourinary: Yes Gastrointestinal: Yes Gastroesophageal Reflux Musculoskeletal: Yes Amputee Endocrine: Yes Hypothyroidsim Family Medical History No Pertinent Family Hx Physical Exam Vital Signs Vital Signs - First Documented 08/06/23 10:40 Temp 36.7 Pulse 67 Resp 18 B/P (MAP) 136/84 (101) Pulse Ox 97 O2 Delivery Nasal Cannula O2 Flow Rate 2.00 Capillary Refill : Height/Weight/BMI Height: '" Weight: lbs. oz. kg; 35.22 BMI Method: General Appearance: no apparent distress, obese Respiratory: lungs clear, normal breath sounds Cardiovascular: normal peripheral pulses, regular rate, rhythm Gastrointestinal: distended; No guarding; tenderness, other (PEG tube in place) Genital/Rectal: other (Chronic indwelling Bal catheter in place) Extremities: other (Left AKA) Neurologic/Psychiatric: alert, other (At baseline) Skin: normal color, warm/dry Progress/Results/Core Measures Results/Orders Lab Results Laboratory Tests Test 08/06/23 11:00 08/06/23 11:06 Range/Units White Blood Count 10.9 4.3-11.0 10^3/uL Red Blood Count 3.41 L 3.80-5.11 10^6/uL Hemoglobin 10.0 L 11.5-16.0 g/dL Hematocrit 33 L 35-52 % Mean Corpuscular Volume 96 80-99 fL Mean Corpuscular Hemoglobin 29 25-34 pg Mean Corpuscular Hemoglobin Concent 31 L 32-36 g/dL Red Cell Distribution Width 20.7 H 10.0-14.5 % Platelet Count 150 130-400 10^3/uL Mean Platelet Volume 12.0 9.0-12.2 fL Immature Granulocyte % (Auto) 1 % Neutrophils (%) (Auto) 82 H 42-75 % Lymphocytes (%) (Auto) 8 L 12-44 % Monocytes (%) (Auto) 7 0-12 % Eosinophils (%) (Auto) 2 0-10 % Basophils (%) (Auto) 0 0-10 % Neutrophils # (Auto) 9.0 H 1.8-7.8 10^3/uL Lymphocytes # (Auto) 0.8 L 1.0-4.0 10^3/uL Monocytes # (Auto) 0.8 0.0-1.0 10^3/uL Eosinophils # (Auto) 0.2 0.0-0.3 10^3/uL Basophils # (Auto) 0.0 0.0-0.1 10^3/uL Immature Granulocyte # (Auto) 0.1 0.0-0.1 10^3/uL Sodium Level 140 135-145 MMOL/L Potassium Level 4.4 3.6-5.0 MMOL/L Chloride Level 103 98-107 MMOL/L Carbon Dioxide Level 27 21-32 MMOL/L Anion Gap 10 5-14 MMOL/L Blood Urea Nitrogen 42 H 7-18 MG/DL Creatinine 0.71 0.60-1.30 MG/DL Estimat Glomerular Filtration Rate 90 BUN/Creatinine Ratio 59 Glucose Level 107 H 70-105 MG/DL Calcium Level 8.6 8.5-10.1 MG/DL Corrected Calcium 9.1 8.5-10.1 MG/DL Magnesium Level 2.6 H 1.6-2.4 MG/DL Total Bilirubin 0.4 0.1-1.0 MG/DL Aspartate Amino Transf (AST/SGOT) 23 5-34 U/L Alanine Aminotransferase (ALT/SGPT) 32 0-55 U/L Alkaline Phosphatase 195 H 40-136 U/L C-Reactive Protein High Sensitivity 6.83 H 0.00-0.50 MG/DL Total Protein 7.7 6.4-8.2 GM/DL Albumin 3.4 3.2-4.5 GM/DL Lipase 7 L 8-78 U/L Urine Color YELLOW Urine Clarity SL CLOUDY Urine pH 6.0 5-9 Urine Specific Jet 1.015 L 1.016-1.022 Urine Protein 2+ H NEGATIVE Urine Glucose (UA) NEGATIVE NEGATIVE Urine Ketones NEGATIVE NEGATIVE Urine Nitrite POSITIVE H NEGATIVE Urine Bilirubin NEGATIVE NEGATIVE Urine Urobilinogen 0.2 < = 1.0 MG/DL Urine Leukocyte Esterase 3+ H NEGATIVE Urine RBC (Auto) 2+ H NEGATIVE Urine RBC 2-5 H /HPF Urine WBC 5-10 H /HPF Urine Crystals PRESENT H /LPF Urine Calcium Oxalate Crystals RARE H /LPF Urine Bacteria LARGE H /HPF Urine Casts NONE /LPF Urine Mucus NEGATIVE /LPF Urine Culture Indicated YES My Orders Orders - LISA SARAHVOR L DO Cbc And Automated Diff (08/06/23 10:42) Comprehensive Metabolic Panel (08/06/23 10:42) Hs C Reactive Protein (08/06/23 10:42) Lipase (08/06/23 10:42) Magnesium (08/06/23 10:42) Ua Culture If Indicated (08/06/23 10:42) Chest 1 View, Ap/Pa Only (08/06/23 10:42) Abdomen/Kub 1view (08/06/23 10:42) Urine Culture (08/06/23 11:06) Ct Abdomen/Pelvis W (08/06/23 11:30) Iohexol Injection (Omnipaque 350 Mg/Ml 1 (08/06/23 11:45) Received Contrast (Hold Metformin- Contr (08/06/23 11:45) Ns (Ivpb) 100 Ml (Sodium Chloride 0.9% 1 (08/06/23 11:45) Medications Given in ED Current Medications Medications Dose Ordered Sig/Angely Route Start Time Stop Time Status Last Admin Dose Admin Iohexol 100 ml ONCE ONCE IV 08/06/23 11:45 08/06/23 11:46 DC 08/06/23 11:49 100 ML Sodium Chloride 100 ml ONCE ONCE IV 08/06/23 11:45 08/06/23 11:46 DC 08/06/23 11:49 80 ML Vital Signs/I&O 08/06/23 10:40 Temp 36.7 Pulse 67 Resp 18 B/P (MAP) 136/84 (101) Pulse Ox 97 O2 Delivery Nasal Cannula O2 Flow Rate 2.00 Progress Progress Note : Progress Note Patient's diagnostic studies were ordered reviewed and interpreted by me. Does have an indwelling Bal however her urine is concerning for urinary tract infection so we will treat her with Macrobid for 5 days. Patient's chest x-ray shows some pulmonary edema that appears to be developing. She is currently on Lasix 40 mg twice a day. Recommended that she increase that to Lasix 80 and 40 in the morning or 80 twice a day. 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 Patient's x-ray was obtained and was concerning for abnormality however CT she has constipation appears to be chronic. I will prescribe her MiraLAX 3 times a day for this. Patient's labs showed no acute findings. [facility]. She will be transferred via EMS. Departure Impression Primary Impression: UTI (urinary tract infection) Qualified Codes: N30.01 - Acute cystitis with hematuria Additional Impressions: Constipation Qualified Codes: K59.00 - Constipation, unspecified Pulmonary edema Qualified Codes: J81.0 - Acute pulmonary edema Disposition: HOME, SELF-CARE Condition: Stable Departure-Patient Inst. Referrals: [facility]MANU[facility]ILLA (PCP/Family) Primary Care Physician Patient Instructions: Constipation, Adult ED, Urinary Tract Infection, Adult ED, Heart Failure ED Add. Discharge Instructions: Please increase Lasix to 80 mg instead of 40 mg dose for 3 days. 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 Scripts Polyethylene Glycol 3350 (Miralax) 17 Gram/Dose Powder 119 GM FEEDING TID, #1 EA Prov: THIEN SARAH DO 08/06/23 Nitrofurantoin Macrocrystal (Nitrofurantoin) 100 Mg Capsule 100 MG PO BID for 5 Days, #10 CAP 0 Refills Prov: ALIRIO SARAHR L DO 08/06/23 ALIRIO SARAHR Darrell DO Aug 06, 2023 10:40
[2023-08-06 11:14] LABS: BASOPHILS % (AUTO) 0 % (0-10); EOSINOPHILS # (AUTO) 0.2 10^3/uL (0.0-0.3); EOSINOPHILS % (AUTO) 2 % (0-10); HEMATOCRIT 33 % (35-52); LYMPHOCYTES # (AUTO) 0.8 10^3/uL (1.0-4.0); LYMPHOCYTES % (AUTO) 8 % (12-44); MEAN CORPUSCULAR HEMOGLOBIN 29 pg (25-34); MEAN CORPUSCULAR HGB CONC 31 g/dL (32-36); MEAN CORPUSCULAR VOLUME 96 fL (80-99); MONOCYTES # (AUTO) 0.8 10^3/uL (0.0-1.0); MONOCYTES % (AUTO) 7 % (0-12); NEUTROPHILS % (AUTO) 82 % (42-75); PLATELET COUNT 150 10^3/uL (130-400); WHITE BLOOD COUNT 10.9 10^3/uL (4.3-11.0)
[2023-08-06 11:24] LABS: ALBUMIN 3.4 GM/DL (3.2-4.5); POTASSIUM 4.4 MMOL/L (3.6-5.0)
[2023-08-06 11:25] LABS: BACTERIA,URINE LARGE /HPF; BILIRUBIN,URINE NEGATIVE (NEGATIVE); CLARITY,URINE SL CLOUDY; COLOR,URINE YELLOW; GLUCOSE, URINE (UA) NEGATIVE (NEGATIVE); KETONES,URINE NEGATIVE (NEGATIVE); LEUKOCYTE ESTERASE ,URINE 3+ (NEGATIVE); NITRITE,URINE POSITIVE (NEGATIVE); PROTEIN,URINE 2+ (NEGATIVE)
[2023-08-06 11:25] LABS: CALCIUM 8.6 MG/DL (8.5-10.1)
[2023-08-06 11:26] LABS: CALCIUM OXALATE CRYSTALS,UR RARE /LPF
[2023-08-06 11:26] LABS: TOTAL PROTEIN 7.7 GM/DL (6.4-8.2)
[2023-08-06 11:28] LABS: BILIRUBIN,TOTAL 0.4 MG/DL (0.1-1.0)
[2023-08-06 11:30] LABS: CREATININE SERUM 0.71 MG/DL (0.60-1.30)
[2023-08-06 11:33] LABS: MAGNESIUM 2.6 MG/DL (1.6-2.4)
[2023-08-06] MEDS ORDERED: HOLD METFORMIN - RECEIVED CONTRAST 20 ML VIAL IV SCH (11:45)
[2023-08-06] MEDS ORDERED: NS 100 ML (IVPB) BAG IV ONE (11:45)
[2023-08-06] MEDS ORDERED: IOHEXOL 350 MG/ML 100 ML (OMNIPAQUE 350) VIAL IV ONE (11:45)
--- NOTE | 2023-08-06 11:45 | Diagnostic Imaging Report ---
INDICATION: Dyspnea. Single AP view of chest is obtained with comparison made study of 07/15/2023. There has been increase in cardiomegaly and pulmonary venous congestion. There is increased density in the perihilar regions with prominent interstitial markings likely due to pulmonary edema. No pneumothorax is seen. There may be mild pleural fluid. IMPRESSION: Findings are suggestive of developing congestive heart failure with pulmonary edema and probable pleural fluid, greater on the left. Dictated by: Dictated on workstation # [id number]
--- NOTE | 2023-08-06 11:46 | Diagnostic Imaging Report ---
ABDOMEN/KUB 1 VIEW INDICATION: Abdominal pain. COMPARISON: None available. TECHNIQUE: AP view of the abdomen. FINDINGS: Large gas-filled structure within the midline of the pelvis may represent a portion of the sigmoid colon with a volvulus. The remainder of the colon is not significantly dilated. No features of free intraperitoneal air. There is a potential percutaneous gastrostomy tube in place. IMPRESSION: Radiographic features raise a possibility of sigmoid volvulus. CT of the abdomen and pelvis with IV contrast is suggested for further assessment. Dictated by: Dictated on workstation # [id number]
--- NOTE | 2023-08-06 12:02 | Diagnostic Imaging Report ---
EXAMINATION: CT abdomen and pelvis with intravenous contrast. TECHNIQUE: Multiple contiguous axial images were obtained through the abdomen and pelvis after the uneventful administration of intravenous contrast. All CT scans use one or more of the following dose optimizing techniques: automated exposure control, MA and/or KvP adjustment based on patient size and exam type or iterative reconstruction. HISTORY: Abdominal pain COMPARISON: None available. FINDINGS: Limited views of the lower thorax show moderate left pleural effusion and overlying atelectasis. There is mild edema in the right lung base. There is a small pericardial effusion. Liver is heterogeneous dysmorphic suggestive of developing cirrhosis. No suspicious liver lesion. There is no biliary ductal dilation. Gallbladder is not seen. Pancreas is normal. Spleen is normal. Adrenal glands are normal. The kidneys are normal. There is no hydronephrosis. Bladder is decompressed by Bal catheter. Sigmoid colon is distended with stool. Remainder of the bowel is normal in caliber. No bowel wall thickening. Gastric tube is present. There is body wall edema. No free fluid or air. No abdominal or pelvic lymphadenopathy. Aorta is normal in caliber without aneurysm. There are no suspicious osseus lesions. IMPRESSION: 1. Moderate left pleural effusion and pulmonary edema in the right lung base with small pericardial effusion. 2. Enlarged and dysmorphic liver concerning for developing cirrhosis. 3. Sigmoid colon is distended with stool but the remainder of the bowel is normal. Dictated by: Dictated on workstation # [id number]
[2023-08-06] MEDS ORDERED: POLY119P5 FEEDING (12:54)
[2023-08-06] MEDS ORDERED: NITR100C PO (12:54)
[2023-08-06 13:51] VITALS: BP 132/82
== END 2023-08-06 13:51 | disposition home or self-care (01) ==
LOC: EDUNIT# 10:36 → ER 10:37
DX: N39.0 Urinary tract infection, site not specified (principal); K59.00 Constipation, unspecified; J81.1 Chronic pulmonary edema; Z79.899 Other long term (current) drug therapy; Z93.1 Gastrostomy status; Z96.0 Presence of urogenital implants; Z91.040 Latex allergy status; Z88.1 Allergy status to other antibiotic agents
CPT/HCPCS: 36415; 71045; 74018; 74177; 80053; 81000; 83690; 83735; 85025; 86141; 87077; 87088; 87184

== ENCOUNTER 2023-08-28 07:33 | Inpatient (IN) | payer MEDICARE, MEDICAID ==
[~2023-08-28] VITALS: Ht 167.6 cm; Wt 114.0 kg
[~2023-08-28 07:33] MED LIST changes: -ACID1TAB; +ACID1TAB PEG; +ASCO500T17 PEG; -ASCO500T17 PO; +ASPI-1238 PO; +CARV6.252 PO; +CHOL10008 PEG; -CHOL10008 PO; +ERTA1VIA4 IJ; -LOPE2CAP; +LOPE2CAP PEG; -LOPE2TAB34; +LOPE2TAB34 PEG; -MELA3TAB39; +MELA3TAB39 PEG; -MULT-422; +MULT-422 PEG; +NITR100C PO; +POLY119P5 FEEDING; -PREG150C46; -PREG150C46 PEG; +PREG150C47; +PREG150C47 PEG; -PSEU15LI; +PSEU15LI PEG; -SIME125C78; +SIME125C78 PEG; +SUCR1TAB PO; -[UNRECOGNIZED DRUG - CODE]; +[UNRECOGNIZED DRUG - CODE] PEG
[2023-08-28 07:55] LABS: BASOPHILS # (AUTO) 0.1 10^3/uL (0.0-0.1); BASOPHILS % (AUTO) 1 % (0-10); EOSINOPHILS # (AUTO) 0.3 10^3/uL (0.0-0.3); EOSINOPHILS % (AUTO) 3 % (0-10); HEMATOCRIT 32 % (35-52); HEMOGLOBIN 9.7 g/dL (11.5-16.0); LYMPHOCYTES # (AUTO) 0.9 10^3/uL (1.0-4.0); LYMPHOCYTES % (AUTO) 9 % (12-44); MEAN CORPUSCULAR HEMOGLOBIN 28 pg (25-34); MEAN CORPUSCULAR HGB CONC 30 g/dL (32-36); MEAN CORPUSCULAR VOLUME 95 fL (80-99); MEAN PLATELET VOLUME 11.6 fL (9.0-12.2); MONOCYTES # (AUTO) 0.7 10^3/uL (0.0-1.0); MONOCYTES % (AUTO) 7 % (0-12); NEUTROPHILS # (AUTO) 7.7 10^3/uL (1.8-7.8); NEUTROPHILS % (AUTO) 80 % (42-75); PLATELET COUNT 190 10^3/uL (130-400); WHITE BLOOD COUNT 9.7 10^3/uL (4.3-11.0)
[2023-08-28 08:03] LABS: ALBUMIN 3.2 GM/DL (3.2-4.5); CHLORIDE 99 MMOL/L (98-107); SODIUM 145 MMOL/L (135-145)
[2023-08-28 08:05] LABS: CALCIUM 8.7 MG/DL (8.5-10.1)
[2023-08-28 08:06] LABS: GLUCOSE 143 MG/DL (70-105); TOTAL PROTEIN 7.5 GM/DL (6.4-8.2)
[2023-08-28 08:07] LABS: CARBON DIOXIDE 36 MMOL/L (21-32)
[2023-08-28 08:08] LABS: BILIRUBIN,TOTAL 0.4 MG/DL (0.1-1.0)
[2023-08-28 08:09] LABS: ALKALINE PHOSPHATASE 149 U/L (40-136); CREATININE SERUM 0.74 MG/DL (0.60-1.30); GFR ESTIMATED 86
[2023-08-28 08:10] LABS: BUN/CREATININE RATIO 72
[2023-08-28 08:12] LABS: ALANINE AMINOTRANSFERASE 33 U/L (0-55)
--- NOTE | 2023-08-28 08:26 | Diagnostic Imaging Report ---
INDICATION: Dyspnea. COMPARISON: 08/13/2023. DISCUSSION: Single portable upright view of the chest was obtained. Marked cardiomegaly is stable. Moderate left pleural effusion is stable. Central venous congestion is increased. Bilateral mixed interstitial and alveolar infiltrates are increased, likely moderate to severe pulmonary edema. No pneumothorax or osseous abnormality. IMPRESSION: 1. Cardiomegaly with worsening failure. Dictated by: Dictated on workstation # [id number]
[2023-08-28] MEDS ORDERED: FUROSEMIDE INJECTION 40 MG/4 ML VIAL IVP ONE (08:45)
[2023-08-28] MEDS ORDERED: cefTRIAXone IV/IM 1,000 MG in NS (IVPB) 50 ML 50 ML IV ONE (08:45)
--- NOTE | 2023-08-28 09:37 | ED Respiratory ---
General Chief Complaint: Respiratory Problems Stated Complaint: SOA Nursing Triage Note: PT TO [facility] BY [facility] WITH CC OF SOB, BREATHING TX GIVEN AT [facility] AND ANOTHER GIVEN BY EMS RUNNING ON ARRIVAL. PT WAS RUNNING MID 80'S O2 THROUGH THE NIGHT AND FIRST TX WAS GIVEN 2 HRS AGO. 100% WITH THE TX ON ARRIVAL Source: patient Exam Limitations: no limitations History of Present Illness Date Seen by Provider: Aug 28, 2023 Time Seen by Provider: 07:36 Initial Comments 70-year-old female with past medical history most notable for heart failure, chronic UTIs coming in via EMS from the [facility] due to shortness of breath. She was reportedly in the mid 80s throughout the night, given some breathing treatments which did have some improvement. She does take twice daily Lasix, but she states she does have an increase in fluid she thinks. Denies any chest pain, fever, dysuria, or any other concerns. Allergies and Home Medications Allergies Coded Allergies: cephalexin (Verified Allergy, Unknown, 07/12/23) codeine (Verified Allergy, Unknown, 07/12/23) latex (Unverified Allergy, Unknown, 12/10/22) morphine (Verified Allergy, Unknown, 07/12/23) Patient Home Medication List Home Medication List Reviewed: Yes Acetaminophen (Tylenol) 325 Mg Tablet, 650 MG PEG Q6H PRN for PAIN-MILD (1-4) Prescribed by: MAURICIO KHAN on 07/20/23 1046 Albuterol Sulfate (Albuterol Sulfate) 2.5 Mg/3 Ml (0.083 %) Vial.neb, 3 ML NEB Q6H PRN for SHORTNESS OF BREATH Prescribed by: MAURICIO KHAN on 07/20/23 1046 Amiodarone HCl (Amiodarone HCl) 200 Mg Tablet, 200 MG PEG DAILY Prescribed by: MAURICIO KHAN on 07/20/23 1046 Apixaban (Eliquis) 5 Mg Tablet, 5 MG PEG BID Prescribed by: MAURICIO KHAN on 07/20/23 1046 Aripiprazole (Aripiprazole) 10 Mg Tablet, 10 MG PEG DAILY Prescribed by: MAURICIO KHAN on 07/20/23 1046 Ascorbic Acid (Vitamin C) 500 Mg Tablet, 500 MG PO BID, (Reported) Entered as Reported by: MACY RODRIGUEZ on 07/13/23 1516 Aspirin (Aspirin EC) 81 Mg Tablet.dr, 81 MG PO DAILY Prescribed by: MAURICIO KHAN on 08/16/23 1033 Betamethasone Dipropionate (Betamethasone Dipropionate) 0.05 % Lotion, 1 APPLIC TOP UD PRN for ECZEMA, (Reported) Entered as Reported by: MACY RODRIGUEZ on 07/13/23 151 Carvedilol (Carvedilol) 6.25 Mg Tablet, 6.25 MG PO BID Prescribed by: MAURICIO KHAN on 08/16/23 1033 Cholecalciferol (Vitamin D3) (Vitamin D3) 25 Mcg (1000 Unit) Tab.chew, 25 MCG PO DAILY, (Reported) Entered as Reported by: MACY RODRIGUEZ on 07/13/23 151 Cholestyramine/Aspartame (Prevalite Packet) 4 Gram Powd.pack, 4 GM PO TID Prescribed by: MAURICIO KHAN on 07/20/23 104 Ertapenem Sodium (Ertapenem) 1 Gram Vial, 1 GM IJ Q24H Prescribed by: MAURICIO KHAN on 08/16/23 1102 Fluoxetine HCl (Fluoxetine HCl) 20 Mg Tablet, 20 MG PEG DAILY Prescribed by: MAURICIO KHAN on 07/20/23 1046 Fluticasone Propionate (Fluticasone Propionate) 50 Mcg/Actuation [place].susp, 1 SPRAY NSEACH DAILY, (Reported) Entered as Reported by: MACY RODRIGUEZ on 07/13/23 151 Furosemide (Furosemide) 40 Mg Tablet, 40 MG PEG DAILY@07,17 Prescribed by: MAURICIO KHAN on 07/20/23 104 Hydrocodone/Acetaminophen (Hydrocodone-Acetamin 10-325 mg) 10 Mg-325 Mg Tablet, 1 EA PEG QID Prescribed by: MAURICIO KHAN on 07/20/23 104 Hydroxychloroquine Sulfate (Hydroxychloroquine Sulfate) 200 Mg Tablet, 200 MG PEG Q12H Prescribed by: MAURICIO KHAN on 07/20/23 104 L. Acidophilus/Bulgaricus (Floranex Tablet) 1 Million Cell Tablet, 2 EACH TID, (Reported) Entered as Reported by: MACY RODRIGUEZ on 07/13/23 151 Levothyroxine Sodium (Levothyroxine Sodium) 112 Mcg Tablet, 112 MCG PEG DAILY Prescribed by: MAURICIO KHAN on 07/20/23 104 Loperamide HCl (Loperamide) 2 Mg Capsule, 2 MG Q12H, (Reported) Entered as Reported by: MACY RODRIGUEZ on 07/13/231515 Loperamide HCl (Loperamide) 2 Mg Tablet, 2 MG DAILY PRN for LOOSE STOOLS, (Reported) Entered as Reported by: MACY RODRIGUEZ on 07/13/231515 Loratadine (Claritin) 5 Mg Tab.rapdis, 10 MG PEG DAILY Prescribed by: MAURICIO KHAN on 07/20/23 104 Lorazepam (Lorazepam) 2 Mg/Ml Oral.conc, 0.125 ML PEG Q8H Prescribed by: MAURICIO KHAN on 07/20/231045 Melatonin (Melatonin) 3 Mg Tablet, 3 MG HS PRN for SLEEP, (Reported) Entered as Reported by: MACY RODRIGUEZ on 07/13/231515 Multivitamin with Minerals (One Daily Plus Minerals) 1 Each Tablet, 1 EACH DAILY, (Reported) Entered as Reported by: MACY RODRIGUEZ on 07/13/231515 Nitrofurantoin Macrocrystal (Nitrofurantoin) 100 Mg Capsule, 100 MG PO BID Prescribed by: THIEN SARAH on 08/06/23 1254 Nystatin (Nystatin) 100,000 Unit/Gram Powder, 1 APPLIC TOP Q12H, (Reported) Entered as Reported by: MACY RODRIGUEZ on 07/13/231515 Ondansetron (Ondansetron Odt) 4 Mg Tab.rapdis, 4 MG PEG Q8H PRN for NAUSEA/VOMITING-1ST LINE Prescribed by: MAURICIO KHAN on 07/20/23 104 Pantoprazole Sodium (Pantoprazole Sodium) 40 Mg Granpkt.dr, 40 MG PEG DAILY Prescribed by: MAURICIO KHAN on 07/20/23 104 Polyethylene Glycol 3350 (Miralax) 17 Gram/Dose Powder, 119 GM FEEDING TID Prescribed by: THIEN SARAH on 08/06/23 1254 Potassium Chloride (Potassium Chloride) 20 Meq Packet, 20 MEQ PO DAILY Prescribed by: MAURICIO KHAN on 07/20/23 1046 Pramipexole Di-HCl (Pramipexole Dihydrochloride) 0.125 Mg Tablet, 0.125 MG PEG HS Prescribed by: MAURICIO KHAN on 07/20/23 1046 Pregabalin (Pregabalin) 150 Mg Capsule, 150 MG PEG TID Prescribed by: MAURICIO KHAN on 07/20/23 1046 Pseudoephedrine HCl (Children's Sudafed) 15 Mg/5 Ml Liquid, 20 ML Q8H PRN for SINUS PAIN/PRESSURE, (Reported) Entered as Reported by: MACY RODRIGUEZ on 07/13/23 151 Psyllium Husk (with Sugar) (Metamucil Free Powder) 3 Gram/7 Gram Powder, 7 GM BID, (Reported) Entered as Reported by: MACY RODRIGUEZ on 07/13/23 151 Quetiapine Fumarate (Quetiapine Fumarate) 25 Mg Tablet, 25 MG PEG HS Prescribed by: MAURICIO KHAN on 07/20/23 104 Simethicone (Simethicone) 125 Mg Capsule, 125 MG QID PRN for GAS, (Reported) Entered as Reported by: MACY RODRIGUEZ on 07/13/23 151 Sucralfate (Sucralfate) 1 Gram Tablet, 1 GM PO ACHS Prescribed by: MAURICIO KHAN on 08/16/23 1033 Review of Systems Review of Systems Constitutional: No fever Respiratory: see HPI Cardiovascular: no symptoms reported Gastrointestinal: no symptoms reported Genitourinary: no symptoms reported Musculoskeletal: no symptoms reported Past Vtnpxzz-Luakis-Otbyrh Hx Patient Social History Tobacco Use?: No Substance use?: No Alcohol Use?: No Past Medical History Surgery/Hospitalization HX: HTN, Amp left leg [place], uti-chronic, chf, depression, anemia, fib, hypothyroidims, chromic kidney disease,neuropathy, sleep apnea, Surgeries: Yes Amputation, Gallbladder, Hysterectomy, Joint Replacement, Orthopedic Respiratory: Yes (CHRONIC RESP FAILURE--O2 DEPENDENT 2-3L/NC) Chronic Bronchitis Cardiac: Yes (RBBB; CHF) Atrial Fibrillation, Chronic Edema/Swelling, Coronary Artery Disease, High Cholesterol, Hypertension Neurological: Yes Dementia Genitourinary: Yes (INDWELLING COLEMAN) Bladder Infection, UTI-Chronic Gastrointestinal: Yes Gastroesophageal Reflux, Gall Bladder Disease Musculoskeletal: Yes (LEFT AKA;RIGHT KNEE REPLACEMENT; BED BOUND) Amputee Endocrine: Yes (MORBID OBESITY) Hypothyroidsim HEENT: No Cancer: No Psychosocial: Yes Anxiety, Depression Integumentary: No Blood Disorders: No Family Medical History No Pertinent Family Hx SOCIAL HISTORY: -SMOKED A LITTLE BIT, QUIT IN 1960'S -DENIES ETOH -DENIES DRUG USE PAST SURGICAL HISTORY: -OPEN CHOLECYSTECTOMY -HYSTERECTOMY/BILATERAL SALPINGO-OOPHORECTOMY -RIGHT KNEE REPLACEMENT -LEFT KNEE REPLACEMENT DONE BY DR. TSAI IN [place], WHICH BECAME INFECTED AND PT EVENTUALLY HAD LEFT ABOVE THE KNEE AMPUTATION 03/09/23 IN [place] Physical Exam Vital Signs - First Documented 08/28/23 07:36 Temp 36.9 Pulse 52 Resp 17 B/P (MAP) 167/79 (108) Pulse Ox 100 O2 Delivery Non Rebreather Capillary Refill : Height: '" Weight: lbs. oz. kg; 35.00 BMI Method: General Appearance: WD/WN, mild distress Eyes: Bilateral Eye Normal Inspection HEENT: PERRL/EOMI, normal ENT inspection, pharynx normal Neck: non-tender, full range of motion, supple, normal inspection Respiratory: no respiratory distress, accessory muscle use, crackles Cardiovascular: regular rate, rhythm Gastrointestinal: normal bowel sounds, non tender, soft Extremities: normal range of motion, non-tender, normal inspection, no calf tenderness, pedal edema Neurologic/Psychiatric: no motor/sensory deficits, alert, normal mood/affect, oriented x 3 Skin: normal color, warm/dry Progress/Results/Core Measures Suspected Sepsis SIRS Temperature: Pulse: 52 Respiratory Rate: 17 Laboratory Tests 08/28/23 07:44: White Blood Count 9.7 Blood Pressure 167 /79 Mean: 108 Laboratory Tests 08/28/23 07:44: Creatinine 0.74, Platelet Count 190, Total Bilirubin 0.4 Results/Orders Lab Results Laboratory Tests Test 08/28/23 07:44 08/28/23 07:57 Range/Units White Blood Count 9.7 4.3-11.0 10^3/uL Red Blood Count 3.41 L 3.80-5.11 10^6/uL Hemoglobin 9.7 L 11.5-16.0 g/dL Hematocrit 32 L 35-52 % Mean Corpuscular Volume 95 80-99 fL Mean Corpuscular Hemoglobin 28 25-34 pg Mean Corpuscular Hemoglobin Concent 30 L 32-36 g/dL Red Cell Distribution Width 17.7 H 10.0-14.5 % Platelet Count 190 130-400 10^3/uL Mean Platelet Volume 11.6 9.0-12.2 fL Immature Granulocyte % (Auto) 0 % Neutrophils (%) (Auto) 80 H 42-75 % Lymphocytes (%) (Auto) 9 L 12-44 % Monocytes (%) (Auto) 7 0-12 % Eosinophils (%) (Auto) 3 0-10 % Basophils (%) (Auto) 1 0-10 % Neutrophils # (Auto) 7.7 1.8-7.8 10^3/uL Lymphocytes # (Auto) 0.9 L 1.0-4.0 10^3/uL Monocytes # (Auto) 0.7 0.0-1.0 10^3/uL Eosinophils # (Auto) 0.3 0.0-0.3 10^3/uL Basophils # (Auto) 0.1 0.0-0.1 10^3/uL Immature Granulocyte # (Auto) 0.0 0.0-0.1 10^3/uL Activated Partial Thromboplast Time 41 H 24-35 SEC Sodium Level 145 135-145 MMOL/L Potassium Level 4.0 3.6-5.0 MMOL/L Chloride Level 99 98-107 MMOL/L Carbon Dioxide Level 36 H 21-32 MMOL/L Anion Gap 10 5-14 MMOL/L Blood Urea Nitrogen 53 H 7-18 MG/DL Creatinine 0.74 0.60-1.30 MG/DL Estimat Glomerular Filtration Rate 86 BUN/Creatinine Ratio 72 Glucose Level 143 H 70-105 MG/DL Calcium Level 8.7 8.5-10.1 MG/DL Corrected Calcium 9.3 8.5-10.1 MG/DL Total Bilirubin 0.4 0.1-1.0 MG/DL Aspartate Amino Transf (AST/SGOT) 31 5-34 U/L Alanine Aminotransferase (ALT/SGPT) 33 0-55 U/L Alkaline Phosphatase 149 H 40-136 U/L Troponin I < 0.028 <0.028 NG/ML B-Type Natriuretic Peptide 289.8 H <100.0 PG/ML Total Protein 7.5 6.4-8.2 GM/DL Albumin 3.2 3.2-4.5 GM/DL Influenza Type A (RT-PCR) Not Detected Not Detecte Influenza Type B (RT-PCR) Not Detected Not Detecte SARS-CoV-2 RNA (RT-PCR) Not Detected Not Detecte My Orders Orders - RUSTY JAMES MD [facility] [place] (08/28/23 07:41) Cbc And Automated Diff (08/28/23 07:41) Comprehensive Metabolic Panel (08/28/23 07:41) Partial Thromboplastin Time (08/28/23 07:41) Troponin I Satish (08/28/23 07:41) Influenza A And B By Pcr (08/28/23 07:41) Chest 1 View, Ap/Pa Only (08/28/23 07:41) Ed Iv/Invasive Line Start (08/28/23 07:41) Ekg Tracing (08/28/23 07:41) Covid 19 Inhouse Test (08/28/23 07:41) Ceftriaxone Iv/Im (Ceftriaxone Iv/Im) (08/28/23 08:45) Furosemide Injection (Furosemide Injec (08/28/23 08:45) Vital Signs/I&O 08/28/23 07:36 Temp 36.9 Pulse 52 Resp 17 B/P (MAP) 167/79 (108) Pulse Ox 100 O2 Delivery Non Rebreather Capillary Refill : Blood Pressure Mean: 108 Progress Note : Progress Note 73-year-old female with above history coming in due to shortness of breath. The patient was placed on 3 L here with oxygen in the low to mid 90s. Lungs with crackles on exam. Given IV Lasix here. Chest x-ray ordered and interpreted by me showing likely pulmonary edema, unclear if there could be pneumonia as well. She was given IV ceftriaxone just in case. I do not hear any significant wheezing, will hold off on steroids, also given this may increase fluid overload for her. EKG with no acute ischemic changes my interpretation. Troponin negative, BNP slightly elevated above her baseline, normal creatinine. I contacted Dr. Britton, she will admit the patient under inpatient status for further evaluation and management. ECG Initial ECG Impression Date: Aug 28, 2023 Initial ECG Impression Time: 07:55 Initial ECG Rate: 52 Initial ECG Rhythm: S.Lan Comment Wide QRS with a right bundle branch block, no STEMI Diagnostic Imaging Diagonstic Imaging: Xray (chest) Comments [facility] [place], [place] NAME: ARLEEN LIZ [facility] REC#: [id number] PT STATUS: REG ER : 1950 PHYSICIAN: RUSTY JAMES MD ADMIT DATE: 08/28/23/ER Signed Date of Exam:08/28/23 CHEST 1 VIEW, AP/PA ONLY INDICATION: Dyspnea. COMPARISON: 08/13/2023. DISCUSSION: Single portable upright view of the chest was obtained. Marked cardiomegaly is stable. Moderate left pleural effusion is stable. Central venous congestion is increased. Bilateral mixed interstitial and alveolar infiltrates are increased, likely moderate to severe pulmonary edema. No pneumothorax or osseous abnormality. IMPRESSION: 1. Cardiomegaly with worsening failure. Dictated by: Dictated on workstation # [id number] Dict: 08/28/23822 Trans: 08/28/23823 [facility] [id number] Interpreted by: KALIN BOSCH MD Electronically signed by: KALIN BOSCH MD 08/28/23823 Departure Impression Primary Impression: Acute on chronic heart failure Qualified Codes: I50.9 - Heart failure, unspecified Additional Impression: Respiratory failure Qualified Codes: J96.01 - Acute respiratory failure with hypoxia Disposition: ADMITTED INPATIENT Condition: Stable Admissions Decision to Admit Reason: Admit from ER (General) Decision to Admit/Date: Aug 28, 2023 Time/Decision to Admit Time: 09:30 Departure-Patient Inst. Referrals: EMANUEL [facility]ILLA (PCP/Family) Primary Care Physician RUSTY JAMES MD Aug 28, 2023 09:37
[2023-08-28] MEDS ORDERED: ONDANSETRON INJECTION 4 MG/2 ML (SDV) IVP ONE (09:45)
[2023-08-28 11:30] VITALS: BP 195/83
[2023-08-28] MEDS ORDERED: MELATONIN 3 MG TABLET PO PRN (12:00)
[2023-08-28] MEDS ORDERED: ENOXAPARIN 40 MG/0.4 ML SYRINGE SC SCH (12:00)
[2023-08-28] MEDS ORDERED: MILK OF MAGNESIA 400 MG/5 ML 30 ML UDC PO PRN (12:00)
[2023-08-28] MEDS ORDERED: BENZONATATE 100 MG CAPSULE PO PRN (12:00)
[2023-08-28] MEDS ORDERED: ANTACID SUSPENSION 30 ML UDC PO PRN (12:00)
[2023-08-28 12:09] VITALS: BP 182/75
--- NOTE | 2023-08-28 14:40 | History & Physical ---
ERROL TORRES MD,RESIDENT 08/28/23 1440: HPI History of Present Illness: Pt is a 72 yo female with a medcal history significant for CHF, AFib, AKA, hypothyroidism. She presented to the ED from her halfway for increased SOB and hypoxia. Overnight her oxygen saturation has been dipping to the 80s, this improved after a couple of treatments. Pt reports that she used to wear a CPAP at home however has not in the last few weeks as she said she didn't think she needed it. Pt appears to be a poor historian. Source: patient Time Seen by Provider: 09:45 Attending Physician Di Pagan PCP Admitting Physician: Alyssa Maier MD Attending Physician: Alyssa Maier MD Consult Date of Admission Aug 28, 2023 at 10:42 Home Medications Home Medications Reviewed patient Home Medication Reconciliation performed by pharmacy medication reconciliations radiation control technician and/or nursing. Patients Allergies have been reviewed. Allergies Coded Allergies: cephalexin (Verified Allergy, Unknown, 07/12/23) codeine (Verified Allergy, Unknown, 07/12/23) latex (Unverified Allergy, Unknown, 12/10/22) morphine (Verified Allergy, Unknown, 07/12/23) ARX-Qfugwi-Hpbozt Hx Patient Social History Smoking Status: Never a Smoker Alcohol Use?: No Immunizations Up To Date Influenza Vaccine Up-to-Date: No; Not Current Family Medical History Significant Family History: No Pertinent Family Hx Other Significan Family Hx: SOCIAL HISTORY: -SMOKED A LITTLE BIT, QUIT IN [place] -DENIES ETOH -DENIES DRUG USE PAST SURGICAL HISTORY: -OPEN CHOLECYSTECTOMY -HYSTERECTOMY/BILATERAL SALPINGO-OOPHORECTOMY -RIGHT KNEE REPLACEMENT -LEFT KNEE REPLACEMENT DONE BY DR. TSAI IN [place], WHICH BECAME INFECTED AND PT EVENTUALLY HAD LEFT ABOVE THE KNEE AMPUTATION 03/09/23 IN [place] Review of Systems ([facility]) Constitutional: no symptoms reported Respiratory: short of breath Cardiovascular: edema Gastrointestinal: no symptoms reported Skin: no symptoms reported Psychiatric/Neurological: No Symptoms Reported Physical Exam-([facility]) Physical Exam Vital Signs VS - Last 72 Hours, by Label 08/28/23 08/28/23 08/28/23 08/28/23 07:36 07:45 10:55 11:30 Temp 36.9 36.9 36.2 Pulse 52 51 56 Resp 17 18 18 B/P (MAP) 167/79 (108) 146/66 195/83 (120) Pulse Ox 100 98 94 O2 Delivery Non Rebreather Nasal Cannula Nasal Cannula Nasal Cannula O2 Flow Rate 3.00 3.00 3.00 08/28/23 08/28/23 12:09 12:43 Pulse 50 54 B/P (MAP) 182/75 (110) Capillary Refill : General Appearance: no apparent distress Eyes: Bilateral Eye EOMI Neck: non-tender Respiratory: rales, wheezing Cardiovascular: regular rate, rhythm Gastrointestinal: non tender, soft, other (PEG tube in place) Extremities: pedal edema (Edema to mid-calf) Neurologic/Psychiatric: alert, normal mood/affect, oriented x 3 Skin: ecchymosis Assessment/Plan Assessment/Plan Admission Status: Inpatient Order (span 2 midnights) (1) Acute on chronic heart failure Status: Acute Assessment & Plan: Acute onset SOB BNP 289.8 CXR: Qualifiers: Qualified Codes: I50.9 - Heart failure, unspecified (2) Respiratory failure Status: Acute Qualifiers: Qualified Codes: J96.01 - Acute respiratory failure with hypoxia (3) Pulmonary edema Status: Acute ALYSSA MAIER MD 08/28/232043: Home Medications Allergies Coded Allergies: cephalexin (Verified Allergy, Unknown, 07/12/23) codeine (Verified Allergy, Unknown, 07/12/23) latex (Unverified Allergy, Unknown, 12/10/22) morphine (Verified Allergy, Unknown, 07/12/23) Assessment/Plan Physician Addendum Addendum Pt presented to the ER duet hypoxia and found to be in CHF exacerbation. Was already on oral Lasix but worsening so will start IV lasix. Catheter in place for UOP monitor. BNP up from previous admission earlier this month. Near her baseline oxygen so will try to wean as able. . I personally have seen and evaluated the patient and performed the physical exam. I agree with the documented assessment and plan. Progress 20:42 ERROL TORRES MD,RESIDENT Aug 28, 2023 14:40 ALYSSA MAIER MD Aug 28, 2023 20:44
[2023-08-28] MEDS ORDERED: carvediloL 6.25 MG TABLET FEEDING SCH (15:15)
[2023-08-28] MEDS: ONDANSETRON INJECTION 4 MG/2 ML (SDV) IV PRN (16:04)
[2023-08-28 16:21] VITALS: BP 130/51
[2023-08-28 17:04] VITALS: BP 130/51
[2023-08-28] MEDS ORDERED: RT-Ipratropium/Albuterol NEB 3 ML VIAL INH PRN (17:15)
[2023-08-28] MEDS ORDERED: CARV6.252 PEG (18:17)
[2023-08-28] MEDS ORDERED: FLUO40CA PEG (18:17)
[2023-08-28] MEDS ORDERED: IPRAT-ALBUT INH (18:17)
[2023-08-28] MEDS ORDERED: SUCR1TAB PEG (18:17)
[2023-08-28] MEDS ORDERED: LORAZ30SOL PEG (18:17)
[2023-08-28] MEDS ORDERED: HYDR118S10 PEG (18:17)
[2023-08-28] MEDS ORDERED: CHOL4PAC3 PEG (18:23)
[2023-08-28] MEDS ORDERED: POTA20PA28 PEG (18:23)
[2023-08-28] MEDS ORDERED: ASPI-1238 PEG (18:23)
[2023-08-28] MEDS ORDERED: LORazepam 0.5 MG TABLET PEG PRN (19:00)
[2023-08-28 19:06] VITALS: BP 106/66
[2023-08-28] MEDS: RT-Ipratropium/Albuterol NEB 3 ML VIAL INH SCH (20:37)
[2023-08-28] MEDS ORDERED: APIXABAN 5 MG TABLET PEG SCH (21:00)
[2023-08-28] MEDS ORDERED: carvediloL 6.25 MG TABLET PEG SCH (21:00)
[2023-08-28] MEDS: carvediloL 6.25 MG TABLET PEG SCH (21:27)
[2023-08-28] MEDS: ENOXAPARIN 120 MG/0.8 ML SYRINGE SQ SCH (21:27)
[2023-08-28] MEDS: FUROSEMIDE INJECTION 40 MG/4 ML VIAL IV SCH (21:27)
[2023-08-28 21:29] VITALS: BP 121/60
[2023-08-28] MEDS: LORazepam 0.5 MG TABLET PEG PRN (21:29)
[2023-08-29] VITALS (7 sets, daily range): BP systolic 98–160; BP diastolic 55–72
[2023-08-29] MEDS: RT-Ipratropium/Albuterol NEB 3 ML VIAL INH SCH ×4 (03:39→21:13)
[2023-08-29] MEDS: LORazepam 0.5 MG TABLET PEG PRN ×3 (07:56→21:10)
[2023-08-29] MEDS: ENOXAPARIN 120 MG/0.8 ML SYRINGE SQ SCH ×2 (07:57→21:10)
[2023-08-29] MEDS: carvediloL 6.25 MG TABLET PEG SCH ×2 (07:57→17:14)
[2023-08-29] MEDS: FUROSEMIDE INJECTION 40 MG/4 ML VIAL IV SCH ×2 (07:57→21:11)
[2023-08-29] MEDS: AMIODARONE 200 MG TABLET PEG SCH (07:57)
[2023-08-29] MEDS: ONDANSETRON INJECTION 4 MG/2 ML (SDV) IV PRN (07:57)
[2023-08-29] MEDS: LEVOTHYROXINE 112 MCG TABLET PEG SCH (10:00)
--- NOTE | 2023-08-29 12:33 | Progress Note - Hospitalist ---
Subjective HPI/CC On Admission Date Seen by Provider: Aug 29, 2023 Subjective/Events-last exam Pt complains of pain and needing a Vicodin. Also had another BM and needs cleaned up. No other complaints. Did note she has had hematuria for a while and her detention has set her up with Dr Mukherjee already. Encouraged her to keep that appt. Objective Exam Vital Signs Vital Signs Date Time Temp Pulse Resp B/P (MAP) Pulse Ox O2 Delivery O2 Flow Rate FiO2 08/29/23 11:12 36.0 57 16 142/63 (89) 95 Nasal Cannula 4.50 08/28/23 17:04 32 Capillary Refill : General Appearance: No Apparent Distress, Chronically ill, Obese Respiratory: Lungs Clear, No Respiratory Distress Cardiovascular: Regular Rate, Rhythm, No Murmur Gastrointestinal: Normal Bowel Sounds, Non Tender, Soft Extremity: Other (left AKA) Neurologic/Psychiatric: Alert, Oriented x3 Results/Procedures Lab Patient resulted labs reviewed. Assessment/Plan Assessment and Plan Assess & Plan/Chief Complaint Acutely decompensated CHF A fib Debility s/p left AKA Hematuria Plan Continue lasix UOP good (-2300mL yesterday) Resume home meds Keep outpatient urology appt PT/OT tomorrow ALYSSA ENG MD Aug 29, 2023 12:33
[2023-08-29] MEDS ORDERED: ONDANSETRON 4 MG ORAL DISSOLVE TABLET SL PRN (12:45)
[2023-08-29] MEDS ORDERED: MELATONIN 3 MG TABLET PEG PRN (12:45)
[2023-08-29] MEDS ORDERED: LOPERAMIDE 2 MG CAPSULE PEG SCH (12:45)
[2023-08-29] MEDS ORDERED: ACIDOPHILUS PEG SCH (13:00)
[2023-08-29] MEDS ORDERED: BULGARICUS PEG SCH (13:00)
[2023-08-29 13:13] LABS: HEMATOCRIT 30 % (35-52); HEMOGLOBIN 9.2 g/dL (11.5-16.0); MEAN CORPUSCULAR HEMOGLOBIN 28 pg (25-34); MEAN CORPUSCULAR HGB CONC 31 g/dL (32-36); MEAN CORPUSCULAR VOLUME 91 fL (80-99); MEAN PLATELET VOLUME 11.4 fL (9.0-12.2); PLATELET COUNT 178 10^3/uL (130-400)
[2023-08-29 13:26] LABS: POTASSIUM 3.4 MMOL/L (3.6-5.0)
[2023-08-29 13:27] LABS: CALCIUM 8.5 MG/DL (8.5-10.1)
[2023-08-29 13:31] LABS: CREATININE SERUM 0.72 MG/DL (0.60-1.30)
[2023-08-29] MEDS: PREGABALIN 150 MG CAPSULE PEG SCH ×2 (13:49→21:10)
[2023-08-29] MEDS: CHOLESTYRAMINE LITE 4 GM PACKET PEG SCH ×2 (13:49→21:10)
[2023-08-29] MEDS: HYDROcodone/APAP 7.5MG-325 MG/15 ML ORAL SOLN PEG PRN ×2 (13:49→21:11)
[2023-08-29] MEDS ORDERED: LOPERAMIDE 2 MG CAPSULE PEG PRN (15:00)
[2023-08-29] MEDS: NYSTATIN CREAM 30 GM TUBE TP SCH (15:09)
[2023-08-29] MEDS: SUCRALFATE 1 GM TABLET PEG SCH ×2 (15:15→21:10)
[2023-08-29] MEDS: ACETAMINOPHEN 325 MG TABLET PEG PRN (16:01)
[2023-08-29] MEDS: PRAMIPEXOLE 0.125 MG TABLET PEG SCH (21:10)
[2023-08-29] MEDS: QUEtiapine IMMEDIATE RELEASE 25 MG TABLET PEG SCH (21:10)
[2023-08-29] MEDS: LACTOBACILLUS ACIDOPHILUS (PROBIOTIC) CAPSULE PEG SCH (21:10)
[2023-08-30] VITALS (7 sets, daily range): BP systolic 100–128; BP diastolic 48–63
[2023-08-30] MEDS: NYSTATIN CREAM 30 GM TUBE TP SCH ×2 (00:27→13:51)
[2023-08-30] MEDS: RT-Ipratropium/Albuterol NEB 3 ML VIAL INH SCH ×4 (03:07→20:24)
[2023-08-30 05:11] LABS: HEMATOCRIT 29 % (35-52); HEMOGLOBIN 8.6 g/dL (11.5-16.0); MEAN CORPUSCULAR HEMOGLOBIN 28 pg (25-34); MEAN CORPUSCULAR HGB CONC 30 g/dL (32-36); MEAN CORPUSCULAR VOLUME 92 fL (80-99); MEAN PLATELET VOLUME 11.4 fL (9.0-12.2); PLATELET COUNT 173 10^3/uL (130-400); WHITE BLOOD COUNT 8.7 10^3/uL (4.3-11.0)
[2023-08-30 05:21] LABS: CALCIUM 8.4 MG/DL (8.5-10.1); CREATININE SERUM 0.74 MG/DL (0.60-1.30); POTASSIUM 3.4 MMOL/L (3.6-5.0)
[2023-08-30] MEDS: SUCRALFATE 1 GM TABLET PEG SCH ×4 (05:43→20:42)
[2023-08-30] MEDS: POTASSIUM CHLORIDE 20 MEQ TABLET PO SCH (05:43)
[2023-08-30] MEDS: HYDROcodone/APAP 7.5MG-325 MG/15 ML ORAL SOLN PEG PRN ×2 (05:43→13:55)
[2023-08-30] MEDS: carvediloL 6.25 MG TABLET PEG SCH ×2 (08:37→16:46)
[2023-08-30] MEDS: FUROSEMIDE INJECTION 40 MG/4 ML VIAL IV SCH ×2 (08:37→20:42)
[2023-08-30] MEDS: FLUoxetine 20 MG CAPSULE PEG SCH (08:38)
[2023-08-30] MEDS: LACTOBACILLUS ACIDOPHILUS (PROBIOTIC) CAPSULE PEG SCH ×3 (08:38→20:42)
[2023-08-30] MEDS: CHOLESTYRAMINE LITE 4 GM PACKET PEG SCH ×3 (08:38→20:43)
[2023-08-30] MEDS: AMIODARONE 200 MG TABLET PEG SCH (08:38)
[2023-08-30] MEDS: ARIPiprazole 10 MG TABLET PEG SCH (08:38)
[2023-08-30] MEDS: VITAMIN D3 25 MCG (1,000 UNITS) TABLET PEG SCH (08:39)
[2023-08-30] MEDS: ENOXAPARIN 120 MG/0.8 ML SYRINGE SQ SCH (08:39)
[2023-08-30] MEDS: PREGABALIN 150 MG CAPSULE PEG SCH ×3 (08:39→20:43)
[2023-08-30] MEDS: LORATADINE 10 MG TABLET PEG SCH (08:39)
[2023-08-30] MEDS: PANTOPRAZOLE 40 MG TABLET PO SCH (08:39)
[2023-08-30] MEDS ORDERED: VANCOMYCIN INJECTION 0.1 MG in NS (IVPB) 250 ML 250 ML IV SCH (08:45)
[2023-08-30] MEDS: FLUTICASONE NASAL SPRAY (120 SPRAYS) NS SCH (09:13)
[2023-08-30] MEDS ORDERED: VANCOMYCIN 2000 MG/NS 500 ML IVPB IV ONE ×2 (09:30)
--- NOTE | 2023-08-30 09:33 | Consultation-Cardiology ---
HPI-Cardiology Cardiology Consultation Date of Consultation 08/30/23 Date of Admission Time Seen by Provider: 09:45 Indication: Shortness of breath HPI 72-year-old lady with history of left AKA secondary to nonhealing wound, paroxysmal atrial fibrillation and congestive heart failure. Patient is a long-term resident, she came into the emergency room from the long-term e to increasing shortness of breath and fluid overload. Reported that her oxygen saturation was in the 80s. Reported some chest discomfort, no palpitation, no other complain Home Medications & Allergies Allergies: Coded Allergies: cephalexin (Verified Allergy, Unknown, 07/12/23) codeine (Verified Allergy, Unknown, 07/12/23) latex (Unverified Allergy, Unknown, 12/10/22) morphine (Verified Allergy, Unknown, 07/12/23) Home Medication List Reviewed: Yes TKJ-Plnpxm-Cgswdk Hx Patient Social History Marital Status: single Employed/Student: retired Smoking Status: Never a Smoker Alcohol Use?: No Past Medical History Discussed below Family Medical History Significant Family History: No Pertinent Family Hx Review of Systems-General Review of Systems Constitutional: no symptoms reported, malaise EENTM: see HPI, no symptoms reported Respiratory: see HPI; No cough, No dyspnea on exertion, No hemoptysis; orthopnea; No phlegm; short of breath; No stridor, No wheezing, No other Cardiovascular: see HPI, chest pain, edema; No Hx of Intervention, No palpitations, No syncope, No vascular heart diseas, No other Gastrointestinal: no symptoms reported Genitourinary: no symptoms reported Musculoskeletal: no symptoms reported Skin: no symptoms reported Psychiatric/Neurological: No Symptoms Reported Reviewed Test Results Reviewed Test Results Lab Laboratory Tests Test 08/29/23 13:00 08/30/23 04:50 Range/Units White Blood Count 9.0 8.7 4.3-11.0 10^3/uL Red Blood Count 3.31 L 3.12 L 3.80-5.11 10^6/uL Hemoglobin 9.2 L 8.6 L 11.5-16.0 g/dL Hematocrit 30 L 29 L 35-52 % Mean Corpuscular Volume 91 92 80-99 fL Mean Corpuscular Hemoglobin 28 28 25-34 pg Mean Corpuscular Hemoglobin Concent 31 L 30 L 32-36 g/dL Red Cell Distribution Width 17.4 H 17.5 H 10.0-14.5 % Platelet Count 178 173 130-400 10^3/uL Mean Platelet Volume 11.4 11.4 9.0-12.2 fL Sodium Level 146 H 144 135-145 MMOL/L Potassium Level 3.4 L 3.4 L 3.6-5.0 MMOL/L Chloride Level 94 L 95 L 98-107 MMOL/L Carbon Dioxide Level 41 H 41 H 21-32 MMOL/L Anion Gap 11 8 5-14 MMOL/L Blood Urea Nitrogen 34 H 31 H 7-18 MG/DL Creatinine 0.72 0.74 0.60-1.30 MG/DL Estimat Glomerular Filtration Rate 89 86 BUN/Creatinine Ratio 47 42 Glucose Level 127 H 123 H 70-105 MG/DL Calcium Level 8.5 8.4 L 8.5-10.1 MG/DL Physical Exam Physical Exam Vital Signs Vital Signs - First Documented 08/28/23 08/28/23 08/28/23 07:36 07:45 17:04 Temp 36.9 Pulse 52 Resp 17 B/P (MAP) 167/79 (108) Pulse Ox 100 O2 Delivery Non Rebreather O2 Flow Rate 3.00 FiO2 32 Capillary Refill : Height, Weight, BMI Height: '" Weight: lbs. oz. kg; 40.58 BMI Method: General Appearance: No Apparent Distress, Chronically ill, Obese Eyes: Bilateral Eye Normal Inspection, Bilateral Eye EOMI Respiratory: Lungs Clear, No Respiratory Distress Cardiovascular: Regular Rate, Rhythm, No Murmur Gastrointestinal: Normal Bowel Sounds, Non Tender, Soft Extremity: Other (left AKA) Neurologic/Psychiatric: Alert, Oriented x3 A/P-Cardiology Admission Diagnosis Congestive heart failure Acute on chronic left ventricular diastolic dysfunction Paroxysmal atrial fibrillation Hypertension Assessment/Plan Shortness of breath, acute decompensated left ventricular diastolic dysfunction Normal systolic function Responded well to aggressive diuresis, feeling better. Continue to monitor 2D Echo done 07/13/23 showing EF 65-70%. PA 15-20mmHg. Study not technically sufficient enough to evaluate LV diastolic function. Paroxysmal atrial fibrillation with left bundle branch block, back to sinus rhythm Currently in sinus rhythm. Continue to monitor Abdominal pain, constipation, alternating with diarrhea Managed by medical team Hypokalemia, replace and continue to monitor. Questionable history of coronary artery disease. Clinically stable at this time. Continue to monitor Hypothyroidism, Managed by primary care physician History of left ABBIE RANDOLPH MD Aug 30, 2023 09:33
--- NOTE | 2023-08-30 09:47 | Physical Therapy Progress Note ---
Therapy Progress Note Patient is from [place] and is dependent PLOF. Patient is bed bound and/or [facility] transfer prior to this hospital admission. Patient has left [facility] prior. No skilled PT indicated. TERRA HAYES PT Aug 30, 2023 09:47
[2023-08-30] MEDS: LEVOTHYROXINE 112 MCG TABLET PEG SCH (09:56)
[2023-08-30] MEDS: ACETAMINOPHEN 325 MG TABLET PEG PRN (09:56)
--- NOTE | 2023-08-30 10:07 | Progress Note - Hospitalist ---
CHRISTI SHEPHERD 08/30/23 1007: Subjective HPI/CC On Admission Date Seen by Provider: Aug 30, 2023 Time Seen by Provider: 09:12 Acute Decompensation of CHF Subjective/Events-last exam 08/30/2023: CC: Acute Decompensated CHF HPI: Radha, 72F, notes that she feels okay. She notes that she thinks her leg fe els more swollen today. She is tired and does not want to talk much. She notes that she has pain 5/10 dull on her back and bottom. Pt notes that she tries to adjust in the bed to provide relief. She notes that she also has a slight headache. She has no other concerns. She is not ambulating. She denies any SOB or congestion. Review of Systems General: No Chills, No Night Sweats; Fatigue HEENT: Head Aches; No Visual Changes, No Ear Pain Pulmonary: No Dyspnea; Cough; No Pleuritic Chest Pain Cardiovascular: Edema; No: Chest Pain, Palpitations, Paroxysmal Noc. Dyspnea Gastrointestinal: No: Nausea, Vomiting, Abdominal Pain Genitourinary: No Dysuria, No Frequency Musculoskeletal: back pain; No: neck pain, leg pain, foot pain Neurological: No: Weakness, Numbness Objective Exam Vital Signs Vital Signs Date Time Temp Pulse Resp B/P (MAP) Pulse Ox O2 Delivery O2 Flow Rate FiO2 08/30/23 08:30 Nasal Cannula 3.00 08/30/23 07:27 93 08/30/23 07:04 36.4 58 18 114/57 (76) 08/28/23 17:04 32 Capillary Refill : General Appearance: No Apparent Distress, WD/WN HEENT: PERRL/EOMI, Pale Conjunctivae (L), Pale Conjunctivae (R) Neck: Full Range of Motion, Normal Inspection, Non Tender, Supple Respiratory: Chest Non Tender, No Accessory Muscle Use, No Respiratory Distress, Crackles Cardiovascular: Regular Rate, Rhythm, No Murmur, Normal Peripheral Pulses Gastrointestinal: Normal Bowel Sounds, Non Tender, Soft Rectal: Deferred Back: Normal Inspection Extremity: Normal Capillary Refill, Non Tender, No Calf Tenderness, No Pedal Edema Neurologic/Psychiatric: Alert; No Oriented x3 (alert to person, place); Normal Mood/Affect Skin: Normal Color, Warm/Dry Lymphatic: No Adenopathy Results/Procedures Lab Laboratory Tests 08/29/23 13:00 08/30/23 04:50 Patient resulted labs reviewed. Assessment/Plan Assessment and Plan Assess & Plan/Chief Complaint 08/30/2023: A/P: -Acute Decompensation of CHF * Lasix 40mg BID * Dr. Magana Cardiology Consult -Hypokalemia * Potassium supplement 20meq -Sepsis * enterococcus species grown in blood sample * IV Vancomycin -A.Fib * home meds * cardiology -Debility * social work consult * potential palliative care discussion COPD * O2 supplementation NATALIE KHAN DO 08/31/23 0428: Subjective Subjective/Events-last exam Overall poor prognosis Hospital admits every week Palliative care consult Objective Exam General Appearance: No Apparent Distress, WD/WN, Chronically ill Respiratory: Decreased Breath Sounds Cardiovascular: Regular Rate, Rhythm Assessment/Plan Assessment and Plan Assess & Plan/Chief Complaint Needs hospice Supervisory-Addendum Brief Verification & Attestation Participated in pt care: history, MDM, physical Personally performed: exam, history, MDM, supervision of care Care discussed with: Medical Student Procedures: n/a Results interpretation: Verified all documentation Verification and Attestation of Medical Student E/M Service A medical student performed and documented this service in my presence. I reviewed and verified all information documented by the medical student and made modifications to such information, when appropriate. I personally performed the physical exam and medical decision making. Natalie Khan Aug 31, 2023,04:27 CHRISTI SHEPHERD Aug 30, 2023 10:07 NATALIE KHAN DO Aug 31, 2023 04:28
[2023-08-30] MEDS ORDERED: POTA20PA28 PEG (10:31)
[2023-08-30] MEDS ORDERED: FURO40TA4 PEG (10:31)
[2023-08-30] MEDS ORDERED: PANT40GR PEG (10:31)
[2023-08-30] MEDS ORDERED: ARIP10TA55 PEG (10:31)
[2023-08-30] MEDS ORDERED: LEVO112C4 PO (10:31)
[2023-08-30] MEDS ORDERED: CARV6.252 PEG (10:31)
[2023-08-30] MEDS ORDERED: SUCR1ORA15 PEG (10:31)
[2023-08-30] MEDS ORDERED: PRAM0.12 PO (10:31)
[2023-08-30] MEDS ORDERED: LORAZ30SOL PEG (10:31)
[2023-08-30] MEDS ORDERED: PREG150C47 PO (10:31)
[2023-08-30] MEDS ORDERED: ASPI-999 PEG (10:31)
[2023-08-30] MEDS ORDERED: ACET325T38 PEG (10:31)
[2023-08-30] MEDS ORDERED: ONDA4TAB11 SL (10:31)
[2023-08-30] MEDS ORDERED: IPRA3AMP31 IH (10:31)
[2023-08-30] MEDS ORDERED: AMIO200T65 PEG (10:31)
[2023-08-30] MEDS ORDERED: HYDR200T71 PO (10:31)
[2023-08-30] MEDS ORDERED: LORA5TAB9 PO ×2 (10:31→10:40)
[2023-08-30] MEDS ORDERED: CHOL4POW14 PEG (10:31)
[2023-08-30] MEDS ORDERED: QUET50TA23 PEG (10:31)
[2023-08-30] MEDS ORDERED: APIX5TAB PEG (10:31)
[2023-08-30] MEDS ORDERED: POLY17PO6 PO (10:31)
[2023-08-30] MEDS: QUEtiapine IMMEDIATE RELEASE 25 MG TABLET PEG SCH (20:43)
[2023-08-30] MEDS: APIXABAN 5 MG TABLET PEG SCH (20:43)
[2023-08-30] MEDS: PRAMIPEXOLE 0.125 MG TABLET PEG SCH (20:43)
[2023-08-30] MEDS ORDERED: VANCOMYCIN 1250 MG/NS 250 ML PREMIX IV SCH (21:00)
[2023-08-31] VITALS (8 sets, daily range): BP systolic 103–148; BP diastolic 48–96
[2023-08-31] MEDS: RT-Ipratropium/Albuterol NEB 3 ML VIAL INH SCH ×3 (02:26→15:09)
[2023-08-31] MEDS: NYSTATIN CREAM 30 GM TUBE TP SCH ×2 (03:26→13:03)
[2023-08-31] MEDS: SUCRALFATE 1 GM TABLET PEG SCH ×4 (05:01→21:02)
[2023-08-31] MEDS: POTASSIUM CHLORIDE 20 MEQ TABLET PO SCH (05:48)
[2023-08-31] MEDS: AMIODARONE 200 MG TABLET PEG SCH (08:18)
[2023-08-31] MEDS: LACTOBACILLUS ACIDOPHILUS (PROBIOTIC) CAPSULE PEG SCH ×3 (08:19→21:02)
[2023-08-31] MEDS: VITAMIN D3 25 MCG (1,000 UNITS) TABLET PEG SCH (08:19)
[2023-08-31] MEDS: FLUoxetine 20 MG CAPSULE PEG SCH (08:19)
[2023-08-31] MEDS: ARIPiprazole 10 MG TABLET PEG SCH (08:19)
[2023-08-31] MEDS: PANTOPRAZOLE 40 MG TABLET PO SCH (08:19)
[2023-08-31] MEDS: PREGABALIN 150 MG CAPSULE PEG SCH ×3 (08:19→21:02)
[2023-08-31] MEDS: LORATADINE 10 MG TABLET PEG SCH (08:20)
[2023-08-31] MEDS: APIXABAN 5 MG TABLET PEG SCH ×2 (08:20→21:02)
[2023-08-31] MEDS: FUROSEMIDE INJECTION 40 MG/4 ML VIAL IV SCH ×2 (08:20→21:02)
[2023-08-31] MEDS: carvediloL 6.25 MG TABLET PEG SCH ×2 (08:20→17:30)
[2023-08-31] MEDS: CHOLESTYRAMINE LITE 4 GM PACKET PEG SCH ×3 (08:21→21:02)
[2023-08-31] MEDS: ONDANSETRON INJECTION 4 MG/2 ML (SDV) IV PRN (08:21)
[2023-08-31] MEDS: FLUTICASONE NASAL SPRAY (120 SPRAYS) NS SCH (08:30)
--- NOTE | 2023-08-31 08:30 | Progress Note ---
ERROL TORRES MD,RESIDENT 08/31/23 0830: Subjective HPI/CC On Admission Acute Decompensation of CHF Subjective/Events-last exam No acute events overnight. Pt resting in bed. No concerns this morning. She had some questions regarding hospice care, which were answered to the Pt's satisfaction. Objective Exam Vital Signs Vital Signs Date Time Temp Pulse Resp B/P (MAP) Pulse Ox O2 Delivery O2 Flow Rate FiO2 08/31/23 11:10 36.8 56 18 106/51 (69) 95 Nasal Cannula 3.00 08/28/23 17:04 32 Capillary Refill : General Appearance: No Apparent Distress Respiratory: Rales Cardiovascular: Regular Rate, Rhythm Gastrointestinal: Non Tender, Soft, Other (PEG in place) Neurologic/Psychiatric: Alert, Oriented x3, Normal Mood/Affect Skin: Warm/Dry Results/Procedures Lab Patient resulted labs reviewed. Assessment/Plan Assessment and Plan Assess & Plan/Chief Complaint CC: SOB Acute on chronic CHF Bacteremia Diagnosis/Problems Diagnosis/Problems (1) Bacteremia due to Enterococcus Assessment & Plan: 1/2 BCx Enterococcus Faecium PLAN: Vancomycin BCx + sensitivities pending Trend WBCs with daily CBC Monitor vitals daily (2) Acute on chronic heart failure Status: Acute Assessment & Plan: Increased SOB, fluid overload PLAN: 40 mg IV Lasix BID PIE BAKER medications monitor I/O Palliative care consult --> hospice discussed Qualifiers: Qualified Codes: I50.9 - Heart failure, unspecified (3) Respiratory failure Status: Acute Assessment & Plan: PLAN: MAT protocol Supplemental O2 as needed Qualifiers: Qualified Codes: J96.01 - Acute respiratory failure with hypoxia (4) Atrial fibrillation, chronic Assessment & Plan: PLAN: PIE BAKER MAURICIO Abdullahi DO 08/31/232051: Subjective HPI/CC On Admission Date Seen by Provider: Aug 31, 2023 Time Seen by Provider: 11:00 Subjective/Events-last exam Hospice info given to the patient today Objective Exam General Appearance: No Apparent Distress, WD/WN Assessment/Plan Assessment and Plan Assess & Plan/Chief Complaint Needs hospice I personally performed the ellis portions of the visit, discussed case with resident and concur with resident documentation of history, physical exam, assessment and treatment plan unless otherwise noted. ERROL TORRES MD,RESIDENT Aug 31, 2023 08:30 MAURICIO KHAN DO Aug 31, 2023 20:52
--- NOTE | 2023-08-31 08:33 | Cardiology Progress Note ---
Subjective Date Seen by Provider: Aug 31, 2023 Time Seen by Provider: 08:32 Subjective/Events-last exam Patient was seen at bedside, laying down comfortably, no new complaint Objective-Cardiology Exam Last Set of Vital Signs Vital Signs 08/28/23 08/31/23 08/31/23 17:04 07:13 08:04 Temp 36.8 Pulse 53 Resp 18 B/P (MAP) 118/58 (78) Pulse Ox 97 O2 Delivery Nasal Cannula O2 Flow Rate 4.00 FiO2 32 I&O Intake and Output 08/31/23 00:00 Intake Total 650 ml Output Total 2425 ml Balance -1775 ml Intake Oral 0 ml IV Total 520 ml Enteral Flush 130 ml Output Urine Total 2425 ml # Bowel Movements 1 General: Alert, Oriented X3, Cooperative HEENT: Atraumatic, PERRLA Neck: Supple, No JVD, No Thyromegaly Lungs: Clear to Auscultation, Normal Air Movement Heart: Regular Rate, Normal S1, Normal S2, No Murmurs Abdomen: Normal Bowel Sounds, Soft, No Tenderness, No Hepatosplenomegaly, No Masses Extremities: No Clubbing, No Cyanosis, No Edema, Normal Pulses, No Tenderness/Swelling Skin: No Rashes, No Breakdown, No Significant Lesion Neuro: Normal Gait, Normal Speech, Strength at 5/5 X4 Ext, Normal Tone, Sensation Intact Psych/Mental Status: Mental Status NL, Mood NL A/P-Cardiology Admission Diagnosis Congestive heart failure Acute on chronic left ventricular diastolic dysfunction Paroxysmal atrial fibrillation Hypertension Assessment/Plan Shortness of breath, acute decompensated left ventricular diastolic dysfunction Normal systolic function Responded well to aggressive diuresis, feeling better. Continue to monitor 2D Echo done 07/13/23 showing EF 65-70%. PA 15-20mmHg. Study not technically sufficient enough to evaluate LV diastolic function. Paroxysmal atrial fibrillation with left bundle branch block, back to sinus rhythm Currently in sinus rhythm. Continue to monitor Abdominal pain, constipation, alternating with diarrhea Managed by medical team Hypokalemia, replace and continue to monitor. Defer management to primary care team Questionable history of coronary artery disease. Clinically stable at this time. Continue to monitor Hypothyroidism, Managed by primary care physician History of left AKBARA ABBIE BERGER MD Aug 31, 2023 08:33
[2023-08-31] MEDS: LEVOTHYROXINE 112 MCG TABLET PEG SCH (10:18)
--- NOTE | 2023-08-31 10:21 | Occupational Therapy Eval ---
OT Evaluation-General/PLF Medical Diagnosis Admission Date Aug 28, 2023 at 10:42 Medical Diagnosis: CHF Onset Date: Aug 28, 2023 Therapy Diagnosis Therapy Diagnosis: weakness Precautions Precautions/Isolations: Standard Precautions Referral Referral Reason: Self Care, Evaluation/Treatment Medical History Additional Medical History Acutely decompensated CHF A fib Debility s/p left AKA Hematuria Reviewed History: Yes Social History Home: [facility] ADL-Prior Level of Function SCALE: Activities may be completed with or without assistive devices. 9-[id number]-[id number] completes the activity by him/herself with no assistance from a helper. 5-Set-up or Clean-up Assistance-helper sets up or cleans up; patient completes activity. [place] assists only prior to or following the activity. 4-Supervision or Touching Assistance-helper provides verbal cues and/or touching/steadying and/or contact guard assistance as patient completes activity. Assistance may be provided throughout the activity or intermittently. 3-Partial/Moderate Assistance-helper does LESS THAN HALF the effort. [place] lifts, holds or supports trunk or limbs, but provides less than half the effort. 2-Substantial/Maximal Assistance-helper does MORE THAN HALF the effort. [place] lifts or holds trunk or limbs and provides more than half the effort. 9-Cdzozyrxs-mkemab does ALL the effort. Patient does none of the effort to complete the activity. Or, the assistance of 2 or more helpers is required for the patient to complete the activity. If activity was not attempted, code reason: 7-Patient Refused. 9-Not Applicable-not attempted and the patient did not perform the activity before the current illness, exacerbation or injury. 10-Not Attempted due to Environmental Limitations-(lack of equipment, weather restraints, etc.). 88-Not Attempted due to Medical Conditions or Safety Concerns. ADL PLOF Comments Heena transfer dependent, WC mobility dependent, NPO, PEG tube feeding, patient is able to use utensils for grooming with set up in reach Self Care: Needed Some Help Functional Cognition: Needed Some Help Drive Self: No OT Current Status Subjective BED bound agreeable to OT eval Mental Status/Objective Patient Orientation: Person, Place, Time, Situation Attachments: Bal Catheter, IV, PEG Tube Current Upper Extremity ROM WFL for UB ADLs and grooming Upper Extremity Strength MMT +3/5 grossly hand shape brick molder +4/5 ADL-Treatment Eating (QC): 88 (NPO) Oral Hygiene (QC): 5 Shower/Bathe Self (QC): 1 Upper Body Dressing (QC): 2 Lower Body Dressing (QC): 1 On/Off Footwear (QC): 1 Toileting Hygiene (QC): 1 Education OT Patient Education: Correct positioning, Exercise program, Modified ADL techniques, Progress toward Goal/Update tx plan, Purpose of tx/functional activities, Reviewed precautions, Rehab process, Safety issues Teaching Recipient: Patient Teaching Methods: Discussion Response to Teaching: Verbalize Understanding OT Cheese Cook Goals Cheese Cook Goals 1=Demonstrate adherence to instructed precautions during ADL tasks. 2=Patient will verbalize/demonstrate understanding of assistive devices/modifications for ADL. 3=Patient will improve strength/tolerance for activity to enable patient to perform ADL's. OT Education/Plan Problem List/Assessment Assessment: No Skilled OT Needs ID'd Discharge Recommendations Plan/Recommendations: Discontinue OT Treatment Plan/Plan of Care Patient would benefit from OT for education, treatment and training to promote independence in ADL's, mobility, safety and/or upper extremity function for ADL's. Plan of Care: OTHER (EVAL ONLY) Treatment Duration: Aug 31, 2023 Frequency: 1 time per week Estimated Hrs Per Day: .25 hour per day Agreement: Yes Rehab Potential: Guarded Time Start Time: 08:00 Stop Time: 08:21 DATE: Aug 31, 2023 Total Time Billed (hr/min): 21 Billed Treatment Time EVM 21 min ANNE MOLINA OT Aug 31, 2023 10:21
[2023-08-31] MEDS: LINEZOLID IVPB 300 ML IV SCH ×2 (11:41→21:02)
[2023-08-31] MEDS: HYDROcodone/APAP 7.5MG-325 MG/15 ML ORAL SOLN PEG PRN ×2 (13:03→21:03)
[2023-08-31] MEDS: ACETAMINOPHEN 325 MG TABLET PEG PRN (17:30)
[2023-08-31] MEDS ORDERED: TROUGH ORDER-PHARMACY XX ONE (20:00)
[2023-08-31] MEDS ORDERED: VANCOMYCIN 1250 MG/NS 250 ML PREMIX IV SCH (21:00)
[2023-08-31] MEDS: PRAMIPEXOLE 0.125 MG TABLET PEG SCH (21:02)
[2023-08-31] MEDS: QUEtiapine IMMEDIATE RELEASE 25 MG TABLET PEG SCH (21:02)
[2023-09-01] MEDS: NYSTATIN CREAM 30 GM TUBE TP SCH ×2 (01:48→12:32)
[2023-09-01 04:00] VITALS: BP 111/53
[2023-09-01] MEDS: SUCRALFATE 1 GM TABLET PEG SCH ×2 (04:35→10:07)
[2023-09-01] MEDS: POTASSIUM CHLORIDE 20 MEQ TABLET PO SCH (04:35)
[2023-09-01] MEDS: HYDROcodone/APAP 7.5MG-325 MG/15 ML ORAL SOLN PEG PRN ×2 (04:35→12:32)
[2023-09-01] MEDS: ONDANSETRON INJECTION 4 MG/2 ML (SDV) IV PRN (05:33)
[2023-09-01 07:26] VITALS: BP 138/62
[2023-09-01] MEDS: carvediloL 6.25 MG TABLET PEG SCH (08:40)
[2023-09-01] MEDS: APIXABAN 5 MG TABLET PEG SCH (08:40)
[2023-09-01] MEDS: LORATADINE 10 MG TABLET PEG SCH (08:40)
[2023-09-01] MEDS: PREGABALIN 150 MG CAPSULE PEG SCH ×2 (08:40→12:31)
[2023-09-01] MEDS: LACTOBACILLUS ACIDOPHILUS (PROBIOTIC) CAPSULE PEG SCH ×2 (08:40→12:31)
[2023-09-01] MEDS: ARIPiprazole 10 MG TABLET PEG SCH (08:40)
[2023-09-01] MEDS: VITAMIN D3 25 MCG (1,000 UNITS) TABLET PEG SCH (08:40)
[2023-09-01] MEDS: PANTOPRAZOLE 40 MG TABLET PO SCH (08:40)
[2023-09-01] MEDS: FLUoxetine 20 MG CAPSULE PEG SCH (08:40)
[2023-09-01] MEDS: AMIODARONE 200 MG TABLET PEG SCH (08:40)
[2023-09-01] MEDS: ACETAMINOPHEN 325 MG TABLET PEG PRN (08:45)
[2023-09-01] MEDS: FUROSEMIDE INJECTION 40 MG/4 ML VIAL IV SCH (08:45)
[2023-09-01] MEDS: LINEZOLID IVPB 300 ML IV SCH (08:45)
[2023-09-01] MEDS: CHOLESTYRAMINE LITE 4 GM PACKET PEG SCH ×2 (08:53→12:32)
--- NOTE | 2023-09-01 08:59 | Progress Note ---
ERROL TORRES MD,RESIDENT 09/01/23 0859: Progress Note Radha is a 72 yo female with a medcal history significant for CHF, AFib, AKA, obesity, hypothyroidism. [facility] and [facility]. Overnight at her facility her oxygen saturation was dipping to the 80s, this improved after a couple of breathing treatments. Pt reported that she used to wear a CPAP at home however has not in the last few weeks as she said she didn't think she needed it. She remained on 3-4L oxygen supplementation. Blood culture gram stains demonstrated gram positive cocci in chains and she was started on vancomycin. Cultures grew enterococcus faecium and the vancomycin to linezolid for possible resistant strains. Due to her diminished condition with multiple comorbidities, palliative care was consulted and discussed possible option for hospice care on discharge for patient. She agreed to leave the hospital on hospice care at [facility]. Pt stable for discharge on 09/01. MAURICIO KHAN DO 09/01/232047: Progress Note I personally performed the ellis portions of the visit, discussed case with resident and concur with resident documentation of history, physical exam, assessment and treatment plan unless otherwise noted. ERROL TORRES MD,RESIDENT Sep 01, 2023 08:59 MAURICIO KHAN DO Sep 01, 2023 20:48
[2023-09-01] MEDS: FLUTICASONE NASAL SPRAY (120 SPRAYS) NS SCH (09:03)
[2023-09-01] MEDS: LEVOTHYROXINE 112 MCG TABLET PEG SCH (10:06)
--- NOTE | 2023-09-01 11:01 | Cardiology Progress Note ---
Subjective Date Seen by Provider: Sep 01, 2023 Time Seen by Provider: 11:01 Subjective/Events-last exam Patient in bed, no new complaints. Objective-Cardiology Exam Last Set of Vital Signs Vital Signs 08/28/23 09/01/23 09/01/23 17:04 07:26 08:00 Temp 36.4 Pulse 55 Resp 18 B/P (MAP) 138/62 (87) Pulse Ox 94 O2 Delivery Nasal Cannula O2 Flow Rate 3.00 FiO2 32 I&O Intake and Output 09/01/23 00:00 Intake Total 130 ml Output Total 3400 ml Balance -3270 ml Intake Oral 0 ml Enteral Flush 130 ml Output Urine Total 3400 ml # Bowel Movements 3 General: Alert, Oriented X3, Cooperative HEENT: Atraumatic, PERRLA Neck: Supple, No JVD, No Thyromegaly Lungs: Clear to Auscultation, Normal Air Movement Heart: Regular Rate, Normal S1, Normal S2, No Murmurs Abdomen: Normal Bowel Sounds, Soft, No Tenderness, No Hepatosplenomegaly, No Masses Extremities: No Clubbing, No Cyanosis, No Edema, Normal Pulses, No Tenderness/Swelling Skin: No Rashes, No Breakdown, No Significant Lesion Neuro: Normal Gait, Normal Speech, Strength at 5/5 X4 Ext, Normal Tone, Sensation Intact Psych/Mental Status: Mental Status NL, Mood NL A/P-Cardiology Admission Diagnosis Congestive heart failure Acute on chronic left ventricular diastolic dysfunction Paroxysmal atrial fibrillation Hypertension Assessment/Plan Shortness of breath, acute decompensated left ventricular diastolic dysfunction Normal systolic function Responded well to aggressive diuresis, feeling better. Continue to monitor 2D Echo done 07/13/23 showing EF 65-70%. PA 15-20mmHg. Study not technically sufficient enough to evaluate LV diastolic function. Paroxysmal atrial fibrillation with left bundle branch block, back to sinus rhythm Currently in sinus rhythm. Continue to monitor Abdominal pain, constipation, alternating with diarrhea Managed by medical team Hypokalemia, replace and continue to monitor. Defer management to primary care team Questionable history of coronary artery disease. Clinically stable at this time. Continue to monitor Hypothyroidism, Managed by primary care physician History of left AKBARA ESPERANZA MARAVILLA PA-C Sep 01, 2023 11:01
[2023-09-01 11:30] VITALS: BP 131/63
[2023-09-01] MEDS ORDERED: LNZ600T PO (12:00)
--- NOTE | 2023-09-01 12:06 | Discharge Summary ---
ERROL TORRES MD,RESIDENT 09/01/23 1206: Discharge Summary Hospital Course Problems/Dx: (1) Bacteremia due to Enterococcus (2) Acute on chronic heart failure Status: Acute Qualifiers: Qualified Codes: I50.9 - Heart failure, unspecified (3) Respiratory failure Status: Acute Qualifiers: Qualified Codes: J96.01 - Acute respiratory failure with hypoxia (4) Atrial fibrillation, chronic Hospital Course Date of Admission: Aug 28, 2023 at 10:42 Admission Diagnosis : Family Physician/Provider: Di Pagan Date of Discharge: 09/01/23 Discharge Diagnosis: Acute on chronic congestive heart failure Hospital Course: Pt admitted for SOB, increased work of breathing. Supplemental oxygen requirements similar to that at her [facility] prior to admission. Blood culture gram stain positive for gram positive cocci in chains, started on vancomycin. Blood cultures positive for enterococcus faecium, started on Linezolid. Palliative care consulted for goals of care discussion. Pt ultimately decided on hospice care on discharge. Pt stable for discharge to [facility] on 09/01 with prescription for Linezolid oral tablets for treatment of bacteremia. Labs and Pending Lab Test: Microbiology 08/28/23 Blood Culture - Preliminary, Resulted Enterococcus faecium Home Meds Active Linezolid 600 Mg Tablet 600 Mg PO BID 12 Days Reported Iprat-Albut 0.5-3(2.5) mg/3 ml (Ipratropium/Albuterol Sulfate) 0.5 Mg-3 Mg (2.5 Mg Base)/3 Ml Ampul.neb 3 Ml IH Q6H PRN Quetiapine Fumarate 50 Mg Tablet 50 Mg PEG HS Sucralfate 1 Gram/10 Ml Oral.susp 1 Gm PEG ACHS Carvedilol 6.25 Mg Tablet 6.25 Mg PEG BID Aspirin 81 Mg Tab.chew 81 Mg PEG DAILY Miralax (Polyethylene Glycol 3350) 17 Gram Powd.pack 17 Gm PO TID Furosemide 40 Mg Tablet 40 Mg PEG BID Lorazepam 2 Mg/Ml Oral.conc 0.125 Ml PEG Q6H PRN Cholestyramine Light Packet (Cholestyramine/Aspartame) 4 Gram Powd.pack 4 Gm PEG TID Eliquis (Apixaban) 5 Mg Tablet 5 Mg PEG BID Potassium Chloride 20 Meq Packet 20 Meq PEG DAILY Claritin (Loratadine) 5 Mg Tab.rapdis 10 Mg PO DAILY Amiodarone HCl 200 Mg Tablet 200 Mg PEG DAILY Hydroxychloroquine Sulfate 200 Mg Tablet 200 Mg PO BID Levothyroxine (Levothyroxine Sodium) 112 Mcg Capsule 112 Mcg PO DAILY Ondansetron Odt (Ondansetron) 4 Mg Tab.rapdis 4 Mg SL Q8H PRN Mirapex (Pramipexole) 0.125 Mg Tablet 0.125 Mg PO HS Pantoprazole Sodium 40 Mg Granpkt.dr 40 Mg PEG DAILY Tylenol (Acetaminophen) 325 Mg Tablet 650 Mg PEG Q6H PRN Pregabalin 150 Mg Capsule 150 Mg PO TID Aripiprazole 10 Mg Tablet 10 Mg PEG DAILY Hydrocodone-Acetamn 7.5-325/15 (Hydrocodone/Acetaminophen) 7.5 Mg-325 Mg/15 Ml S olution 15 Ml PEG Q6H PRN Fluoxetine HCl 40 Mg Capsule 40 Mg PEG DAILY Betamethasone Dipropionate 0.05 % Lotion 1 Applic TOP UD PRN Children's Sudafed (Pseudoephedrine HCl) 15 Mg/5 Ml Liquid 20 Ml PEG Q8H PRN Simethicone 125 Mg Capsule 125 Mg PEG QID PRN Nystatin 100,000 Unit/Gram Powder 1 Applic TOP Q12H Fluticasone Propionate 50 Mcg/Actuation [place].susp 1 [place] NSEACH DAILY Vitamin C (Ascorbic Acid) 500 Mg Tablet 500 Mg PEG BID One Daily Plus Minerals (Multivitamin with Minerals) 1 Each Tablet 1 Each PEG DAILY Floranex Tablet (L. Acidophilus/Bulgaricus) 1 Million Cell Tablet 2 Each PEG TID Melatonin 3 Mg Tablet 3 Mg PEG HS PRN Vitamin D3 (Cholecalciferol (Vitamin D3)) 25 Mcg (1000 Unit) Tab.chew 25 Mcg PEG DAILY Metamucil Free Powder (Psyllium Husk (with Sugar)) 3 Gram/7 Gram Powder 7 Gm PEG BID Loperamide (Loperamide HCl) 2 Mg Tablet 2 Mg PEG TID PRN Loperamide (Loperamide HCl) 2 Mg Capsule 2 Mg PEG Q12H Assessment/Pt Instructions Acute on chronic congestive heart failure Bacteremia Follow-up with PCP 7-14d after discharge. Hospice care per [facility]. Discharge Physical Examination Vital Signs Vital Signs Date Time Temp Pulse Resp B/P (MAP) Pulse Ox O2 Delivery O2 Flow Rate FiO2 09/01/23 11:43 94 Nasal Cannula 3.00 10/18/23 11:30 36.5 60 18 131/63 (85) 08/28/23 17:04 32 General Appearance: No Apparent Distress Respiratory: No Accessory Muscle Use, No Respiratory Distress, Other (Diminis hed BL) Cardiovascular: Regular Rate, Rhythm Gastrointestinal: Non Tender, Soft Skin: Warm/Dry Neurologic/Psychiatric: Alert, Oriented x3, Normal Mood/Affect Allergies: Coded Allergies: cephalexin (Verified Allergy, Unknown, 07/12/23) codeine (Verified Allergy, Unknown, 07/12/23) latex (Unverified Allergy, Unknown, 12/10/22) morphine (Verified Allergy, Unknown, 07/12/23) Discharge Summary Date of Admission Aug 28, 2023 at 10:42 Date of Discharge Discharge Diagnosis CC: SOB Acute on chronic CHF Bacteremia (1) Bacteremia due to Enterococcus Assessment & Plan: 1 BCx Enterococcus Faecium PLAN: Linezolid started due to possible resistance patterns (2) Acute on chronic heart failure Status: Acute Assessment & Plan: Increased SOB, fluid overload PLAN: 40 mg IV Lasix BID CYLINDER PRESS OPERATOR medications monitor I/O Palliative care consult --> hospice discussed Qualifiers: Qualified Codes: I50.9 - Heart failure, unspecified (3) Respiratory failure Status: Acute Assessment & Plan: PLAN: MAT protocol Supplemental O2 as needed Qualifiers: Qualified Codes: J96.01 - Acute respiratory failure with hypoxia (4) Atrial fibrillation, chronic Assessment & Plan: PLAN: CYLINDER PRESS OPERATOR MAURICIO Abdullahi DO 09/02/23 0448: Discharge Summary Hospital Course Was the Problem List Reviewed?: Yes Assessment/Pt Instructions Hospice I personally performed the ellis portions of the visit, discussed case with resident and concur with resident documentation of history, physical exam, assessment and treatment plan unless otherwise noted. Discharge Planning: <30 minutes discharge planning Discharge Instructions Discharge Diet: No Restrictions Discharge Physical Examination General Appearance: No Apparent Distress, WD/WN Allergies: Coded Allergies: cephalexin (Verified Allergy, Unknown, 07/12/23) codeine (Verified Allergy, Unknown, 07/12/23) latex (Unverified Allergy, Unknown, 12/10/22) morphine (Verified Allergy, Unknown, 07/12/23) ERROL TORRES MD,RESIDENT Sep 01, 2023 12:06 MAURICIO KHAN DO Sep 02, 2023 04:48
--- NOTE | 2023-09-02 14:43 | Physician Query Clarification ---
PQ-Further Specificity Admission/Discharge Admission Date: Aug 28, 2023 at 10:42 Discharge Date: Sep 01, 2023 at 14:08 Dr. Simmons, The medical record reflects the following clinical scenario: History/Risk Factors: acute on chronic diastolic CHF w/HTN and CKD, acute hypoxic respiratory failure Clinical Findings: Blood culture gram stain positive for gram positive cocci in chains, started on vancomycin. Blood cultures positive for enterococcus faecium, started on Linezolid. Treatment: Vancomycin, Linezolid Question: Can you further specify if the patient has bacteremia only or sepsis per the clinical indicators above? Please document a response in the Progress Notes or Discharge Summary. 1. gram positive and enterococcus sepsis 2. gram positive and enterococcus bacteremia only no sepsis 3. Other, with explanation of the clinical findings. 4. Clinically undetermined, no explanation for the clinical findings. PHYSICIAN RESPONSE Can you specify per above: 1 In responding to this query, please exercise your independent professional judgment. The purpose of this communication is to more accurately reflect the complexity of your patients condition. The fact that a question is asked does not imply that any particular answer is desired or expected. Thank you for your timely response to this clarification. Requestors name: Dale THIS PHYSICIAN QUERY FORM IS A PERMANENT PART OF THE MEDICAL RECORD DALE MCGARRY Sep 02, 2023 14:43 MAURICIO SIMMONS DO Sep 02, 2023 20:43
== END 2023-09-01 14:08 | disposition hospice, inpatient (51) | DRG 871 ==
LOC: EDUNIT# 07:33 → ER 07:34 → 4TH 10:42
PROVIDERS: ADMIT Family Medicine; ATTEND Internal Medicine
DX: A41.81 Sepsis due to Enterococcus (principal); I50.33 Acute on chronic diastolic (congestive) heart failure; J96.01 Acute respiratory failure with hypoxia; I13.0 Hypertensive heart and chronic kidney disease with heart failure and stage 1 through stage 4 chronic kidney disease, or unspecified chronic kidney disease; Z68.41 Body mass index [BMI] 40.0-44.9, adult; I45.2 Bifascicular block; N18.9 Chronic kidney disease, unspecified; R31.9 Hematuria, unspecified; I48.0 Paroxysmal atrial fibrillation; G62.9 Polyneuropathy, unspecified; E66.01 Morbid (severe) obesity due to excess calories; G47.30 Sleep apnea, unspecified; F32.A Depression, unspecified; D64.9 Anemia, unspecified; Z20.822 Contact with and (suspected) exposure to COVID-19; Z66 Do not resuscitate; I25.10 Atherosclerotic heart disease of native coronary artery without angina pectoris; E78.00 Pure hypercholesterolemia, unspecified; F03.90 Unspecified dementia, unspecified severity, without behavioral disturbance, psychotic disturbance, mood disturbance, and anxiety; K21.9 Gastro-esophageal reflux disease without esophagitis; E87.6 Hypokalemia; K59.00 Constipation, unspecified; R19.7 Diarrhea, unspecified; E03.9 Hypothyroidism, unspecified; Z89.612 Acquired absence of left leg above knee; Z88.1 Allergy status to other antibiotic agents; Z88.5 Allergy status to narcotic agent; Z79.899 Other long term (current) drug therapy; Z79.01 Long term (current) use of anticoagulants; Z79.82 Long term (current) use of aspirin; Z79.891 Long term (current) use of opiate analgesic
CPT/HCPCS: 36415; 71045; 80048; 80053; 83880; 84484; 85025; 85027; 85730; 87040; 87077; 87186; 87636; 93005; 94640; 94760; 96374; 96375